=== PATIENT | male | born 1960 | race Caucasian/White ===

== ENCOUNTER 2017-10-28 14:25 | Emergency (ER) | payer OTHER ==
[2017-10-28 14:35] VITALS: BP 147/83; PULSE 97; RESP 20; TEMP 98.1
--- NOTE | 2017-10-28 14:44 | ED ---
ENT HPI - General Chief complaint: ENT Stated complaint: Ear pain Time Seen by Provider: 10/28/17 14:35 Source: patient Mode of arrival: ambulatory Limitations: no limitations - History of Present Illness Initial comments: 57-year-old male patient presents to the emergency department today for evaluation of a "plugged" feeling in his left ear. Patient states that he can hear out of it however sounds muffled. He states that symptoms started after he sneezed a couple days ago. Patient states that he has a lot of problems with wax buildup was concerned that his ear was plugged. He denies any pain to the ear drainage from the ear. He denies any headaches or dizziness currently. He denies any fevers or chills. Patient denies any recent rash, shortness breath, chest pain, abdominal pain, nausea, vomiting, diarrhea, constipation, back pain, numbness, tingling, weakness, hematuria, dysuria, urinary urgency, urinary frequency, headache, visual changes, or any other complaints. - Related Data Home Medications Medication Instructions Recorded Confirmed Cholecalciferol [Vitamin D3] 1,000 unit PO DAILY 03/14/15 03/14/15 Fish Oil/Dha/Epa [Fish Oil 1,200 1 each PO DAILY 03/14/15 03/14/15 mg Fish Oil] Ibuprofen [Advil] 400 mg PO Q8HR PRN 03/14/15 03/14/15 Methocarbamol [Robaxin] 500 mg PO TID 03/14/15 03/14/15 Previous Rx's Medication Instructions Recorded Docusate [Colace] 100 mg PO DAILY #30 capsule 03/14/15 HYDROcodone/APAP 5-325MG [[place] 5] 1 each PO Q4HR PRN #20 tab 03/14/15 Naproxen [Naprosyn] 500 mg PO Q12HR #24 tab 03/14/15 Hydrocodone/Acetaminophen [[place] 2 each PO Q6HR PRN #15 tab 08/27/17 5-325] Fluticasone Nasal [place] [Flonase 1 spray EA NOSTRIL DAILY #1 bottle 10/28/17 Nasal [place]] Allergies Allergy/AdvReac Type Severity Reaction Status Date / Time latex Allergy Rash/Hives Verified 08/27/17 07:24 eye dilating drop Allergy jaw locked Uncoded 08/27/17 07:24 Review of Systems ROS Statement: Those systems with pertinent positive or pertinent negative responses have been documented in the HPI. ROS Other: All systems not noted in ROS Statement are negative. Past Medical History Past Medical History: Osteoarthritis (OA) Additional Past Medical History / Comment(s): Torn meniscus right knee; Vertigo ; Lower back pain History of Any Multi-Drug Resistant Organisms: None Reported Additional Past Surgical History / Comment(s): Varicocele Past Psychological History: No Psychological Hx Reported Smoking Status: Former smoker Past Alcohol Use History: Occasional, Rare Past Drug Use History: None Reported General Exam Limitations: no limitations General appearance: alert, in no apparent distress, other (This is a well- developed, well-nourished adult male patient no acute distress. Vital signs upon presentation are temperature 98.1F, pulse 97, respirations 20, blood pressure 147/83, pulse ox 99% on room air.) Eye exam: Present: normal appearance, PERRL, EOMI. Absent: scleral icterus, conjunctival injection, periorbital swelling ENT exam: Present: normal exam, normal oropharynx, mucous membranes moist, TM's normal bilaterally (Mild right external auditory canal wax build up, TM looks normal. ) Neck exam: Present: normal inspection. Absent: tenderness, meningismus, lymphadenopathy Respiratory exam: Present: normal lung sounds bilaterally. Absent: respiratory distress, wheezes, rales, rhonchi, stridor Cardiovascular Exam: Present: regular rate, normal rhythm, normal heart sounds. Absent: systolic murmur, diastolic murmur, rubs, gallop, clicks Neurological exam: Present: alert, oriented X3, CN II-XII intact Psychiatric exam: Present: normal affect, normal mood Skin exam: Present: warm, dry, intact, normal color. Absent: rash Course Vital Signs 10/28/17 14:32 Temperature 98.1 F Pulse Rate 97 Respiratory 20 Rate Blood Pressure 147/83 O2 Sat by Pulse 99 Oximetry Medical Decision Making - Medical Decision Making 57-year-old male patient presented to the emergency department today for complaints of a plugged feeling in his left ear with muffled hearing. Physical examination is unremarkable. There is no tympanic membrane redness, drainage, or fluid noted. Did discuss use of nasal decongestants and nasal sprays first relief of symptoms. He is instructed to follow-up with ENT if symptoms don't improve over the next week. He is instructed to return here immediately for any new, worsening, or concerning symptoms. Disposition Clinical Impression: Sensation of plugged ear on left side Disposition: HOME SELF-CARE Condition: Good Additional Instructions: Use [id number] nasal decongestant such as Sudafed for relief. He may also try Flonase or a similar product once a day. If symptoms are not improved follow-up with the ears nose and throat specialist. Follow up with your primary care physician for recheck in 1-2 days. Return here immediately for any new, worsening, or concerning symptoms. Prescriptions: Fluticasone Nasal [place] [Flonase Nasal [place]] 1 spray EA NOSTRIL DAILY #1 bottle Referrals: Sabine Priest MD [Primary Care Provider] - 1-2 days Kal Del Real DO [Doctor of Osteopathic Medicine] - 1-2 days Time of Disposition: 14:44
== END 2017-10-28 15:05 | disposition home or self-care (01) ==
LOC: EC 14:25
DX: R20.2 Paresthesia of skin (principal); M19.90 Unspecified osteoarthritis, unspecified site; Z87.891 Personal history of nicotine dependence; Z79.899 Other long term (current) drug therapy; Z91.040 Latex allergy status; Z88.8 Allergy status to other drugs, medicaments and biological substances
CPT/HCPCS: 99282

== ENCOUNTER → 2019-02-15 | Outpatient (CLI) | payer OTHER ==
--- NOTE | 2019-02-15 13:48 | XR ---
EXAMINATION TYPE: XR chest 2V DATE OF EXAM: 02/15/2019 COMPARISON: NONE HISTORY: Presurgical study. TECHNIQUE: Frontal and lateral views of the chest are obtained. FINDINGS: There is no focal air space opacity, pleural effusion, or pneumothorax seen. The cardiac silhouette size is enlarged. Multilevel spurring in thoracic spine is present. IMPRESSION: Cardiomegaly without acute pulmonary process.
[2019-02-15 14:57] LABS: Basophils # (A) 0.1 k/uL (0-0.2); Basophils % (A) 1 %; Eosinophils # (A) 0.2 k/uL (0-0.7); Eosinophils % (A) 3 %; HCT 46.5 % (39.0-53.0); HGB 15.2 gm/dL (13.0-17.5); Lymphocytes # (A) 2.2 k/uL (1.0-4.8); Lymphocytes % (A) 24 %; MCH 27.9 pg (25.0-35.0); MCHC 32.7 g/dL (31.0-37.0); MCV 85.2 fL (80.0-100.0); Mean Platelet Volume 7.5; Monocytes # (A) 0.5 k/uL (0-1.0); Monocytes % (A) 5 %; Neutrophils # (A) 6.1 k/uL (1.3-7.7); Neutrophils % (A) 66 %; Platelet Count 284 k/uL (150-450); RBC 5.46 m/uL (4.30-5.90); WBC 9.2 k/uL (3.8-10.6)
[2019-02-15 15:03] LABS: ALT 47 U/L (21-72); AST 36 U/L (17-59); Albumin 4.7 g/dL (3.5-5.0); Alkaline Phosphatase 93 U/L (38-126); Anion Gap 11 mmol/L; Blood Urea Nitrogen 14 mg/dL (9-20); Calcium 9.7 mg/dL (8.4-10.2); Carbon Dioxide 25 mmol/L (22-30); Chloride 105 mmol/L (98-107); Glucose 95 mg/dL (74-99); Potassium 4.2 mmol/L (3.5-5.1); Sodium 141 mmol/L (137-145); Total Bilirubin 0.7 mg/dL (0.2-1.3); Total Protein 7.8 g/dL (6.3-8.2)
[2019-02-15 15:09] LABS: Partial Thromboplastin Time 25.5 sec (22.0-30.0); Prothrombin Time 10.5 sec (9.0-12.0)
[2019-02-15 15:17] LABS: Appearance,Urine Clear (Clear); Bilirubin,Urine Negative (Negative); Blood,Urine Small (Negative); Color,Urine Yellow; Glucose,Urine (UA) Negative (Negative); Ketones,Urine Negative (Negative); Leukocyte Esterase,Urine Trace (Negative); Mucus,Urine Many /hpf; Nitrite,Urine Negative (Negative); PH, Urine 6.5 (5.0-8.0); Protein,Urine Trace (Negative); RBC,Urine 11 /hpf (0-5); Specific Gravity,Urine 1.029 (1.001-1.035); Squamous Epithelial Cell,Urine 1 /hpf (0-4); Urobilinogen,Urine <2.0 mg/dL (<2.0); WBC,Urine 5 /hpf (0-5)
== END | disposition home or self-care (01) ==
LOC: RADXRMAIN 13:21
PROVIDERS: ATTEND Orthopaedic Surgery Orthopaedic Surgery of the Spine
DX: Z01.818 Encounter for other preprocedural examination (principal); I51.7 Cardiomegaly; Z01.810 Encounter for preprocedural cardiovascular examination; Z01.812 Encounter for preprocedural laboratory examination
CPT/HCPCS: 71046; 80053; 81001; 85025; 85610; 85730; 87070; 93005

== ENCOUNTER → 2019-02-22 | Outpatient (CLI) | payer OTHER ==
[2019-02-22 11:50] LABS: Appearance,Urine Clear (Clear); Bilirubin,Urine Negative (Negative); Blood,Urine Negative (Negative); Color,Urine Yellow; Glucose,Urine (UA) Negative (Negative); Ketones,Urine Negative (Negative); Leukocyte Esterase,Urine Negative (Negative); Nitrite,Urine Negative (Negative); PH, Urine 6.5 (5.0-8.0); Protein,Urine Negative (Negative); Specific Gravity,Urine 1.021 (1.001-1.035); Urobilinogen,Urine <2.0 mg/dL (<2.0)
== END | disposition home or self-care (01) ==
LOC: LABPAT 10:38
PROVIDERS: ATTEND Orthopaedic Surgery Orthopaedic Surgery of the Spine
DX: Z01.812 Encounter for preprocedural laboratory examination (principal); M48.00 Spinal stenosis, site unspecified
CPT/HCPCS: 81003

== ENCOUNTER 2019-02-25 11:32 | Day surgery (SDC) | payer OTHER ==
[~2019-02-25 11:32] MED LIST: BACITRACIN 50,000 UNIT, POLYMYXIN B 500,000 UNIT in SODIUM CHLORIDE 0.9% IRRIGATIO 1,00... IRRIGATION ONE; ceFAZolin 3 GM in SODIUM CHLORIDE 0.9% 100 ML IVPB ONE; ceFAZolin IN SWFI 2 GM/20 ML SYRINGE IVP ONE
[2019-02-25] MEDS ORDERED: LACTATED RINGERS 1,000 ML IV ONE ×2 (12:46→14:56)
[2019-02-25] MEDS ORDERED: LIDOCAINE 1% 20 ML VIAL (10MG/ML) FOR IV START INTRADERMA ONE (12:47)
[2019-02-25 12:49] LABS: Glucose,Whole Blood 105 mg/dL (75-99)
[2019-02-25] MEDS ORDERED: ONDANSETRON 4 MG/2 ML VIAL IVP ONE (12:50)
[2019-02-25] MEDS ORDERED: fentaNYL (PF) 50 MCG/ML 2 ML AMP ONE (13:27)
[2019-02-25] MEDS ORDERED: PROPOFOL 10 MG/ML 20 ML VIAL IV ONE (13:27)
[2019-02-25] MEDS ORDERED: NEOSTIGMINE 1 MG/ML 10 ML VIAL ONE (13:27)
[2019-02-25] MEDS ORDERED: LIDOCAINE 1% INJ 10MG/ML (20 ML MDV) ONE (13:27)
[2019-02-25] MEDS ORDERED: GLYCOPYRROLATE 0.2 MG/ML 2 ML VIAL ONE (13:27)
[2019-02-25] MEDS ORDERED: ROCURONIUM BROMIDE 10 MG/ML 10 ML VIAL IV ONE (13:27)
[2019-02-25] MEDS ORDERED: SUCCINYLCHOLINE CHLORIDE VIAL 200 MG/10 ML VIAL IV ONE (13:27)
[2019-02-25] MEDS ORDERED: MIDAZOLAM 2 MG/2 ML VIAL ONE (13:27)
[2019-02-25] MEDS ORDERED: SODIUM CHLORIDE 0.9% IV ONE ×2 (13:37)
[2019-02-25] MEDS ORDERED: CEFOXITIN IV ONE ×2 (13:37)
[2019-02-25] MEDS ORDERED: GELATIN SPONGE,ABSORB (LARGE) 1 EACH SPONGE TOPICAL ONE (13:56)
[2019-02-25] MEDS ORDERED: methylPREDNISolone ACETATE 40 MG/ML 1 ML VIAL MISCELLANE ONE (13:56)
[2019-02-25] MEDS ORDERED: LIDOCAINE 0.5%-EPI 1:200,000 50 ML VIAL SQ ONE (13:56)
[2019-02-25] MEDS ORDERED: THROMBIN (BOVINE) 5,000 UNIT VIAL TOPICAL ONE (13:56)
--- NOTE | 2019-02-25 14:47 | XR ---
EXAMINATION TYPE: XR lumbar spine 1V DATE OF EXAM: 02/25/2019 COMPARISON: NONE HISTORY: Lumbar spine needle placement. TECHNIQUE: Single view of the lumbar spine crosstable lateral FINDINGS/IMPRESSION: Localization of the L3 vertebral body is seen with moderate multilevel degenerat ric disc disease of the lumbar spine, partially visualized and suboptimal technique but this crosstab le lateral single view only.
[2019-02-25] MEDS ORDERED: BENZOCAINE/MENTHOL LOZENG 1 EACH LOZENGE MUCOUS MEM PRN (15:10)
[2019-02-25] MEDS ORDERED: ONDANSETRON 4 MG/2 ML VIAL IVP PRN (15:10)
[2019-02-25] MEDS ORDERED: IBUPROFEN 600 MG TAB PO PRN (15:10)
[2019-02-25] MEDS ORDERED: HYDROmorphone 1 MG/ML 1 ML SYRINGE IVP PRN (15:10)
[2019-02-25] MEDS ORDERED: HYDROmorphone 0.5 MG/0.5 ML SYRINGE IVP PRN (15:10)
[2019-02-25] MEDS ORDERED: ACETAMINOPHEN TAB 500 MG TAB PO PRN (15:11)
--- NOTE | 2019-02-25 15:18 | P.OP ---
Date of Procedure: 02/25/19 Preoperative Diagnosis: Spinal stenosis L2-3, L3 4, Neurogenic claudication bilateral lower extremities Lower extremity radiculopathy Low back pain Degenerative disc disease Postoperative Diagnosis: Same Anesthesia: GETA Pathology: none sent Condition: stable Disposition: PACU Operative Findings: BRIEF OPERATIVE NOTE Preoperative Diagnosis: Severe Spinal stenosis L2-3, L3 4, Neurogenic claudication bilateral lower extremities Lower extremity radiculopathy Low back pain Degenerative disc disease Postoperative Diagnosis: Same Procedure: Laminectomy and decompression with wide bilateral foraminotomies L2-3 and L3 4 Placement of the interlaminar stabilization device, Coflex device at L2-3 and L3 4 Surgeon: Dr. Medina Elevator Worker: Paulino Duran is present throughout the entire the case persistence during positioning, dissection, exposure, visualization, and all crucial elements of the case as well as closure. Anesthesia: General anesthesia per Dr. Dr. Watkins Estimated blood loss: approximately 100 mL Complications: None apparent Components implanted: Coflex interlaminar stabilization device L3 4 and L2-3, measuring 10 mm at L2-3 and 12 mm at L3 4 Disposition: To recovery room in good stable condition. OPERATIVE INDICATIONS The patient has been having issues in their lower back and lower extremities. he is having severe claudication symptoms due to her severe spinal stenosis at her lumbar spine particularly at L3 4 and L4 5. We discussed various treatment options. The patient has been through conservative treatment. he is not having any prolonged benefit despite aggressive conservative treatment We discussed various treatment options including surgery, ranging from laminectomy alone to the possibility of decompression with stabilization as well as the decompression and fusion. His primary symptoms were that of lower extremity neurogenic claudication he was having significant a decreased ability to walk. He does have history of diabetes as well as morbid obesity though he had significant symptoms stemming from his spinal stenosis as well. We felt that the patient could benefit with decompression and interlaminar stabilization,and the patient wishes to proceed with surgery We discussed the risk, patient's alternatives and benefits of surgery including but not limited to, risk of bleeding risk of infection, risk of need for further surgery, risk of decreased, loss of motion, loss of function, nerve damage, paralysis, heart attack, blindness and . OPERATIVE SUMMARY After discussing all the risks, patient alternatives and benefits at length, the patient elected to proceed with surgical intervention, signed informed consent, and presented for their procedure. The patient was seen and examined in the preoperative holding area and the surgical site was marked. The patient was given antibiotics and brought to the operating room. The patient was sedated and intubated by anesthesia in standard fashion. The patient was positioned on to the operating room table in a prone position on the appropriate frame which was well-padded and well molded. We were careful to pad any bony prominences and pressure points. We were careful to maintain the patient's cervical spine and good neutral alignment and position throughout. The patient was prepped and draped in a normal standard fashion. An appropriate timeout and keystone protocol performed. We were able to proceed with the surgery. Fluoroscopy was utilized to establish the appropriate level. The local wound area was infiltrated with local anesthetic. An incision was made at the midline longitudinally over the appropriate levels at L3 4 and 2-3. Dissection was taken down subcutaneously to the level of the fascia which was split midline. Dissection was taken over the lamina. Intraoperative fluoroscopy was taken which showed a marker at the appropriate level at L3 pedicle and the interspace of L2-3 . With the appropriate level positively confirmed, we were able to proceed with laminectomy. The wound was copiously irrigated and suctioned dry as had been done periodically throughout the case. I performed a laminectomy with a combination of curettes and a high- speed bur and Kerrison rongeurs. A small medial facetectomy was performed again further access. A partial foraminotomy was also performed. Portions of the ligamentum flavum were taken down to expose the dura and traversing nerve root. There is severe thickening of the ligamentum flavum and significant facet hype rtrophy with osteophytes causing severe central and bilateral foraminal stenosis. This was remedied with the decompression.There is no evidence of dural tear or leak. Good hemostasis maintained. The wound was copiously irrigated and suctioned dry. Good decompression was noted. This was done first at L34 and then at L2-3. I was unable to measure the appropriate size interlaminar stabilizing device. I was able get good alignment at the intralaminar spaces. I was able to trial with the appropriate size device and get gentle distraction at each level. I chose he is appropriate size interlaminar stabilizer. The Coflex device was positioned and malleted in place and good alignment good position with good fixation at each level. The construct was checked and found to be stable. There is good decompression without any evidence of dural tear or leak. There is no evidence of fracture. We were able to proceed with closure. The fascia was closed for a watertight closure. The subcuticular tissue was closed with absorbable suture. The wound was cleaned and dried and dressed with the appropriate dressing. The drapes were broken down. The patient was gently rolled back onto their hospital bed being careful to maintain their cervical spine and good neutral alignment and position. They were woken up by anesthesia, extubated, and brought to the recovery room in good stable condition. The patient will be admitted to the hospital for observation and for appropriate postoperative care, medical management and monitoring. We will continue to follow them closely about the postoperative course.
[2019-02-25 15:42] LABS: Glucose,Whole Blood 133 mg/dL (75-99)
[2019-02-25 18:03] VITALS: BMI 45.4
[2019-02-25] MEDS: metFORMIN 500 MG TAB PO SCH (18:13)
[2019-02-25] MEDS: CYCLOBENZAPRINE 5 MG TAB PO SCH (18:13)
[2019-02-25] MEDS: HYDROcodone/APAP 5-325MG 1 EACH TAB PO PRN ×2 (18:13→23:06)
[2019-02-25] MEDS: SODIUM CHLORIDE 0.9% 1,000 ML IV SCH (19:22)
[2019-02-25] MEDS: ceFAZolin 3 GM in SODIUM CHLORIDE 0.9% 100 ML IVPB SCH (20:10)
[2019-02-25] MEDS: GABAPENTIN 300 MG CAP PO SCH (20:10)
[2019-02-26] MEDS: SODIUM CHLORIDE 0.9% 1,000 ML IV SCH (04:02)
[2019-02-26] MEDS: CYCLOBENZAPRINE 5 MG TAB PO SCH ×2 (04:02→08:21)
[2019-02-26] MEDS: ceFAZolin 3 GM in SODIUM CHLORIDE 0.9% 100 ML IVPB SCH (04:43)
[2019-02-26 08:06] VITALS: BP 112/70; PULSE 83; RESP 16; TEMP 97.6
[2019-02-26] MEDS: metFORMIN 500 MG TAB PO SCH (08:21)
[2019-02-26] MEDS: GABAPENTIN 300 MG CAP PO SCH (08:21)
[2019-02-26] MEDS: HYDROcodone/APAP 5-325MG 1 EACH TAB PO PRN (08:22)
[2019-02-26] MEDS ORDERED: MONTELUKAST 10 MG TAB PO SCH (09:00)
[2019-02-26] MEDS ORDERED: SENNOSIDES-DOCUSATE SODIUM 1 EACH TAB PO SCH (09:00)
[2019-02-26] MEDS ORDERED: HYDROCHLOROTHIAZIDE 25 MG TAB PO SCH (09:00)
[2019-02-26] MEDS ORDERED: ATORVASTATIN 20 MG TAB PO SCH (09:00)
[2019-02-26] MEDS ORDERED: ASPIRIN 81 MG PO SCH (09:00)
[2019-02-26] MEDS ORDERED: amLODIPine 10 MG TAB PO SCH (09:00)
--- NOTE | 2019-02-26 12:24 | P.DS ---
Providers Date of admission: 02/26/2019 Expected date of discharge: 02/26/19 Attending physician: Bhumika Medina Primary care physician: Jacob Segura - Discharge Diagnosis(es) (1) Lumbar spinal stenosis Current Visit: Yes Status: Acute (2) Lumbar degenerative disc disease Current Visit: Yes Status: Acute (3) Radiculopathy with lower extremity symptoms Current Visit: Yes Status: Acute (4) Low back pain Current Visit: Yes Status: Acute (5) Degenerative scoliosis Current Visit: Yes Status: Acute (6) Hypertension Current Visit: Yes Status: Acute (7) Type 2 diabetes mellitus Current Visit: Yes Status: Acute Hospital Course: This is a pleasant 58-year-old male who presented with L2-3 and L3-4 spinal canal stenosis, low back pain, lower extremity radiculopathy, lumbar degenerative disc disease, and neurogenic claudication who failed outpatient conservative therapy. He was admitted for an L2-3 and L3-4 laminectomy decompression with wide bilateral foraminotomies with placement of interlaminar stabilization device. The patient tolerated the procedure well and did well postoperatively. He feels his lower extremity radiculopathy symptoms have significantly improved postoperatively. He has some pain at the surgical site which has been controlled with medication. He has been able to ambulate the hallways. He is eating and voiding without difficulty. He is very happy with his progress postoperatively. He feels he is ready for discharge today. Condition on day of discharge stable. Patient will be discharged home. Patient was cleared preoperatively for surgery by Dr. Segura. Patient currently denies any nausea, vomiting, fever, or chills. Patient may shower Tegaderm dressing intact. Patient may remove Tegaderm dressing in 3 days and shower without a dressing at that time. Patient should keep Steri-Strips intact and allow them to fall off naturally. Patient should refrain from driving until at least after their first follow-up appointment in the office. Patient should avoid excessive bending, lifting, and twisting; no lifting greater than 10 pounds. Patient has a past medical history which includes hypertension and type 2 diabetes. Patient may resume previous prescribed home medications while avoiding previous he prescribed ibuprofen and other anti-inflammatory medications. MAPS has been reviewed today, 02/26/2019, with an Overall Overdose Risk Score of 200 with a narcotic score of 181. An "Opiod Start Talking" Forn has been signed by the patient and myself in place in the patient's chart. A prescription has been written for [place] 5 mg/325 mg per take 1 tab every 6 hours as needed for pain, dispensed #28. Patient should avoid anti-inflammatory medications over the next 6 weeks postoperatively. Physical Exam on day of discharge: Patient is awake, alert, and oriented 3 Vital signs stable Good chest excursion with deep inspiration and expiration Abdomen soft nontender No signs or symptoms of DVT; no calf pain Extensor hallucis longus, plantarflexion, and dorsiflexion positive sustained bilateral lower extremities Patient is able to lift legs independently without significant difficulty bilaterally Incision is dry and intact with 2 small areas of dried blood; no erythema, purulence, or signs of infection No significant pain on palpation over the surgical site Tegaderm dressing and non-stick Telfa intact Procedures: L2-3 and L3-4 laminectomy decompression with wide bilateral foraminotomies with placement of interlaminar stabilization device Patient Condition at Discharge: Stable Plan - Discharge Summary Discharge Rx Participant: Yes New Discharge Prescriptions: New HYDROcodone/APAP 5-325MG [[place] 5-325] 1 tab PO Q6HR PRN 7 Days #28 tab PRN Reason: Pain No Action Ibuprofen [Advil] 1,200 mg PO Q6HR PRN PRN Reason: Pain Fish Oil/Dha/Epa [Fish Oil 1,200 mg Fish Oil] 1,000 mg PO DAILY Acetaminophen [Tylenol Extra Strength] 1,000 mg PO TID amLODIPine BESYLATE 10 mg PO DAILY Atorvastatin [Lipitor] 20 mg PO DAILY Ergocalciferol [Vitamin D2] 50,000 unit PO Q30D Gabapentin [Neurontin] 600 mg PO BID Hydrochlorothiazide [Hydrodiuril] 25 mg PO DAILY metFORMIN HCL [metFORMIN HCL ER] 750 mg PO AC-SUPPER Montelukast Sodium [Singulair] 10 mg PO DAILY Aspirin [Adult Low Dose Aspirin EC] 81 mg PO DAILY Calcium Carbonate [Tums] 500 - 1,000 mg PO QID PRN PRN Reason: GERD Cyclobenzaprine [Flexeril] 5 mg PO TID Discharge Medication List Fish Oil/Dha/Epa [Fish Oil 1,200 mg Fish Oil] 1,000 mg PO DAILY 03/14/15 [Histo ry] Ibuprofen [Advil] 1,200 mg PO Q6HR PRN 03/14/15 [History] Acetaminophen [Tylenol Extra Strength] 1,000 mg PO TID 02/15/19 [History] Aspirin [Adult Low Dose Aspirin EC] 81 mg PO DAILY 02/15/19 [History] Atorvastatin [Lipitor] 20 mg PO DAILY 02/15/19 [History] Calcium Carbonate [Tums] 500 - 1,000 mg PO QID PRN 02/15/19 [History] Ergocalciferol [Vitamin D2] 50,000 unit PO Q30D 02/15/19 [History] Gabapentin [Neurontin] 600 mg PO BID 02/15/19 [History] Hydrochlorothiazide [Hydrodiuril] 25 mg PO DAILY 02/15/19 [History] Montelukast Sodium [Singulair] 10 mg PO DAILY 02/15/19 [History] amLODIPine BESYLATE 10 mg PO DAILY 02/15/19 [History] metFORMIN HCL [metFORMIN HCL ER] 750 mg PO AC-SUPPER 02/15/19 [History] Cyclobenzaprine [Flexeril] 5 mg PO TID 02/25/19 [History] HYDROcodone/APAP 5-325MG [[place] 5-325] 1 tab PO Q6HR PRN 7 Days #28 tab 02/26/19 [Rx] Follow up Appointment(s)/Referral(s): Bhumika Medina DO [Doctor of Osteopathic Medicine] - 2 Weeks Activity/Diet/Wound Care/Special Instructions: Keep site clean. May shower with waterproof Tegaderm intact. Do not soak in a tub. After 72 hours postoperatively, patient May remove dressing and then may shower with area uncovered. Leave Steri-Strips intact and allow them to fray off on their own. May ambulate as tolerated. Avoid heavy or rigorous activity. No repetitive bending twisting or lifting. Take medication as prescribed No overhead work. Discharge Disposition: HOME SELF-CARE
== END 2019-02-26 13:48 | disposition home or self-care (01) ==
LOC: OR 11:32 → 4SSUR 17:24 → OR 02-26 13:48
PROVIDERS: ATTEND Orthopaedic Surgery Orthopaedic Surgery of the Spine
DX: M48.062 Spinal stenosis, lumbar region with neurogenic claudication (principal); M51.16 Intervertebral disc disorders with radiculopathy, lumbar region; M25.78 Osteophyte, vertebrae; M24.28 Disorder of ligament, vertebrae; I10 Essential (primary) hypertension; E11.40 Type 2 diabetes mellitus with diabetic neuropathy, unspecified; Z83.3 Family history of diabetes mellitus; Z87.891 Personal history of nicotine dependence; E66.01 Morbid (severe) obesity due to excess calories; Z68.41 Body mass index [BMI] 40.0-44.9, adult; M19.90 Unspecified osteoarthritis, unspecified site; K21.9 Gastro-esophageal reflux disease without esophagitis; Z79.84 Long term (current) use of oral hypoglycemic drugs; Z79.1 Long term (current) use of non-steroidal anti-inflammatories (NSAID); Z79.891 Long term (current) use of opiate analgesic; Z79.899 Other long term (current) drug therapy; Z91.048 Other nonmedicinal substance allergy status
CPT/HCPCS: 22867; 22868; 97161; 72020; C1713; J2250; J0330; J1030; J2710; J0690 ×2; J2405; J0694; J2001; J3010; J2704; 86850; 86900; 86901

== ENCOUNTER 2019-07-03 16:32 | Emergency (ER) | payer OTHER ==
[2019-07-03 16:49] VITALS: RESP 18
[2019-07-03] MEDS ORDERED: HYDROcodone/APAP 10-325MG 1 EACH TAB PO ONE (17:36)
[2019-07-03 19:11] LABS: Appearance,Urine Clear (Clear); Bacteria,Urine Rare /hpf; Bilirubin,Urine Negative (Negative); Blood,Urine Trace (Negative); Color,Urine Yellow; Glucose,Urine (UA) Negative (Negative); Ketones,Urine Negative (Negative); Leukocyte Esterase,Urine Negative (Negative); Mucus,Urine Few /hpf; Nitrite,Urine Negative (Negative); PH, Urine 5.5 (5.0-8.0); Protein,Urine Trace (Negative); RBC,Urine 4 /hpf (0-5); Specific Gravity,Urine 1.027 (1.001-1.035); Squamous Epithelial Cell,Urine <1 /hpf (0-4); Urobilinogen,Urine <2.0 mg/dL (<2.0)
--- NOTE | 2019-07-03 19:16 | US ---
EXAMINATION TYPE: US scrotum with doppler. Grayscale and color Doppler Duplex imaging performed of diana eugene scrotum. DATE OF EXAM: 07/03/2019 COMPARISON: US CLINICAL HISTORY: pain. Right testicular pain x 9 hours. EXAM MEASUREMENTS: TESTICLES: Right Testicle: 4.2 x 3.0 x 2.5 cm Left Testicle: 4.3 x 2.2 x 2.5 cm EPIDIDYMIS HEAD: Right Epididymis: 1.3 x 0.7 x 1.1 cm. Appears heterogeneous. Left Epididymis: 1.3 x 1.5 x 1.2 cm. Appears heterogeneous. Hypoechoic area seen measurin.8 x 0. 6 x 0.4 cm. Doppler performed to assess for testicular vascularity; venous waveforms are limited in visibility fo r bilateral testicles. Venous waveform not seen with certainty in right testicle. Presence of hydroceles: Anechoic areas seen bilaterally, appears larger on right side. Presence of varicoceles: Vessels lateral to right testicle measure 2.4 mm. Vessels lateral to left testicle measure 2.7 mm. IMPRESSION: 1. 0.6 cm left epididymal cyst. 2. Arterial vascular flow to the bilateral testicles appear symmetrical 3. Small bilateral hydroceles.
--- NOTE | 2019-07-03 19:40 | ED ---
Male Urogenital HPI - General Chief complaint: Urogenital Stated complaint: Poss hernia Time Seen by Provider: 07/03/19 17:17 Source: patient Mode of arrival: ambulatory Limitations: no limitations - History of Present Illness Initial comments: Patient complains of acute onset right testicular pain. He has no belly pain. He has no back pain. He has no flank pain. He has no nausea or vomiting. He has taken no medicine for this. He has no dysuria. He has no frequency or urgency of urination. Nothing makes the pain better or worse. - Related Data Home Medications Medication Instructions Recorded Confirmed Ibuprofen [Advil] 400 mg PO TID 03/14/15 07/03/19 Acetaminophen [Tylenol Extra 1,000 mg PO TID 02/15/19 07/03/19 Strength] Aspirin [Adult Low Dose Aspirin EC] 81 mg PO DAILY 02/15/19 07/03/19 Atorvastatin [Lipitor] 20 mg PO DAILY 02/15/19 07/03/19 Gabapentin [Neurontin] 600 mg PO BID 02/15/19 07/03/19 Hydrochlorothiazide [Hydrodiuril] 25 mg PO DAILY 02/15/19 07/03/19 Montelukast Sodium [Singulair] 10 mg PO DAILY 02/15/19 07/03/19 amLODIPine BESYLATE 10 mg PO DAILY 02/15/19 07/03/19 metFORMIN HCL [metFORMIN HCL ER] 750 mg PO AC-SUPPER 02/15/19 07/03/19 Lisinopril [Zestril] 2.5 - 5 mg PO DAILY 07/03/19 07/03/19 [place]-3 Fatty Acids/Fish Oil [Fish 1 cap PO DAILY 07/03/19 07/03/19 Oil 1,000 mg Softgel] traMADol HCL 50 mg PO TID PRN 07/03/19 07/03/19 Allergies Allergy/AdvReac Type Severity Reaction Status Date / Time latex Allergy REDNESS Verified 07/03/19 17:45 eye dilating drop AdvReac jaw locked Uncoded 07/03/19 17:45 Review of Systems ROS Statement: Those systems with pertinent positive or pertinent negative responses have been documented in the HPI. ROS Other: All systems not noted in ROS Statement are negative. Past Medical History Past Medical History: Osteoarthritis (OA) Additional Past Medical History / Comment(s): Torn meniscus right knee; Vertigo; Lower back pain History of Any Multi-Drug Resistant Organisms: None Reported Additional Past Surgical History / Comment(s): Varicocele Past Anesthesia/Blood Transfusion Reactions: Family History of Problems w/ Anesthesia Additional Past Anesthesia/Blood Transfusion Reaction / Comment(s): BROTHERS HAD REACTION, UNSURE WHAT. Past Psychological History: No Psychological Hx Reported Smoking Status: Former smoker Past Alcohol Use History: Occasional, Rare Past Drug Use History: None Reported - Past Family History Father Brother(s) Family Medical History: Cancer Sister(s) Family Medical History: Deep Vein Thrombosis (DVT) General Exam Limitations: no limitations General appearance: alert, in no apparent distress Head exam: Present: atraumatic, normocephalic, normal inspection Eye exam: Present: normal appearance, PERRL, EOMI. Absent: scleral icterus, conjunctival injection, periorbital swelling ENT exam: Present: normal exam, mucous membranes moist Neck exam: Present: normal inspection. Absent: tenderness, meningismus, lymphadenopathy Respiratory exam: Present: normal lung sounds bilaterally. Absent: respiratory distress, wheezes, rales, rhonchi, stridor Cardiovascular Exam: Present: regular rate, normal rhythm, normal heart sounds. Absent: systolic murmur, diastolic murmur, rubs, gallop, clicks GI/Abdominal exam: Present: soft, normal bowel sounds. Absent: distended, tenderness, guarding, rebound, rigid Extremities exam: Present: normal inspection, full ROM, normal capillary refill. Absent: tenderness, pedal edema, joint swelling, calf tenderness Back exam: Present: normal inspection Neurological exam: Present: alert, oriented X3, CN II-XII intact Psychiatric exam: Present: normal affect, normal mood Skin exam: Present: warm, dry, intact, normal color. Absent: rash Course Vital Signs 07/03/19 16:47 Temperature 98.2 F Pulse Rate 99 Respiratory 18 Rate Blood Pressure 127/77 O2 Sat by Pulse 93 L Oximetry Medical Decision Making - Medical Decision Making Patient complains of acute right testicular pain. Ultrasound shows no evidence of torsion. His examination shows no evidence of discoloration or other outward signs of infection. He has no evidence of Sena's gangrene or other types of sialitis. His examination does not reveal any evidence of hernia. When I spoke with the patient again his pain has completely resolved. There is nothing to suggest orchitis or epididymitis. I explained to the patient that he might have an intermittent torsion. However, given that he is pain-free in the ultrasound is negative for torsion there is no emergent indication for operative management. I explained to the patient he needs to follow-up with urology very soon for reevaluation and possible elective outpatient surgery. I explained to him that if his pain returns or if he develops any other proms or complaints he must return to the emergency department immediately. I explained to him that as this could be an intermittent torsion could return, resulting in pain, and he should return to the ER immediately if that is the case. Patient verbalized understanding of all this information and is in agreement with this plan. - Lab Data Lab Results 07/03/19 Range/Units 18:35 Urine Color Yellow Urine Appearance Clear (Clear) Urine pH 5.5 (5.0-8.0) Ur Specific [place] 1.027 (1.001-1.035) Urine Protein Trace H (Negative) Urine Glucose (UA) Negative (Negative) Urine Ketones Negative (Negative) Urine Blood Trace H (Negative) Urine Nitrite Negative (Negative) Urine Bilirubin Negative (Negative) Urine Urobilinogen <2.0 (<2.0) mg/dL Ur Leukocyte Esterase Negative (Negative) Urine RBC 4 (0-5) /hpf Urine WBC 1 (0-5) /hpf Ur Squamous Epith Cells <1 (0-4) /hpf Urine Bacteria Rare H (None) /hpf Urine Mucus Few H (None) /hpf Disposition Clinical Impression: Testicular pain, right Disposition: HOME SELF-CARE Condition: Good Instructions (If sedation given, give patient instructions): Testicle Pain (ED) Is patient prescribed a controlled substance at d/c from ED?: No Referrals: Jacob Segura MD [Primary Care Provider] - 1-2 days
[2019-07-03 19:42] VITALS: BP 169/87; PULSE 89; TEMP 97.9
== END 2019-07-03 19:58 | disposition home or self-care (01) ==
LOC: EC 16:32
DX: N50.811 Right testicular pain (principal); M19.90 Unspecified osteoarthritis, unspecified site; Z87.891 Personal history of nicotine dependence; Z88.8 Allergy status to other drugs, medicaments and biological substances; Z91.040 Latex allergy status; Z79.1 Long term (current) use of non-steroidal anti-inflammatories (NSAID); Z79.82 Long term (current) use of aspirin; Z79.899 Other long term (current) drug therapy
CPT/HCPCS: 76870; 81001; 93975; 99284

== ENCOUNTER → 2020-03-11 | Outpatient (CLI) | payer OTHER | END | disposition home or self-care (01) | LOC: RADMRIMAIN 09:03 | PROVIDERS: ATTEND Orthopaedic Surgery Orthopaedic Surgery of the Spine | DX: Z53.9 Procedure and treatment not carried out, unspecified reason (principal) ==

== ENCOUNTER → 2020-09-29 | Outpatient (CLI) | payer OTHER ==
[2020-09-29 14:06] LABS: Basophils # (A) 0.1 k/uL (0-0.2); Basophils % (A) 1 %; Eosinophils # (A) 0.2 k/uL (0-0.7); Eosinophils % (A) 2 %; HCT 46.7 % (39.0-53.0); HGB 15.5 gm/dL (13.0-17.5); Lymphocytes # (A) 2.4 k/uL (1.0-4.8); Lymphocytes % (A) 20 %; MCHC 33.1 g/dL (31.0-37.0); MCV 87.8 fL (80.0-100.0); Mean Platelet Volume 7.4; Monocytes # (A) 0.6 k/uL (0-1.0); Monocytes % (A) 5 %; Neutrophils # (A) 8.7 k/uL (1.3-7.7); Neutrophils % (A) 71 %; Platelet Count 314 k/uL (150-450); RBC 5.33 m/uL (4.30-5.90); RDW 13.3 % (11.5-15.5); WBC 12.2 k/uL (3.8-10.6)
[2020-09-29 23:11] LABS: African American GFR (CKD) 105.7 (60.0-200.0); Albumin 4.9 g/dL (3.80-4.90); Albumin/Globulin Ratio 2.04 (1.60-3.17); Anion Gap 16.7 mmol/L (4.00-12.00); BUN/Creat Ratio 24.44 Ratio (12.00-20.00); Calcium 9.4 mg/dL (8.7-10.3); Carbon Dioxide 22.3 mmol/L (21.6-31.8); Globulin 2.4 g/dL (1.6-3.3); LDL Cholesterol,Calculated 92.4 mg/dL (0.0-131.0); Non-African American GFR(CKD) 91.2 (60.0-200.0); Potassium 4.1 mmol/L (3.5-5.5); Total Bilirubin 0.5 mg/dL (0.3-1.2); Total Protein 7.3 g/dL (6.2-8.2); VLDL Calculation 39.6 mg/dL (5.00-40.00)
[2020-09-29 23:17] LABS: Prostate Specific Antigen 0.5 ng/mL (0.0-4.5)
[2020-09-29 23:23] LABS: Hemoglobin A1C 7.9 % (4.0-6.0)
[2020-09-30 04:50] LABS: Urine Creatinine 130.1 mg/dL
== END | disposition home or self-care (01) ==
LOC: LABWHC1 13:25
PROVIDERS: ATTEND Family Medicine
DX: Z00.00 Encounter for general adult medical examination without abnormal findings (principal); Z12.5 Encounter for screening for malignant neoplasm of prostate; E55.9 Vitamin D deficiency, unspecified; I10 Essential (primary) hypertension; E11.40 Type 2 diabetes mellitus with diabetic neuropathy, unspecified
CPT/HCPCS: 36415; 80053; 80061; 82043; 82306; 82570; 83036; 84153; 84443; 85025

== ENCOUNTER 2020-10-18 17:53 | Observation (INO) | payer OTHER ==
[2020-10-18] MEDS ORDERED: MECLIZINE 12.5 MG TAB PO STA (18:16)
[2020-10-18 18:47] LABS: Glucose,Whole Blood 190 mg/dL (75-99)
[2020-10-18 18:59] LABS: INR 1.1 (<1.2); Prothrombin Time 11.2 sec (9.0-12.0)
[2020-10-18 19:02] LABS: ALT 49 U/L (4-49); AST 47 U/L (17-59); African American GFR (CKD) >90 (>60 ml/min/1.73 sqM); Albumin 4.6 g/dL (3.5-5.0); Alkaline Phosphatase 77 U/L (38-126); Anion Gap 15 mmol/L; Blood Urea Nitrogen 14 mg/dL (9-20); Calcium 9.3 mg/dL (8.4-10.2); Carbon Dioxide 23 mmol/L (22-30); Chloride 96 mmol/L (98-107); Glucose 176 mg/dL (74-99); Non-African American GFR(CKD) >90 (>60 ml/min/1.73 sqM); Sodium 134 mmol/L (137-145); Total Bilirubin 0.8 mg/dL (0.2-1.3)
[2020-10-18 19:03] LABS: Basophils # (A) 0.1 k/uL (0-0.2); Basophils % (A) 0 %; Eosinophils # (A) 0.1 k/uL (0-0.7); Eosinophils % (A) 1 %; HCT 41.7 % (39.0-53.0); HGB 13.9 gm/dL (13.0-17.5); Lymphocytes # (A) 1.7 k/uL (1.0-4.8); Lymphocytes % (A) 16 %; MCH 28.2 pg (25.0-35.0); MCHC 33.2 g/dL (31.0-37.0); MCV 84.7 fL (80.0-100.0); Mean Platelet Volume 7.6; Monocytes # (A) 0.5 k/uL (0-1.0); Monocytes % (A) 4 %; Neutrophils # (A) 8.6 k/uL (1.3-7.7); Neutrophils % (A) 77 %; Platelet Count 280 k/uL (150-450); RBC 4.92 m/uL (4.30-5.90); RDW 13.6 % (11.5-15.5); WBC 11.1 k/uL (3.8-10.6)
[2020-10-18 19:11] LABS: Potassium 4.6 mmol/L (3.5-5.1)
[2020-10-18] MEDS ORDERED: SODIUM CHLORIDE 0.9% 1,000 ML IV ONE ×2 (19:17→22:12)
[2020-10-18] MEDS ORDERED: SODIUM CHLORIDE 0.9% 500 ML 500 ML IV ONE (19:17)
--- NOTE | 2020-10-18 19:21 | ED ---
General Adult HPI - General Chief complaint: Dizziness Stated complaint: Dizziness Time Seen by Provider: 10/18/20 18:06 Source: patient Mode of arrival: ambulatory Limitations: no limitations - History of Present Illness Initial comments: 60-year-old male presenting today for chief complaint of dizziness. Patient states about 15 years ago he struggled with a lot of vertigo. He states that today whenever he moved or walked he had significant dizziness as though the room was spinning he denies presyncope shortness of breath chest pain pressure he denies diplopia vision loss speech changes weakness of the upper and lower extremities or sensation deficits. Patient states he's had a slight headache on and off for the past 3 days he states he does have history of headaches. Patient denies any nausea vomiting or neck pain. Patient states that he could barely drive here secondary to the pain and feels like he would fall when walking, denies stumbling. Additional complaints denied patinet appears well nontoxic on arrival in no acute distress. - Related Data Home Medications Medication Instructions Recorded Confirmed Acetaminophen [Tylenol Extra 1,000 mg PO BID 02/15/19 10/18/20 Strength] Aspirin [Adult Low Dose Aspirin EC] 81 mg PO DAILY 02/15/19 10/18/20 Atorvastatin [Lipitor] 20 mg PO DAILY 02/15/19 10/18/20 Gabapentin [Neurontin] 600 mg PO BID 02/15/19 10/18/20 Montelukast Sodium [Singulair] 10 mg PO DAILY 02/15/19 10/18/20 amLODIPine BESYLATE 10 mg PO DAILY 02/15/19 10/18/20 hydroCHLOROthiazide [Hydrodiuril] 25 mg PO DAILY 02/15/19 10/18/20 metFORMIN HCL [metFORMIN HCL ER] 750 mg PO AC-SUPPER 02/15/19 10/18/20 [place]-3 Fatty Acids/Fish Oil [Fish 1 cap PO DAILY 07/03/19 10/18/20 Oil 1,000 mg Softgel] traMADol HCL 50 mg PO BID 07/03/19 10/18/20 Cyclobenzaprine [Flexeril] 10 mg PO BID 10/18/20 10/18/20 Multivitamins, Thera [Multivitamin 1 tab PO DAILY 10/18/20 10/18/20 (formulary)] Omeprazole 20 mg PO BID 10/18/20 10/18/20 lisinopriL [Zestril] 10 mg PO DAILY 10/18/20 10/18/20 Allergies Allergy/AdvReac Type Severity Reaction Status Date / Time latex Allergy REDNESS Verified 10/18/20 22:48 eye dilating drop AdvReac jaw locked Uncoded 10/18/20 17:57 Review of Systems ROS Statement: Those systems with pertinent positive or pertinent negative responses have been documented in the HPI. ROS Other: All systems not noted in ROS Statement are negative. Past Medical History Past Medical History: Osteoarthritis (OA) Additional Past Medical History / Comment(s): Torn meniscus right knee; Vertigo; Lower back pain History of Any Multi-Drug Resistant Organisms: None Reported Additional Past Surgical History / Comment(s): Varicocele Past Anesthesia/Blood Transfusion Reactions: Family History of Problems w/ Anesthesia Additional Past Anesthesia/Blood Transfusion Reaction / Comment(s): BROTHERS HAD REACTION, UNSURE WHAT. Past Psychological History: No Psychological Hx Reported Smoking Status: Never smoker Past Alcohol Use History: Occasional, Rare Past Drug Use History: None Reported - Past Family History Father Brother(s) Family Medical History: Cancer Sister(s) Family Medical History: Deep Vein Thrombosis (DVT) General Exam - General Exam Comments Initial Comments: General: The patient is awake and alert, in no distress Eye: +3 mm pupils are equal, round and reactive to light, extra-ocular movements are intact. No nystagmus can be reproduced, increased dizziness with head movement from side to side. There is normal conjunctiva bilaterally. No signs of icterus. Ears, nose, mouth and throat: There are moist mucous membranes and no oral lesions. Neck: The neck is supple, there is no tenderness or JVD. Cardiovascular: There is a regular rate and rhythm. No murmur, rub or gallop is appreciated. Respiratory: Lungs are clear to auscultation, respirations are non-labored, breath sounds are equal. No wheezes, stridor, rales, or rhonchi. Gastrointestinal: Soft, non-distended, non-tender abdomen without masses or organomegaly noted. There is no rebound or guarding present. Musculoskeletal: Normal ROM, no tenderness. Strength 5/5. Sensation intact. Pulses equal bilaterally 2+. Neurological: A&O x 3. CN II-XII intact, memory intact to immediately, intermediate and oysterman recall. Able to follow simple verbal. Able to name a common object (pen). High quality, labial (pa) and lingual (la) speech. Low quality posterior pharynx/larynx (ga) voice sounds. Able to express general knowledge (days in a week). No hemineglect or inattention noted. Finger agnosia (-) and spatially oriented (identified L index finger touched R shoulder with L index finger). Light touch and temperature sensation present over the face, chest, abdomen, back, UE bilaterally, and LE bilaterally. Able to localize point during point localization b/l and extinction. No visible bulk atrophy, hypertrophy, fasciculations, or myoclonus of the UE or LE b/l. Full PROM in UE and LE b/l. Bilateral muscle strength 5/5 for the following muscles: deltoid, biceps, triceps, brachioradialis, wrist extensors/flexor, hip flexor, hip abductors/adductors, hamstrings, quadriceps, feet dorsiflexors/plantar flexors. Finger to nose, finger to the examiners finger, and heel to jung coordinated and accurate b/l. Coordinated and even demonstration of hand flip, finger to thumb, and toe tap b/l. Gait is coordinated and even in stride.(-) Romberg. (-) pronator drift. No nuchal rigidity. (-) Brudzinskis and Kernig signs. Skin: Skin is warm and dry and no rashes or lesions are noted. Psychiatric: Cooperative, appropriate mood & affect, normal judgment. Limitations: no limitations Course Vital Signs 10/18/20 10/18/20 10/18/20 17:54 18:57 19:50 Temperature 98.7 F Pulse Rate 111 H 100 Pulse Rate [ Sitting] Pulse Rate [ Standing] Pulse Rate [ Supine] Respiratory 22 18 20 Rate Blood Pressure 121/90 123/80 Blood Pressure [Sitting] Blood Pressure [Standing] Blood Pressure [Supine] O2 Sat by Pulse 97 97 Oximetry 10/18/20 10/18/20 10/18/20 20:18 21:00 23:00 Temperature Pulse Rate 81 Pulse Rate [ 101 H Sitting] Pulse Rate [ 105 H Standing] Pulse Rate [ 102 H Supine] Respiratory 18 16 Rate Blood Pressure 139/80 106/60 Blood Pressure 126/75 [Sitting] Blood Pressure 130/89 [Standing] Blood Pressure 132/74 [Supine] O2 Sat by Pulse 98 98 98 Oximetry 10/18/20 23:26 Temperature Pulse Rate 94 Pulse Rate [ Sitting] Pulse Rate [ Standing] Pulse Rate [ Supine] Respiratory 18 Rate Blood Pressure Blood Pressure [Sitting] Blood Pressure [Standing] Blood Pressure [Supine] O2 Sat by Pulse 98 Oximetry Medical Decision Making - Medical Decision Making Denies presyncope/lgihtheaded. CXR clear. lungs clear. troponin (-). EKG no acute findings. Patient denies chest pain/pressure. admits to hx of vertigo. dizziness increases with head movement. no nystagmus appreciated. pt has no focal neurological deficits. CT brain (-). Patient given benadryl, reglan, meclizine, valium. no relief of dizzines. pt states he feel unsafe driving home nor getting around house as he lives alone. although felt most likely to be peripheral vertigo given hx/exam findings. pt will be admitted for intractable dizziness--further evaluation and monitoring. Attending [place] - Lab Data Result diagrams: 10/18/20 18:43 10/18/20 18:43 Lab Results 10/18/20 10/18/20 10/18/20 Range/Units 18:43 18:43 18:43 WBC 11.1 H (3.8-10.6) k/uL RBC 4.92 (4.30-5.90) m/uL Hgb 13.9 (13.0-17.5) gm/dL Hct 41.7 (39.0-53.0) % MCV 84.7 (80.0-100.0) fL MCH 28.2 (25.0-35.0) pg MCHC 33.2 (31.0-37.0) g/dL RDW 13.6 (11.5-15.5) % Plt Count 280 (150-450) k/uL MPV 7.6 Neutrophils % 77 % Lymphocytes % 16 % Monocytes % 4 % Eosinophils % 1 % Basophils % 0 % Neutrophils # 8.6 H (1.3-7.7) k/uL Lymphocytes # 1.7 (1.0-4.8) k/uL Monocytes # 0.5 (0-1.0) k/uL Eosinophils # 0.1 (0-0.7) k/uL Basophils # 0.1 (0-0.2) k/uL PT 11.2 (9.0-12.0) sec INR 1.1 (<1.2) Sodium 134 L (137-145) mmol/L Potassium 4.6 (3.5-5.1) mmol/L Chloride 96 L (98-107) mmol/L Carbon Dioxide 23 (22-30) mmol/L Anion Gap 15 mmol/L BUN 14 (9-20) mg/dL Creatinine 0.63 L (0.66-1.25) mg/dL Est GFR (CKD-EPI)AfAm >90 (>60 ml/min/1.73 sqM) Est GFR (CKD-EPI)NonAf >90 (>60 ml/min/1.73 sqM) Glucose 176 H (74-99) mg/dL POC Glucose (mg/dL) (75-99) mg/dL POC Glu Weights And Measures Inspector ID Lactic Ac Sepsis Rflx Plasma Lactic Acid Pierre (0.7-2.0) mmol/L Calcium 9.3 (8.4-10.2) mg/dL Total Bilirubin 0.8 (0.2-1.3) mg/dL AST 47 (17-59) U/L ALT 49 (4-49) U/L Alkaline Phosphatase 77 (38-126) U/L Troponin I (0.000-0.034) ng/mL Total Protein 8.0 (6.3-8.2) g/dL Albumin 4.6 (3.5-5.0) g/dL Urine Color Urine Appearance (Clear) Urine pH (5.0-8.0) Ur Specific [place] (1.001-1.035) Urine Protein (Negative) Urine Glucose (UA) (Negative) Urine Ketones (Negative) Urine Blood (Negative) Urine Nitrite (Negative) Urine Bilirubin (Negative) Urine Urobilinogen (<2.0) mg/dL Ur Leukocyte Esterase (Negative) Urine Opiates Screen (NotDetected) Ur Oxycodone Screen (NotDetected) Urine Methadone Screen (NotDetected) Ur Propoxyphene Screen (NotDetected) Ur Barbiturates Screen (NotDetected) U Tricyclic Antidepress (NotDetected) Ur Phencyclidine Scrn (NotDetected) Ur Amphetamines Screen (NotDetected) U Methamphetamines Scrn (NotDetected) U Benzodiazepines Scrn (NotDetected) Urine Cocaine Screen (NotDetected) U Marijuana (THC) Screen (NotDetected) Coronavirus (PCR) (Not Detectd) 10/18/20 10/18/20 10/18/20 Range/Units 18:43 18:43 18:43 WBC (3.8-10.6) k/uL RBC (4.30-5.90) m/uL Hgb (13.0-17.5) gm/dL Hct (39.0-53.0) % MCV (80.0-100.0) fL MCH (25.0-35.0) pg MCHC (31.0-37.0) g/dL RDW (11.5-15.5) % Plt Count (150-450) k/uL MPV Neutrophils % % Lymphocytes % % Monocytes % % Eosinophils % % Basophils % % Neutrophils # (1.3-7.7) k/uL Lymphocytes # (1.0-4.8) k/uL Monocytes # (0-1.0) k/uL Eosinophils # (0-0.7) k/uL Basophils # (0-0.2) k/uL PT (9.0-12.0) sec INR (<1.2) Sodium (137-145) mmol/L Potassium (3.5-5.1) mmol/L Chloride (98-107) mmol/L Carbon Dioxide (22-30) mmol/L Anion Gap mmol/L BUN (9-20) mg/dL Creatinine (0.66-1.25) mg/dL Est GFR (CKD-EPI)AfAm (>60 ml/min/1.73 sqM) Est GFR (CKD-EPI)NonAf (>60 ml/min/1.73 sqM) Glucose (74-99) mg/dL POC Glucose (mg/dL) (75-99) mg/dL POC Glu Weights And Measures Inspector ID Lactic Ac Sepsis Rflx Plasma Lactic Acid Pierre 3.7 H* (0.7-2.0) mmol/L Calcium (8.4-10.2) mg/dL Total Bilirubin (0.2-1.3) mg/dL AST (17-59) U/L ALT (4-49) U/L Alkaline Phosphatase (38-126) U/L Troponin I <0.012 (0.000-0.034) ng/mL Total Protein (6.3-8.2) g/dL Albumin (3.5-5.0) g/dL Urine Color Urine Appearance (Clear) Urine pH (5.0-8.0) Ur Specific [place] (1.001-1.035) Urine Protein (Negative) Urine Glucose (UA) (Negative) Urine Ketones (Negative) Urine Blood (Negative) Urine Nitrite (Negative) Urine Bilirubin (Negative) Urine Urobilinogen (<2.0) mg/dL Ur Leukocyte Esterase (Negative) Urine Opiates Screen (NotDetected) Ur Oxycodone Screen (NotDetected) Urine Methadone Screen (NotDetected) Ur Propoxyphene Screen (NotDetected) Ur Barbiturates Screen (NotDetected) U Tricyclic Antidepress (NotDetected) Ur Phencyclidine Scrn (NotDetected) Ur Amphetamines Screen (NotDetected) U Methamphetamines Scrn (NotDetected) U Benzodiazepines Scrn (NotDetected) Urine Cocaine Screen (NotDetected) U Marijuana (THC) Screen (NotDetected) Coronavirus (PCR) Not Detected (Not Detectd) 10/18/20 10/18/20 10/18/20 Range/Units 18:45 19:12 19:43 WBC (3.8-10.6) k/uL RBC (4.30-5.90) m/uL Hgb (13.0-17.5) gm/dL Hct (39.0-53.0) % MCV (80.0-100.0) fL MCH (25.0-35.0) pg MCHC (31.0-37.0) g/dL RDW (11.5-15.5) % Plt Count (150-450) k/uL MPV Neutrophils % % Lymphocytes % % Monocytes % % Eosinophils % % Basophils % % Neutrophils # (1.3-7.7) k/uL Lymphocytes # (1.0-4.8) k/uL Monocytes # (0-1.0) k/uL Eosinophils # (0-0.7) k/uL Basophils # (0-0.2) k/uL PT (9.0-12.0) sec INR (<1.2) Sodium (137-145) mmol/L Potassium (3.5-5.1) mmol/L Chloride (98-107) mmol/L Carbon Dioxide (22-30) mmol/L Anion Gap mmol/L BUN (9-20) mg/dL Creatinine (0.66-1.25) mg/dL Est GFR (CKD-EPI)AfAm (>60 ml/min/1.73 sqM) Est GFR (CKD-EPI)NonAf (>60 ml/min/1.73 sqM) Glucose (74-99) mg/dL POC Glucose (mg/dL) 190 H (75-99) mg/dL POC Glu Weights And Measures Inspector ID Rogerio Mendieta Lactic Ac Sepsis Rflx Y Plasma Lactic Acid Pierre (0.7-2.0) mmol/L Calcium (8.4-10.2) mg/dL Total Bilirubin (0.2-1.3) mg/dL AST (17-59) U/L ALT (4-49) U/L Alkaline Phosphatase (38-126) U/L Troponin I (0.000-0.034) ng/mL Total Protein (6.3-8.2) g/dL Albumin (3.5-5.0) g/dL Urine Color Yellow Urine Appearance Clear (Clear) Urine pH 6.5 (5.0-8.0) Ur Specific [place] 1.022 (1.001-1.035) Urine Protein Negative (Negative) Urine Glucose (UA) 1+ H (Negative) Urine Ketones Negative (Negative) Urine Blood Negative (Negative) Urine Nitrite Negative (Negative) Urine Bilirubin Negative (Negative) Urine Urobilinogen 2.0 (<2.0) mg/dL Ur Leukocyte Esterase Negative (Negative) Urine Opiates Screen Not Detected (NotDetected) Ur Oxycodone Screen Not Detected (NotDetected) Urine Methadone Screen Not Detected (NotDetected) Ur Propoxyphene Screen Not Detected (NotDetected) Ur Barbiturates Screen Not Detected (NotDetected) U Tricyclic Antidepress Detected H (NotDetected) Ur Phencyclidine Scrn Not Detected (NotDetected) Ur Amphetamines Screen Not Detected (NotDetected) U Methamphetamines Scrn Not Detected (NotDetected) U Benzodiazepines Scrn Not Detected (NotDetected) Urine Cocaine Screen Not Detected (NotDetected) U Marijuana (THC) Screen Not Detected (NotDetected) Coronavirus (PCR) (Not Detectd) 10/18/20 10/18/20 Range/Units 21:42 22:04 WBC (3.8-10.6) k/uL RBC (4.30-5.90) m/uL Hgb (13.0-17.5) gm/dL Hct (39.0-53.0) % MCV (80.0-100.0) fL MCH (25.0-35.0) pg MCHC (31.0-37.0) g/dL RDW (11.5-15.5) % Plt Count (150-450) k/uL MPV Neutrophils % % Lymphocytes % % Monocytes % % Eosinophils % % Basophils % % Neutrophils # (1.3-7.7) k/uL Lymphocytes # (1.0-4.8) k/uL Monocytes # (0-1.0) k/uL Eosinophils # (0-0.7) k/uL Basophils # (0-0.2) k/uL PT (9.0-12.0) sec INR (<1.2) Sodium (137-145) mmol/L Potassium (3.5-5.1) mmol/L Chloride (98-107) mmol/L Carbon Dioxide (22-30) mmol/L Anion Gap mmol/L BUN (9-20) mg/dL Creatinine (0.66-1.25) mg/dL Est GFR (CKD-EPI)AfAm (>60 ml/min/1.73 sqM) Est GFR (CKD-EPI)NonAf (>60 ml/min/1.73 sqM) Glucose (74-99) mg/dL POC Glucose (mg/dL) (75-99) mg/dL POC Glu Weights And Measures Inspector ID Lactic Ac Sepsis Rflx Y Plasma Lactic Acid Pierre 3.0 H* (0.7-2.0) mmol/L Calcium (8.4-10.2) mg/dL Total Bilirubin (0.2-1.3) mg/dL AST (17-59) U/L ALT (4-49) U/L Alkaline Phosphatase (38-126) U/L Troponin I (0.000-0.034) ng/mL Total Protein (6.3-8.2) g/dL Albumin (3.5-5.0) g/dL Urine Color Urine Appearance (Clear) Urine pH (5.0-8.0) Ur Specific [place] (1.001-1.035) Urine Protein (Negative) Urine Glucose (UA) (Negative) Urine Ketones (Negative) Urine Blood (Negative) Urine Nitrite (Negative) Urine Bilirubin (Negative) Urine Urobilinogen (<2.0) mg/dL Ur Leukocyte Esterase (Negative) Urine Opiates Screen (NotDetected) Ur Oxycodone Screen (NotDetected) Urine Methadone Screen (NotDetected) Ur Propoxyphene Screen (NotDetected) Ur Barbiturates Screen (NotDetected) U Tricyclic Antidepress (NotDetected) Ur Phencyclidine Scrn (NotDetected) Ur Amphetamines Screen (NotDetected) U Methamphetamines Scrn (NotDetected) U Benzodiazepines Scrn (NotDetected) Urine Cocaine Screen (NotDetected) U Marijuana (THC) Screen (NotDetected) Coronavirus (PCR) (Not Detectd) Disposition Clinical Impression: Dizziness Disposition: ADMITTED IP TO THIS [facility] Condition: Stable Is patient prescribed a controlled substance at d/c from ED?: No Time of Disposition: 22:32 Decision to Admit Reason: Admit from EC Decision Date: 10/18/20 Decision Time: 22:32
--- NOTE | 2020-10-18 19:22 | CT ---
EXAMINATION TYPE: CT brain wo con DATE OF EXAM: 10/18/2020 COMPARISON: None HISTORY: dizziness CT DLP: 1253.4 mGycm Automated exposure control for dose reduction was used. Ventricles have normal size. There is no mass effect nor midline shift. There is no evidence of intra cranial hemorrhage. Calvarium is intact. Skull base is intact. There is normal aeration of the mastoi d sinuses. There is some debris in the right external auditory canal. IMPRESSION: Negative CT scan of the brain.
--- NOTE | 2020-10-18 19:23 | XR ---
EXAMINATION TYPE: XR chest 2V DATE OF EXAM: 10/18/2020 COMPARISON: 02/15/2019 HISTORY: Dizziness TECHNIQUE: FINDINGS: There is no heart failure nor confluent pneumonic infiltrate. Costophrenic angles are clear . There are no hilar masses. There are chest leads. Bony thorax is intact. There is some spurring in the thoracic spine. IMPRESSION: No active cardiopulmonary disease. No change.
[2020-10-18 20:02] LABS: Appearance,Urine Clear (Clear); Bilirubin,Urine Negative (Negative); Blood,Urine Negative (Negative); Color,Urine Yellow; Glucose,Urine (UA) 1+ (Negative); Ketones,Urine Negative (Negative); Leukocyte Esterase,Urine Negative (Negative); Nitrite,Urine Negative (Negative); PH, Urine 6.5 (5.0-8.0); Protein,Urine Negative (Negative); Specific Gravity,Urine 1.022 (1.001-1.035)
[2020-10-18 20:16] LABS: Amphetamine Screen,Urine Not Detected (NotDetected); Barbiturate Screen,Urine Not Detected (NotDetected); Benzodiazepines Screen,Urine Not Detected (NotDetected); Cocaine Screen,Urine Not Detected (NotDetected); Methadone Screen, Urine Not Detected (NotDetected); Opiate Screen,Urine Not Detected (NotDetected); Oxycodone Screen, Urine Not Detected (NotDetected); Phencyclidine Screen,Urine Not Detected (NotDetected); Tricyclic Antidepressant,Urine Detected (NotDetected); Urn Cannabinoid Scrn Not Detected (NotDetected)
[2020-10-18] MEDS ORDERED: diphenhydrAMINE 50 MG/ML 1 ML VIAL IVP STA (20:46)
[2020-10-18] MEDS ORDERED: METOCLOPRAMIDE 5 MG/ML 2 ML VIAL IVP STA (20:46)
[2020-10-18] MEDS: SODIUM CHLORIDE 0.9% 1,000 ML IV SCH (21:15)
[2020-10-18] MEDS ORDERED: DIAZEPAM 5 MG/ML 2 ML INJ IVP STA (21:36)
[2020-10-18] MEDS ORDERED: NALOXONE 0.4 MG/ML 1 ML VIAL IV PRN (22:30)
[2020-10-19 00:02] VITALS: RESP 20
[2020-10-19] MEDS: SODIUM CHLORIDE 0.9% 1,000 ML IV SCH (04:25)
[2020-10-19 06:45] LABS: Glucose,Whole Blood 153 mg/dL (75-99)
[2020-10-19 08:39] VITALS: BP 146/79; PULSE 87; TEMP 97.9
[2020-10-19] MEDS ORDERED: lisinopriL 10 MG TAB PO SCH (09:00)
[2020-10-19] MEDS ORDERED: ACETAMINOPHEN TAB 500 MG TAB PO SCH (09:00)
[2020-10-19] MEDS ORDERED: ATORVASTATIN 20 MG TAB PO SCH (09:00)
[2020-10-19] MEDS ORDERED: traMADol 50 MG TAB PO SCH (09:00)
[2020-10-19] MEDS ORDERED: MONTELUKAST 10 MG TAB PO SCH (09:00)
[2020-10-19] MEDS ORDERED: PANTOPRAZOLE 40 MG TABLET PO SCH (09:00)
[2020-10-19] MEDS ORDERED: CYCLOBENZAPRINE 10 MG TAB PO SCH (09:00)
[2020-10-19] MEDS ORDERED: GABAPENTIN 300 MG CAP PO SCH (09:00)
[2020-10-19] MEDS ORDERED: amLODIPine 10 MG TAB PO SCH (09:00)
[2020-10-19] MEDS ORDERED: ASPIRIN 81 MG PO SCH (09:00)
[2020-10-19] MEDS ORDERED: BACLOFEN 10 MG TAB PO SCH (09:00)
--- NOTE | 2020-10-19 10:47 | P.CNNES ---
History of Present Illness Consult date: 10/19/20 Requesting physician: Savita Velazco Reason for Consult: dizziness History of Present Illness: This is a 60-year-old gentleman with medical history of vertigo, lower back pain, osteoarthritis and borderline diabetes (controlled with diet) that presented to the emergency department on her 10/18/2020 for dizziness. Patient stated that the when he was in his kitchen yesterday at around 11:30am and was on his feet then went to turn his head then all the sudden felt the room was spining around him. He denies nausea, vomitting, ringing of the ears, hearing loss, focal weakness, numbness or difficulty getting his words out or difficulty swallowing. He felt when he rested and not moved the symptoms improved. As a result he decided to come to the hospital. He felt his symptoms has resolved close to 9pm yesterday and he feels he is back to baseline. Of note the patient had the history of vertigo about 15 years ago. Also the patient was the evaluated by orthopedic surgery team(Dr. Medina) and I saw an operative note on 02/25/[address] Medina pain and his preoperative and operative diagnosis is severe spinal stenosis L2-L3 and L3-L4, neurogenic claudication of the bilateral lower extremity, lower extremity radiculopathy, lower back pain, degenerative disc disease. She had laminectomy and decompression of L2-L3 and L3-L4. He continues to have chronic lower back pain that radiates down either right or left lower extremity and feels it is a shooting pain. He walks with wheeled walker or scooter because of the pain. He said he has limited walking time because of pain. Patient on home medication of baclofen 40 mg 1 tablet twice a day, Flexeril 10 mg 1 tablet twice a day and gabapentin 600 mg 1 tablet twice a day. Workup in the hospital consisted of: CT of the head is reported as negative CT scan of the brain. EKG is reported as sinus tachycardia, right bundle branch block. Abnormal EKG. On presentation the white blood cell is 11.1 and the neutrophils is 8.6. Sodium is 134. Initial serum glucose was 176. Initial plasma lactic acid the vein is 3.7 and is elevated in the repeat his 3.0. AST is 47 and ALTs 49. The troponins less than 0.012. Review of Systems Review of system: The 12 point system was reviewed and apparent positive and negative per HPI. Past Medical History Past Medical History: Osteoarthritis (OA) Additional Past Medical History / Comment(s): Torn meniscus right knee; Vertigo; Lower back pain. Pre-diabetic History of Any Multi-Drug Resistant Organisms: None Reported Additional Past Surgical History / Comment(s): Varicocele Past Anesthesia/Blood Transfusion Reactions: Family History of Problems w/ Anesthesia Additional Past Anesthesia/Blood Transfusion Reaction / Comment(s): BROTHERS HAD REACTION, UNSURE WHAT. Past Psychological History: No Psychological Hx Reported Smoking Status: Never smoker Past Alcohol Use History: Occasional, Rare Additional Past Alcohol Use History / Comment(s): SMOKED AGE 17 FOR 3 MONTHS. Past Drug Use History: None Reported - Past Family History Father Brother(s) Family Medical History: Cancer Sister(s) Family Medical History: Deep Vein Thrombosis (DVT) Medications and Allergies Home Medications Medication Instructions Recorded Confirmed Type Acetaminophen [Tylenol Extra 1,000 mg PO BID 02/15/19 10/18/20 History Strength] Aspirin [Adult Low Dose Aspirin EC] 81 mg PO DAILY 02/15/19 10/18/20 History Atorvastatin [Lipitor] 20 mg PO DAILY 02/15/19 10/18/20 History Gabapentin [Neurontin] 600 mg PO BID 02/15/19 10/18/20 History Montelukast Sodium [Singulair] 10 mg PO DAILY 02/15/19 10/18/20 History amLODIPine BESYLATE 10 mg PO DAILY 02/15/19 10/18/20 History hydroCHLOROthiazide [Hydrodiuril] 25 mg PO DAILY 02/15/19 10/18/20 History metFORMIN HCL [metFORMIN HCL ER] 750 mg PO AC-SUPPER 02/15/19 10/18/20 History [place]-3 Fatty Acids/Fish Oil [Fish 1 cap PO DAILY 07/03/19 10/18/20 History Oil 1,000 mg Softgel] traMADol HCL 50 mg PO BID 07/03/19 10/18/20 History Cyclobenzaprine [Flexeril] 10 mg PO BID 10/18/20 10/18/20 History Multivitamins, Thera [Multivitamin 1 tab PO DAILY 10/18/20 10/18/20 History (formulary)] Omeprazole 20 mg PO BID 10/18/20 10/18/20 History lisinopriL [Zestril] 10 mg PO DAILY 10/18/20 10/18/20 History Allergies Allergy/AdvReac Type Severity Reaction Status Date / Time latex Allergy REDNESS Verified 10/18/20 22:48 eye dilating drop AdvReac jaw locked Uncoded 10/18/20 17:57 Physical Examination - Vital Signs Vital Signs: Vital Signs Temp Pulse Pulse Pulse Pulse Resp BP 10/19/20 08:00 97.9 F 87 20 10/19/20 01:24 97.7 F 90 20 10/18/20 23:57 98 F 96 20 10/18/20 23:26 94 18 10/18/20 23:00 81 16 106/60 10/18/20 21:00 139/80 10/18/20 20:18 101 H 105 H 102 H 18 10/18/20 19:50 100 20 123/80 10/18/20 18:57 18 10/18/20 17:54 98.7 F 111 H 22 121/90 BP BP BP Pulse Ox 10/19/20 08:00 146/79 95 10/19/20 01:24 150/74 95 10/18/20 23:57 145/67 94 L 10/18/20 23:26 98 10/18/20 23:00 98 10/18/20 21:00 98 10/18/20 20:18 126/75 130/89 132/74 98 10/18/20 19:50 97 10/18/20 18:57 10/18/20 17:54 97 Intake and Output 10/18/20 10/19/20 10/19/20 22:59 06:59 14:59 Intake Total 780 Balance 780 Intake: Intake, IV Titration 780 Amount Sodium Chloride 0.9% 1, 780 000 ml @ 130 mls/hr IV . Q7H42M [facility] Rx#:[id number] Other: # Voids 4 1 Weight 155.129 kg 155.129 kg GENERAL: The patient is a morbid obese gentleman that is sitting in a chair is not in acute distress. CHEST: The heart rate is regular rate rhythm. No murmurs to auscultation. LUNG: Clear to auscultation bilaterally no wheezing noted throughout. Not labored breathing. ABDOMEN/GI: Bowel sounds present in all 4 quadrants. No tenderness to palpation throughout. NEUROLOGICAL: Higher mental function: The patient is awake, alert, oriented to self, place and time. Patient is following commands. No aphasia and no neglect. Cranial nerves: The pupils are round, equal and reactive to light and accommodation. Visual munoz are full to confrontation throughout. Extraocular movement is intact no nystagmus is noted. Facial sensation is normal to touch throughout. The facial strength is normal throughout. Hearing is normal bilaterally to hand rub. Tongue is midline and moved [id number] without any difficulty. No dysarthria is noted. Shoulder shrug is normal bilaterally. Motor: Gait is normal with normal arms swing but only took feet steps because of pain. The strength is 5 over 5 throughout. Normal tone and bulk. Cerebellum: Normal finger to nose bilaterally. Sensation: Sensation is normal to touch throughout. Reflexes (right/left): 2+ in bilateral upper extremities while 1+ in bilateral lower extremities. Plantars are downgoing bilaterally. Results Urinalysis is negative for urinary tract infection. Coagulation study: PT of 11.2 and INR is 1.1. Urine drug screen is positive for tricyclic antidepressant. Coronavirus PCR: Negative. - Laboratory Findings CBC and BMP: 10/18/20 18:43 10/18/20 18:43 Abnormal Lab Findings: Abnormal Labs 10/18/20 10/18/20 10/18/20 18:43 18:43 18:43 WBC 11.1 H Neutrophils # 8.6 H Sodium 134 L Chloride 96 L Creatinine 0.63 L Glucose 176 H POC Glucose (mg/dL) Plasma Lactic Acid Pierre 3.7 H* Urine Glucose (UA) U Tricyclic Antidepress 10/18/20 10/18/20 10/18/20 18:45 19:43 21:42 WBC Neutrophils # Sodium Chloride Creatinine Glucose POC Glucose (mg/dL) 190 H Plasma Lactic Acid Pierre 3.0 H* Urine Glucose (UA) 1+ H U Tricyclic Antidepress Detected H 10/19/20 10/19/20 10/19/20 00:23 04:15 06:43 WBC Neutrophils # Sodium Chloride Creatinine Glucose POC Glucose (mg/dL) 153 H Plasma Lactic Acid Pierre 2.8 H* 2.6 H* Urine Glucose (UA) U Tricyclic Antidepress Assessment and Plan Assessment: This is a 60-year-old gentleman that presented with acute dizziness with movement. Acute vertigo--seems peripheral (and has resolved) History of radiculopathy of the bilateral lower extremities History severe spondylosis (L2/L3 L3/L4) s/p laminectomy 02/2019 Chronic lower back pain Pre-diabetes Hypertension Morbid Obese Plan: The patient was given the meclizine 25 mg once in the ED. The patient dizziness has resolved. There is no imaging needed since that does not seem to be any central vertigo. This seems likely a peripheral vertigo. Recommend given patient meclizine 12.5 mg 1 tablet 3 times a day when necessary. If patient continues to have vertigo then we can pursue with MRI the brain for now no further workup is needed. The patient was continued on aspirin 81 mg 1 dose and the Lipitor 20 mg daily. Patient was restarted on the home medication of baclofen 40 mg 1 tablet twice a day, Flexeril 10 mg 1 tablet twice a day and gabapentin 600 mg 1 tablet twice a day. The patient was notified that that he needs to follow-up with a neurologist within 2-3 weeks as well as orthopedic surgeon as an outpatient. We'll defer the rest of the medical management to the primary team. As stated above no further neurological workup is needed at this time. Thank you for the consultation. Ike Walters M.D. Neuro-hospitalist Time with Patient: Greater than 30
[2020-10-19 11:56] LABS: Glucose,Whole Blood 189 mg/dL (75-99)
--- NOTE | 2020-10-19 14:23 | P.HPIM ---
History of Present Illness H&P Date: 10/19/20 HISTORY AND PHYSICAL AND DISCHARGE SUMMARY: HISTORY OF PRESENT ILLNESS This is a 60-year-old male patient of Dr. Segura with past medical history of diabetes mellitus type 2, hypertension, diabetic neuropathy, hyperlipidemia, gastroesophageal reflux disease. Patient gives history that he was standing at the kitchen sink and all of a sudden noticed he was sweating profusely. He turned around and the room wasn't spinning and he had to kneel down on the ground until he could get his bearings. He states he drove himself here 25 miles an hour. He continued to have dizziness. He states he felt feverish. No chest pain, no cough or tightness in his chest. He denies having any weakness, slurred speech. Patient came into [facility] emergency center. EKG was sinus tachycardia with right bundle branch block, CAT scan of the brain was negative. Blood sugar 176. Initial lactic acid 3.7 with repeat down to 2.6. Troponin 0 .012. Dana BC 11.1, hemoglobin 13.9. Electrolytes unremarkable, creatinine 0.63. Urinalysis 1+ glucose otherwise no sign of infection. Urine drug screen positive for tricyclic antidepressants. Coronavirus PCR not detected area patient was placed on the observation unit and consult obtained from neurology. Patient was seen by Dr. Walters with recommendations for meclizine 12.5 mg 3 times daily as necessary. If patient continues to have vertigo, recommended MRI of the brain for now no further workup as needed. Also recommended follow-up with neurology in 2-3 weeks. At the time of evaluation, patient denies having any dizziness or sweats. Patient will be discharged home today in stable condition. REVIEW OF SYSTEMS Constitutional: No fever, no chills, no night sweats. No weight change. No weakness, fatigue or lethargy. No daytime sleepiness. EENT: No headache. No blurred vision or double vision, no loss of vision. No loss of Hearing, no ringing in the ears, reports dizziness. No nasal drainage or congestion. No epistaxis. No sore throat. Lungs: No shortness of breath, cough, no sputum production. No wheezing. Cardiovascular: No chest pain, no lower extremity edema. No palpitations. No paroxysmal nocturnal dyspnea. No orthopnea. Reports dizziness. No syncopal episodes. Abdominal: No abdominal pain. No nausea, vomiting. No diarrhea. No constipation. No bloody or tarry stools.. No loss of appetite. Genitourinary: No dysuria, increased frequency, urgency. No urinary retention. Musculoskeletal: No myalgias. No muscle weakness, no gait dysfunction, no frequent falls. No back pain. No neck pain. Integumentary: No wounds, no lesions. No rash or pruritus. No unusual bruising. No change in hair or nails. Neurologic: No aphasia. No facial droop. No change in mentation. No head injury. No headache. No paralysis. No paresthesia. Psychiatric: No depression. No anxiety. No mood swings. Endocrine: No abnormal blood sugars. No weight change. No excessive sweating or thirst. No cold intolerance. SOCIAL HISTORY Patient is a lifelong nonsmoker. He denies any marijuana a couple or illicit drug use. He is a . He does not have a CPAP, nebulizer, oxygen. FAMILY HISTORY Mother at age 87 from COPD. Father at age 67 from COPD and CVA. Patient has a total of 5 brothers with no major medical problems. Patient has 3 sisters and one from suicide. Patient has one adopted son and one biological daughter with no major medical problems. PHYSICAL EXAMINATION Gen: This is a 60-year-old male. He is resting but appears to be comfortable and in no acute distress. HEENT: Head is atraumatic, normocephalic. Pupils equal, round. Sclerae is anicteric. NECK: Supple. No JVD. No lymphadenopathy. No thyromegaly. LUNGS: Clear to auscultation. No wheezes or rhonchi. No intercostal retractions. HEART: Regular rate and rhythm. No murmur. ABDOMEN: Soft. Bowel sounds are present. No masses. No tenderness. EXTREMITIES: No pedal edema. No calf tenderness. NEUROLOGICAL: Patient is awake, alert and oriented x3. Cranial nerves 2 through 12 are grossly intact. ASSESSMENT AND PLAN 1. Acute vertigo, resolved. Patient has been seen by neurology, recommend meclizine 12.5 mg 3 times daily as needed. No further workup. Recommended follow-up with neurology in 2-3 weeks. 2. Diabetes mellitus type 2. Continue metformin. 3. Hypertension. Continue hydrochlorothiazide, amlodipine, lisinopril. 4. Hyperlipidemia. Continue Lipitor. 5. Diabetic neuropathy. Continue gabapentin. Patient placed as observation status. DISCHARGE PLAN Home. Discharge Medication List Acetaminophen [Tylenol Extra Strength] 1,000 mg PO BID 02/15/19 [History] Aspirin [Adult Low Dose Aspirin EC] 81 mg PO DAILY 02/15/19 [History] Atorvastatin [Lipitor] 20 mg PO DAILY 02/15/19 [History] Gabapentin [Neurontin] 600 mg PO BID 02/15/19 [History] Montelukast Sodium [Singulair] 10 mg PO DAILY 02/15/19 [History] amLODIPine BESYLATE 10 mg PO DAILY 02/15/19 [History] hydroCHLOROthiazide [Hydrodiuril] 25 mg PO DAILY 02/15/19 [History] metFORMIN HCL [metFORMIN HCL ER] 750 mg PO AC-SUPPER 02/15/19 [History] [place]-3 Fatty Acids/Fish Oil [Fish Oil 1,000 mg Softgel] 1 cap PO DAILY 07/03/19 [History] traMADol HCL 50 mg PO BID 07/03/19 [History] Cyclobenzaprine [Flexeril] 10 mg PO BID 10/18/20 [History] Multivitamins, Thera [Multivitamin (formulary)] 1 tab PO DAILY 10/18/20 [History] Omeprazole 20 mg PO BID 10/18/20 [History] lisinopriL [Zestril] 10 mg PO DAILY 10/18/20 [History] Meclizine [Antivert] 12.5 mg PO Q8HR PRN #60 tablet 10/19/20 [Rx] Impression and plan of care have been directed as dictated by the signing physician. Deidra Calvin nurse practitioner acting as scribe for signing physician. Past Medical History Past Medical History: Osteoarthritis (OA) Additional Past Medical History / Comment(s): Torn meniscus right knee; Vertigo; Lower back pain. Pre-diabetic History of Any Multi-Drug Resistant Organisms: None Reported Additional Past Surgical History / Comment(s): Varicocele Past Anesthesia/Blood Transfusion Reactions: Family History of Problems w/ Anesthesia Additional Past Anesthesia/Blood Transfusion Reaction / Comment(s): BROTHERS HAD REACTION, UNSURE WHAT. Past Psychological History: No Psychological Hx Reported Smoking Status: Never smoker Past Alcohol Use History: Occasional, Rare Additional Past Alcohol Use History / Comment(s): SMOKED AGE 17 FOR 3 MONTHS. Past Drug Use History: None Reported - Past Family History Father Brother(s) Family Medical History: Cancer Sister(s) Family Medical History: Deep Vein Thrombosis (DVT) Medications and Allergies Home Medications Medication Instructions Recorded Confirmed Type Acetaminophen [Tylenol Extra 1,000 mg PO BID 02/15/19 10/18/20 History Strength] Aspirin [Adult Low Dose Aspirin EC] 81 mg PO DAILY 02/15/19 10/18/20 History Atorvastatin [Lipitor] 20 mg PO DAILY 02/15/19 10/18/20 History Gabapentin [Neurontin] 600 mg PO BID 02/15/19 10/18/20 History Montelukast Sodium [Singulair] 10 mg PO DAILY 02/15/19 10/18/20 History amLODIPine BESYLATE 10 mg PO DAILY 02/15/19 10/18/20 History hydroCHLOROthiazide [Hydrodiuril] 25 mg PO DAILY 02/15/19 10/18/20 History metFORMIN HCL [metFORMIN HCL ER] 750 mg PO AC-SUPPER 02/15/19 10/18/20 History [place]-3 Fatty Acids/Fish Oil [Fish 1 cap PO DAILY 07/03/19 10/18/20 History Oil 1,000 mg Softgel] traMADol HCL 50 mg PO BID 07/03/19 10/18/20 History Cyclobenzaprine [Flexeril] 10 mg PO BID 10/18/20 10/18/20 History Multivitamins, Thera [Multivitamin 1 tab PO DAILY 10/18/20 10/18/20 History (formulary)] Omeprazole 20 mg PO BID 10/18/20 10/18/20 History lisinopriL [Zestril] 10 mg PO DAILY 10/18/20 10/18/20 History Meclizine [Antivert] 12.5 mg PO Q8HR PRN #60 tablet 10/19/20 Rx Allergies Allergy/AdvReac Type Severity Reaction Status Date / Time latex Allergy REDNESS Verified 10/18/20 22:48 eye dilating drop AdvReac jaw locked Uncoded 10/18/20 17:57 Physical Exam Vitals: Vital Signs Temp Pulse Pulse Pulse Pulse Resp BP 10/19/20 01:24 97.7 F 90 10/18/20 23:57 98 F 96 10/18/20 23:26 94 18 10/18/20 23:00 81 16 106/60 10/18/20 21:00 139/80 10/18/20 20:18 101 H 105 H 102 H 18 10/18/20 19:50 100 20 123/80 10/18/20 18:57 18 10/18/20 17:54 98.7 F 111 H 22 121/90 BP BP BP Pulse Ox 10/19/20 01:24 150/74 95 10/18/20 23:57 145/67 94 L 10/18/20 23:26 98 10/18/20 23:00 98 10/18/20 21:00 98 10/18/20 20:18 126/75 130/89 132/74 98 10/18/20 19:50 97 10/18/20 18:57 10/18/20 17:54 97 Intake and Output 10/18/20 10/19/20 10/19/20 22:59 06:59 14:59 Intake Total 780 Balance 780 Intake: Intake, IV Titration 780 Amount Sodium Chloride 0.9% 1, 780 000 ml @ 130 mls/hr IV . Q7H42M [facility] Rx#:[id number] Other: # Voids 4 Weight 155.129 kg 155.129 kg Results CBC & Chem 7: 10/18/20 18:43 10/18/20 18:43 Labs: Abnormal Lab Results - Last 24 Hours (Table) 10/18/20 10/18/20 10/18/20 Range/Units 18:43 18:43 18:43 WBC 11.1 H (3.8-10.6) k/uL Neutrophils # 8.6 H (1.3-7.7) k/uL Sodium 134 L (137-145) mmol/L Chloride 96 L (98-107) mmol/L Creatinine 0.63 L (0.66-1.25) mg/dL Glucose 176 H (74-99) mg/dL POC Glucose (mg/dL) (75-99) mg/dL Plasma Lactic Acid Pierre 3.7 H* (0.7-2.0) mmol/L Urine Glucose (UA) (Negative) U Tricyclic Antidepress (NotDetected) 10/18/20 10/18/20 10/18/20 Range/Units 18:45 19:43 21:42 WBC (3.8-10.6) k/uL Neutrophils # (1.3-7.7) k/uL Sodium (137-145) mmol/L Chloride (98-107) mmol/L Creatinine (0.66-1.25) mg/dL Glucose (74-99) mg/dL POC Glucose (mg/dL) 190 H (75-99) mg/dL Plasma Lactic Acid Pierre 3.0 H* (0.7-2.0) mmol/L Urine Glucose (UA) 1+ H (Negative) U Tricyclic Antidepress Detected H (NotDetected) 10/19/20 10/19/20 10/19/20 Range/Units 00:23 04:15 06:43 WBC (3.8-10.6) k/uL Neutrophils # (1.3-7.7) k/uL Sodium (137-145) mmol/L Chloride (98-107) mmol/L Creatinine (0.66-1.25) mg/dL Glucose (74-99) mg/dL POC Glucose (mg/dL) 153 H (75-99) mg/dL Plasma Lactic Acid Pierre 2.8 H* 2.6 H* (0.7-2.0) mmol/L Urine Glucose (UA) (Negative) U Tricyclic Antidepress (NotDetected)
[2020-10-19] MEDS ORDERED: metFORMIN 500 MG TAB PO SCH (21:00)
== END 2020-10-19 14:25 | disposition home or self-care (01) ==
LOC: EC 17:53 → 6NMEDSUR 23:05
PROVIDERS: ADMIT Internal Medicine Geriatric Medicine; ATTEND Internal Medicine Geriatric Medicine
DX: R42 Dizziness and giddiness (principal); I10 Essential (primary) hypertension; E11.40 Type 2 diabetes mellitus with diabetic neuropathy, unspecified; E78.5 Hyperlipidemia, unspecified; K21.9 Gastro-esophageal reflux disease without esophagitis; R61 Generalized hyperhidrosis; M19.90 Unspecified osteoarthritis, unspecified site; M54.5 Low back pain; Z91.048 Other nonmedicinal substance allergy status; G89.29 Other chronic pain; M51.16 Intervertebral disc disorders with radiculopathy, lumbar region; I45.10 Unspecified right bundle-branch block; R00.0 Tachycardia, unspecified; Z87.891 Personal history of nicotine dependence; E66.01 Morbid (severe) obesity due to excess calories; Z68.43 Body mass index [BMI] 50.0-59.9, adult; Z20.822 Contact with and (suspected) exposure to COVID-19; M47.816 Spondylosis without myelopathy or radiculopathy, lumbar region; R51.9 Headache, unspecified; M48.061 Spinal stenosis, lumbar region without neurogenic claudication; Z79.899 Other long term (current) drug therapy; Z79.82 Long term (current) use of aspirin; Z79.84 Long term (current) use of oral hypoglycemic drugs; Z91.040 Latex allergy status; Z82.3 Family history of stroke; Z82.5 Family history of asthma and other chronic lower respiratory diseases; Z81.8 Family history of other mental and behavioral disorders; Z80.9 Family history of malignant neoplasm, unspecified; Z82.49 Family history of ischemic heart disease and other diseases of the circulatory system; Z84.89 Family history of other specified conditions
CPT/HCPCS: 96361; 96374; 96375; 99285; 36415; 93005; 80053; 83605 ×2; 84484; 85025; 85610; 81003; 80306; 87635; 71046; 70450; G0378 ×2; J1200; J2765; J3360

== ENCOUNTER 2021-04-28 13:42 | Emergency (ER) | payer OTHER ==
[2021-04-28] MEDS ORDERED: ASPIRIN 81 MG PO STA (13:58)
[2021-04-28] MEDS ORDERED: MORPHINE SULFATE 4 MG/ML SYRINGE IVP STA ×2 (14:16→15:28)
[2021-04-28] MEDS ORDERED: diphenhydrAMINE 50 MG/ML 1 ML VIAL IVP STA (14:17)
[2021-04-28] MEDS ORDERED: SODIUM CHLORIDE 0.9% 1,000 ML IV ONE (14:17)
[2021-04-28] MEDS ORDERED: FAMOTIDINE 20 MG/2 ML VIAL IV STA (14:17)
[2021-04-28] MEDS ORDERED: ONDANSETRON 4 MG/2 ML VIAL IVP STA (14:17)
[2021-04-28 14:29] LABS: Basophils # (A) 0.1 k/uL (0-0.2); Basophils % (A) 1 %; Eosinophils # (A) 0.2 k/uL (0-0.7); Eosinophils % (A) 2 %; HCT 44.1 % (39.0-53.0); HGB 14.3 gm/dL (13.0-17.5); Lymphocytes # (A) 2.1 k/uL (1.0-4.8); Lymphocytes % (A) 21 %; MCH 28.3 pg (25.0-35.0); MCHC 32.3 g/dL (31.0-37.0); MCV 87.4 fL (80.0-100.0); Mean Platelet Volume 8.5; Monocytes # (A) 0.5 k/uL (0-1.0); Monocytes % (A) 5 %; Neutrophils # (A) 7.2 k/uL (1.3-7.7); Neutrophils % (A) 71 %; Platelet Count 292 k/uL (150-450); RBC 5.05 m/uL (4.30-5.90); RDW 14.5 % (11.5-15.5); WBC 10.2 k/uL (3.8-10.6)
[2021-04-28 14:38] LABS: ALT 41 U/L (4-49); AST 42 U/L (17-59); African American GFR (CKD) >90 (>60 ml/min/1.73 sqM); Albumin 4.9 g/dL (3.5-5.0); Alkaline Phosphatase 89 U/L (38-126); Anion Gap 16 mmol/L; Blood Urea Nitrogen 11 mg/dL (9-20); Calcium 9.8 mg/dL (8.4-10.2); Carbon Dioxide 24 mmol/L (22-30); Chloride 96 mmol/L (98-107); Glucose 201 mg/dL (74-99); Magnesium 1.8 mg/dL (1.6-2.3); Non-African American GFR(CKD) >90 (>60 ml/min/1.73 sqM); Potassium 3.8 mmol/L (3.5-5.1); Sodium 136 mmol/L (137-145); Total Bilirubin 0.6 mg/dL (0.2-1.3)
[2021-04-28 14:56] LABS: Prothrombin Time 10.8 sec (9.0-12.0)
[2021-04-28 15:00] LABS: Partial Thromboplastin Time 17.8 sec (22.0-30.0)
--- NOTE | 2021-04-28 15:14 | XR ---
EXAMINATION TYPE: XR chest 2V DATE OF EXAM: 04/28/2021 COMPARISON: 10/18/2020 INDICATION: Chest pain TECHNIQUE: Frontal and lateral views of the chest are obtained. FINDINGS: The heart size is probably prominent. The pulmonary vasculature is normal. The lungs are clear. IMPRESSION: 1. No acute pulmonary process. 2. Mild cardiomegaly.
[2021-04-28] MEDS ORDERED: KETOROLAC 15 MG/ML 1 ML VIAL IVP STA (15:28)
[2021-04-28] MEDS ORDERED: LIDOCAINE 5% PATCH TOPICAL STA (15:28)
--- NOTE | 2021-04-28 15:52 | CT ---
EXAMINATION TYPE: CT abdomen pelvis w con DATE OF EXAM: 04/28/2021 COMPARISON: None HISTORY: Abdominal pain and diarrhea. CT DLP: 3461.4 mGycm Automated exposure control for dose reduction was used. CONTRAST: CT scan of the abdomen pelvis is performed with IV Contrast, patient injected with 100 mL of Isovue 3 00. FINDINGS- LUNG BASES- No significant abnormality is appreciated. LIVER/GB-liver reduced attenuation correlate for fatty infiltration. Focal area of fatty sparing near the gallbladder fossa noted.. PANCREAS- No gross abnormality is seen. SPLEEN- No gross abnormality is seen. Accessory spleen incidentally noted. ADRENALS- No gross abnormality is seen. KIDNEYS/BLADDER- no hydronephrosis or nephrolithiasis. Bilateral parapelvic renal simple cysts are no claudio.. BOWEL-nonspecific abdominal gas pattern with no evidence of obstruction. Normal appendix. LYMPH NODES- No greater than 1cm abdominal or pelvic lymph nodes areappreciated. OSSEOUS STRUCTURES-hypertrophic and degenerative changes of the spine. Postsurgical changes involving the vertebral column. OTHER- aorta of normal caliber. There is mild posterior bladder wall thickening. Correlate with urin alysis. Small fat-containing periumbilical hernia IMPRESSION- 1. Correlate for hepatic steatosis. 2. Nonspecific gas pattern with no evidence of obstruction or inflammatory change. 3. A suggestion bladder wall thickening correlate for cystitis. Within the posterior margin the bladd er there is an area of increased density which could be artifactual correlate with urinalysis to excl ude hematuria or infectious etiology.
--- NOTE | 2021-04-28 17:08 | ED ---
General Adult HPI - General Chief complaint: Chest Pain Stated complaint: Diarrhea Time Seen by Provider: 04/28/21 13:57 Source: patient, RN notes reviewed, old records reviewed Mode of arrival: ambulatory Limitations: no limitations - History of Present Illness Initial comments: Patient is a 60-year-old male with past medical history remarkable for ost eoarthritis, lower back pain, prediabetes who presents emergency Department complaining of a one-day history of palpable chest pain located over the inferior sternum and lower ribs as well as epigastric abdominal discomfort. States he has been having diarrhea since yesterday, that he describes as n onbloody and soft and brown. Denies any nausea or vomiting. He does endorse some nonspecific abdominal pain no known etiology, that is slightly worse on the right side.. He states that the chest pain is acute Puncture kicked along the lower sternum with some mild radiation to the left lower ribs. He denies any dyspnea with the pain. Denies any headaches, fatigue, blurry vision. He states he did feel diaphoretic earlier but that has since resolved. His no other acute complaints at this time. Patient presents over concern for the chest pain. He denies any fevers, chills, sick contacts, cough. He states he did receive both doses of the COVID-19 vaccination. - Related Data Home Medications Medication Instructions Recorded Confirmed Aspirin [Adult Low Dose Aspirin EC] 81 mg PO DAILY 02/15/19 04/28/21 Atorvastatin [Lipitor] 20 mg PO DAILY 02/15/19 04/28/21 Gabapentin [Neurontin] 600 mg PO BID 02/15/19 04/28/21 Montelukast Sodium [Singulair] 10 mg PO DAILY 02/15/19 04/28/21 amLODIPine BESYLATE 10 mg PO DAILY 02/15/19 04/28/21 hydroCHLOROthiazide [Hydrodiuril] 25 mg PO DAILY 02/15/19 04/28/21 metFORMIN HCL [metFORMIN HCL ER] 750 mg PO W/SUPPER 02/15/19 04/28/21 [place]-3 Fatty Acids/Fish Oil [Fish 1 cap PO DAILY 07/03/19 04/28/21 Oil 1,000 mg Softgel] traMADol HCL 50 - 100 mg PO TID PRN 07/03/19 04/28/21 Cyclobenzaprine [Flexeril] 10 mg PO BID PRN 10/18/20 04/28/21 Multivitamins, Thera [Multivitamin 1 tab PO DAILY 10/18/20 04/28/21 (formulary)] Omeprazole 20 mg PO DAILY 10/18/20 04/28/21 lisinopriL [Zestril] 10 mg PO DAILY 10/18/20 04/28/21 Acetaminophen [Tylenol Arthritis] 650 mg PO BID 04/28/21 04/28/21 Previous Rx's Medication Instructions Recorded Meclizine [Antivert] 12.5 mg PO Q8HR PRN #60 tablet 10/19/20 Acetaminophen [Tylenol 8 Hour] 650 mg PO 21 PRN 7 Days #21 tab 04/28/21 Ibuprofen [Motrin] 800 mg PO Q8H PRN #21 tab 04/28/21 Lidocaine 5% Patch [Lidoderm 5% 1 patch TOPICAL DAILY PRN 7 Days 04/28/21 Patch] #7 patch Methocarbamol [Robaxin-750] 1,500 mg PO Q8HR PRN 7 Days #42 04/28/21 tablet Allergies Allergy/AdvReac Type Severity Reaction Status Date / Time latex Allergy REDNESS Verified 04/28/21 16:19 eye dilating drop AdvReac jaw locked Uncoded 04/28/21 13:54 Review of Systems ROS Statement: Those systems with pertinent positive or pertinent negative responses have been documented in the HPI. Review of Systems: CONST: Denies fever EYES: Denies blurry vision ENT: Denies nasal congestion C/V: Endorses chest pain RESP: Denies shortness of breath GI: Endorses abdominal pain : Denies dysuria SKIN: Denies rash. MSK: Denies joint pain. NEURO: Denies headache ROS Other: All systems not noted in ROS Statement are negative. Past Medical History Past Medical History: Osteoarthritis (OA) Additional Past Medical History / Comment(s): Torn meniscus right knee; Vertigo; Lower back pain. Pre-diabetic History of Any Multi-Drug Resistant Organisms: None Reported Additional Past Surgical History / Comment(s): Varicocele Past Anesthesia/Blood Transfusion Reactions: Family History of Problems w/ Anesthesia Additional Past Anesthesia/Blood Transfusion Reaction / Comment(s): BROTHERS HAD REACTION, UNSURE WHAT. Past Psychological History: No Psychological Hx Reported Smoking Status: Never smoker Past Alcohol Use History: Occasional, Rare Past Drug Use History: None Reported - Past Family History Father Brother(s) Family Medical History: Cancer Sister(s) Family Medical History: Deep Vein Thrombosis (DVT) General Exam - General Exam Comments Initial Comments: General: Appears in no acute distress. HEAD: Normal with no signs of head trauma. EYES: PERRLA, EOMI, conjunctiva normal, no discharge. ENT: Hearing grossly intact, normal oropharynx. RESPIRATORY: Clear breath sounds bilaterally. No wheezes, rales, or rhonchi. C/V: Patient is mildly tachycardic with regular rhythm. S1 and S2 auscultated. No peripheral edema. Peripheral pulses are 2+ intact throughout. Chest pain is reproducible on palpation over the the inferior sternum with radiation over the inferior ribs near the sternum. ABD: Abdomen soft, nondistended. Pain is nonpalpable. There is no rebound tenderness. No CVA tenderness to percussion. EXT: Normal range of motion, no obvious deformity SKIN: No rashes or lesions observed on exposed skin. NEURO: Alert and oriented 4. Limitations: no limitations Course Vital Signs 04/28/21 04/28/21 04/28/21 13:50 16:53 17:52 Temperature 98.9 F 98.3 F Pulse Rate 108 H 92 71 Respiratory 16 17 18 Rate Blood Pressure 112/71 128/83 128/73 O2 Sat by Pulse 97 98 98 Oximetry Medical Decision Making - Medical Decision Making Based on the patient's presentation and physical exam, I'm concerned for possible cardiac etiology for his nonspecific chest pain, and I'm concerned for possible possible acute intra-abdominal pathology. His pain is nonreproducible on the exam is relatively not impressive of his abdomen. His chest pain is reproducible on palpation could be secondary to muscular causes. He continues to come back to his abdominal pain as well as his chest pain. 2 this persistenc e, we will obtain a CT abdomen and pelvis with contrast admission to a cardiac workup consisting of basic labs, troponin, EKG, chest x-ray abdominal laboratory studies. He has no urinary complaints a did not believe that a urine is required at this time. We will screen the patient for COVID-19 as he has been having diarrhea. He was in agreement this plan. He will be connected to continuous cardiac monitoring while is here in the department. He'll be symptomatically treated with 1 L fluid bolus, IV Zofran, morphine, Toradol, Benadryl, Pepcid. Patient also received a lidocaine patch for his chest. He was in agreement this plan. Patient's EKG showed no acute changes and no signs of acute ischemia. Patient's chest x-ray revealed no acute cardio or process. Patient's CT abdomen revealed possible hepatis steatosis, nonspecific gas pattern without evidence of obstruction or inflammatory change. Bladder wall is also thickened and radiology recommended possible cystitis. Laboratory studies were remarkable for a negative troponin. Patient is a negative COVID-19 swab. The remainder of his labs are unremarkable. On reevaluation come patient states that his chest wall pain has improved. I did discuss with him the results of his CT imaging and workup and explained the findings. I discussed with him urinalysis and both agreed that he is having no symptoms and is unlikely cystitis or infection at this time. All of his abdominal discomfort and chest discomfort is in the top of the abdomen. There is no CVA tenderness to percussion. Therefore there is low likelihood that this involves renal, or bladder issues. Expand from the negative laboratory studies. As he is having improved pain, as well as what appears to be chest wall tenderness, I do believe it is safer to be discharged home. Heart score is low. Patient was in agreement this plan. Patient's symptoms are likely secondary to his anterior chest wall pain with possible radiation into the epigastric region. I will provide the patient with a prescription for lidocaine patch, Tylenol, Motrin, Robaxin. I instructed the patient to follow up with their PCP in the next 3 days . I explained that the patient should return to the emergency department if they experience any worsening symptoms. Strict return precautions were discussed with the patient. The patient expressed understanding of these instructions. I answered all questions that the patient had. The patient was discharged home in good condition with their prescriptions and follow up information. - Lab Data Result diagrams: 04/28/21 14:20 04/28/21 14:20 Lab Results 04/28/21 04/28/21 04/28/21 Range/Units 14:20 14:20 14:20 WBC 10.2 (3.8-10.6) k/uL RBC 5.05 (4.30-5.90) m/uL Hgb 14.3 (13.0-17.5) gm/dL Hct 44.1 (39.0-53.0) % MCV 87.4 (80.0-100.0) fL MCH 28.3 (25.0-35.0) pg MCHC 32.3 (31.0-37.0) g/dL RDW 14.5 (11.5-15.5) % Plt Count 292 (150-450) k/uL MPV 8.5 Neutrophils % 71 % Lymphocytes % 21 % Monocytes % 5 % Eosinophils % 2 % Basophils % 1 % Neutrophils # 7.2 (1.3-7.7) k/uL Lymphocytes # 2.1 (1.0-4.8) k/uL Monocytes # 0.5 (0-1.0) k/uL Eosinophils # 0.2 (0-0.7) k/uL Basophils # 0.1 (0-0.2) k/uL PT 10.8 (9.0-12.0) sec INR 1.0 (<1.2) APTT 17.8 L (22.0-30.0) sec Sodium 136 L (137-145) mmol/L Potassium 3.8 (3.5-5.1) mmol/L Chloride 96 L (98-107) mmol/L Carbon Dioxide 24 (22-30) mmol/L Anion Gap 16 mmol/L BUN 11 (9-20) mg/dL Creatinine 0.63 L (0.66-1.25) mg/dL Est GFR (CKD-EPI)AfAm >90 (>60 ml/min/1.73 sqM) Est GFR (CKD-EPI)NonAf >90 (>60 ml/min/1.73 sqM) Glucose 201 H (74-99) mg/dL Calcium 9.8 (8.4-10.2) mg/dL Magnesium 1.8 (1.6-2.3) mg/dL Total Bilirubin 0.6 (0.2-1.3) mg/dL AST 42 (17-59) U/L ALT 41 (4-49) U/L Alkaline Phosphatase 89 (38-126) U/L Troponin I (0.000-0.034) ng/mL Total Protein 8.0 (6.3-8.2) g/dL Albumin 4.9 (3.5-5.0) g/dL Coronavirus (PCR) (Not Detectd) 04/28/21 04/28/21 Range/Units 14:20 14:20 WBC (3.8-10.6) k/uL RBC (4.30-5.90) m/uL Hgb (13.0-17.5) gm/dL Hct (39.0-53.0) % MCV (80.0-100.0) fL MCH (25.0-35.0) pg MCHC (31.0-37.0) g/dL RDW (11.5-15.5) % Plt Count (150-450) k/uL MPV Neutrophils % % Lymphocytes % % Monocytes % % Eosinophils % % Basophils % % Neutrophils # (1.3-7.7) k/uL Lymphocytes # (1.0-4.8) k/uL Monocytes # (0-1.0) k/uL Eosinophils # (0-0.7) k/uL Basophils # (0-0.2) k/uL PT (9.0-12.0) sec INR (<1.2) APTT (22.0-30.0) sec Sodium (137-145) mmol/L Potassium (3.5-5.1) mmol/L Chloride (98-107) mmol/L Carbon Dioxide (22-30) mmol/L Anion Gap mmol/L BUN (9-20) mg/dL Creatinine (0.66-1.25) mg/dL Est GFR (CKD-EPI)AfAm (>60 ml/min/1.73 sqM) Est GFR (CKD-EPI)NonAf (>60 ml/min/1.73 sqM) Glucose (74-99) mg/dL Calcium (8.4-10.2) mg/dL Magnesium (1.6-2.3) mg/dL Total Bilirubin (0.2-1.3) mg/dL AST (17-59) U/L ALT (4-49) U/L Alkaline Phosphatase (38-126) U/L Troponin I <0.012 (0.000-0.034) ng/mL Total Protein (6.3-8.2) g/dL Albumin (3.5-5.0) g/dL Coronavirus (PCR) Not Detected (Not Detectd) - EKG Data -: EKG Interpreted by Me EKG Comments: 12-lead Electrocardiogram Interpretation Note EKG was reviewed and interpreted by myself. 12-lead ECG performed at 14 oh to is interpreted by me as revealing sinus tachycardia at a rate of 105 beats per m inute. [place] is normal. [place] interval is undetectable today milliseconds, QRS ration is 152 ms, QTc is 420 ms, artificial PERRLA. Right bundle branch block.. Patient does have T-wave inversions in lead III which are seen on prior EKGs. The right bundle branch block is also seen on prior EKGs. By my interpretation this EKG is non-diagnostic for acute ischemia. It reveals chronic EKG changes seen on prior EKGs. Patient has a right bundle-branch block. Disposition Clinical Impression: Chest pain of unknown etiology, Abdominal pain of unknown cause, Diarrhea, Chest wall pain Disposition: HOME SELF-CARE Condition: Good Instructions (If sedation given, give patient instructions): Chest Pain (ED), Costochondritis (ED), Abdominal Pain (ED) Prescriptions: Lidocaine 5% Patch [Lidoderm 5% Patch] 1 patch TOPICAL DAILY PRN 7 Days #7 patch PRN Reason: Pain Ibuprofen [Motrin] 800 mg PO Q8H PRN #21 tab PRN Reason: Pain Methocarbamol [Robaxin-750] 1,500 mg PO Q8HR PRN 7 Days #42 tablet PRN Reason: Muscle Pain Acetaminophen [Tylenol 8 Hour] 650 mg PO 21 PRN 7 Days #21 tab PRN Reason: Pain Is patient prescribed a controlled substance at d/c from ED?: No Referrals: Jacob Segura MD [Primary Care Provider] - 1-2 days
[2021-04-28 17:53] VITALS: BP 128/73; PULSE 71; RESP 18; TEMP 98.3
== END 2021-04-28 17:53 | disposition home or self-care (01) ==
LOC: EC 13:42
DX: R07.81 Pleurodynia (principal); R10.13 Epigastric pain; R19.7 Diarrhea, unspecified; M54.5 Low back pain; R73.03 Prediabetes; M19.90 Unspecified osteoarthritis, unspecified site; Z91.040 Latex allergy status; Z88.8 Allergy status to other drugs, medicaments and biological substances; Z79.82 Long term (current) use of aspirin; Z79.84 Long term (current) use of oral hypoglycemic drugs; Z20.822 Contact with and (suspected) exposure to COVID-19
CPT/HCPCS: 36415; 93005; 80053; 83735; 84484; 85025; 85610; 85730; 87635; 71046; 74177; 99285; 96361; 96374; 96376; 96375; J2270; J1200; J2405; J1885; Q9967

== ENCOUNTER 2021-05-19 11:03 | Emergency (ER) | payer OTHER ==
[2021-05-19 11:18] VITALS: TEMP 98
--- NOTE | 2021-05-19 12:04 | CT ---
EXAMINATION TYPE: CT brain shirley wo con DATE OF EXAM: 05/19/2021 COMPARISON: 10/18/2020 HISTORY: pain post fall CT DLP: 1940.6 mGycm, Automated exposure control for dose reduction was used. CONTRAST: None CT of the brain is performed utilizing 3 mm thick sections through the posterior fossa and 3 mm thick sections through the remaining calvarium. Study is performed within 24 hours of arrival to the hospital. No abnormal hyperdensity is present to suggest an acute intracranial hemorrhage. No mass lesion is evident. No acute infarcts are evident. Ventricles and sulci are mildly prominent for the patient age. Paranasal sinuses and mastoid air cells within the [id number] are clear. IMPRESSIONS: 1. Mild age-related atrophy. 2. No acute intracranial process. CT cervical spine. COMPARISON: None CT of the cervical spine is performed in the axial plane at 2 mm thick sections. Reconstructed image s in the coronal, and sagittal plane are reviewed on the computer. No acute fractures are evident. Vertebral body alignment is normal. Disc space narrowing is noted at C4-5 and mildly C5-6 C6-7. Vertebral body heights are preserved. Facet hypertrophy is present on the left at C2-C3 causing some mild foraminal narrowing. Uncovertebral joint hypertrophy is present with severe foraminal narrowing bilaterally at C4-5. Some endplate spurring may have some mild anterior thecal sac impression at this level. Uncovertebral join t hypertrophy also is contributing to severe foraminal stenosis C5-C6. Small central spurs present at the superior endplate of C6. Uncovertebral joint hypertrophy is severe bilateral foraminal stenosis C6-7. IMPRESSIONS: 1. No acute osseous abnormality cervical spine. 2. Degenerative disc changes. 3. Facet hypertrophy and uncovertebral joint hypertrophy contributing to severe foraminal stenosis in the upper and mid cervical spine discussed above
--- NOTE | 2021-05-19 12:06 | ED ---
Fall HPI - General Chief Complaint: Fall Stated Complaint: [facility] fall, back pain Time Seen by Provider: 05/19/21 11:06 Source: patient, EMS, RN notes reviewed Mode of arrival: EMS Limitations: physical limitation - History of Present Illness Initial Comments: This is a 60-year-old male presents emergency department via EMS chief complaint of a fall. Patient had trip and fall down 3 steps. Patient states that he has left-sided neck discomfort which is placed in a c-collar by EMS, left side of his neck. Patient also complains of lower back pain. Denies any bowel bladder incontinence or retention no hip pain no extremity pain no upper extremity pain hasn't complains of upper back chest or abdominal discomfort. Patient does not take any blood thinners including Plavix, brilinta, Eliquis - Related Data Home Medications Medication Instructions Recorded Confirmed Aspirin [Adult Low Dose Aspirin EC] 81 mg PO DAILY 02/15/19 04/28/21 Atorvastatin [Lipitor] 20 mg PO DAILY 02/15/19 04/28/21 Gabapentin [Neurontin] 600 mg PO BID 02/15/19 04/28/21 Montelukast Sodium [Singulair] 10 mg PO DAILY 02/15/19 04/28/21 amLODIPine BESYLATE 10 mg PO DAILY 02/15/19 04/28/21 hydroCHLOROthiazide [Hydrodiuril] 25 mg PO DAILY 02/15/19 04/28/21 metFORMIN HCL [metFORMIN HCL ER] 750 mg PO W/SUPPER 02/15/19 04/28/21 [place]-3 Fatty Acids/Fish Oil [Fish 1 cap PO DAILY 07/03/19 04/28/21 Oil 1,000 mg Softgel] traMADol HCL 50 - 100 mg PO TID PRN 07/03/19 04/28/21 Cyclobenzaprine [Flexeril] 10 mg PO BID PRN 10/18/20 04/28/21 Multivitamins, Thera [Multivitamin 1 tab PO DAILY 10/18/20 04/28/21 (formulary)] Omeprazole 20 mg PO DAILY 10/18/20 04/28/21 lisinopriL [Zestril] 10 mg PO DAILY 10/18/20 04/28/21 Acetaminophen [Tylenol Arthritis] 650 mg PO BID 04/28/21 04/28/21 Previous Rx's Medication Instructions Recorded Meclizine [Antivert] 12.5 mg PO Q8HR PRN #60 tablet 10/19/20 Acetaminophen [Tylenol 8 Hour] 650 mg PO 21 PRN 7 Days #21 tab 04/28/21 Ibuprofen [Motrin] 800 mg PO Q8H PRN #21 tab 04/28/21 Lidocaine 5% Patch [Lidoderm 5% 1 patch TOPICAL DAILY PRN 7 Days 04/28/21 Patch] #7 patch Methocarbamol [Robaxin-750] 1,500 mg PO Q8HR PRN 7 Days #42 04/28/21 tablet Allergies Allergy/AdvReac Type Severity Reaction Status Date / Time latex Allergy REDNESS Verified 05/19/21 12:38 eye dilating drop AdvReac jaw locked Uncoded 05/19/21 12:38 Review of Systems ROS Statement: Those systems with pertinent positive or pertinent negative responses have been documented in the HPI. ROS Other: All systems not noted in ROS Statement are negative. Past Medical History Past Medical History: Osteoarthritis (OA) Additional Past Medical History / Comment(s): Torn meniscus right knee; Vertigo; Lower back pain. Pre-diabetic History of Any Multi-Drug Resistant Organisms: None Reported Additional Past Surgical History / Comment(s): Varicocele Past Anesthesia/Blood Transfusion Reactions: Family History of Problems w/ Anesthesia Additional Past Anesthesia/Blood Transfusion Reaction / Comment(s): BROTHERS HAD REACTION, UNSURE WHAT. Past Psychological History: No Psychological Hx Reported Smoking Status: Never smoker Past Alcohol Use History: Occasional, Rare Past Drug Use History: None Reported - Past Family History Father Brother(s) Family Medical History: Cancer Sister(s) Family Medical History: Deep Vein Thrombosis (DVT) General Exam Limitations: no limitations General appearance: alert, in no apparent distress Head exam: Present: atraumatic, normocephalic, normal inspection Eye exam: Present: normal appearance, PERRL, EOMI. Absent: scleral icterus, conjunctival injection, periorbital swelling ENT exam: Present: normal exam, normal oropharynx, mucous membranes moist Neck exam: Present: normal inspection, tenderness. Absent: meningismus, full ROM (Patient in c-collar), lymphadenopathy Respiratory exam: Present: normal lung sounds bilaterally. Absent: respiratory distress, wheezes, rales, rhonchi, stridor Cardiovascular Exam: Present: regular rate, normal rhythm, normal heart sounds. Absent: systolic murmur, diastolic murmur, rubs, gallop, clicks Extremities exam: Present: normal inspection, full ROM, normal capillary refill. Absent: tenderness, pedal edema, joint swelling, calf tenderness Back exam: Present: tenderness, paraspinal tenderness, vertebral tenderness. Absent: full ROM Neurological exam: Present: alert, oriented X3, CN II-XII intact, reflexes normal. Absent: motor sensory deficit Skin exam: Present: warm, dry, intact, normal color. Absent: rash Course Vital Signs 05/19/21 11:13 Temperature 98 F Pulse Rate 90 Respiratory 18 Rate Blood Pressure 137/72 O2 Sat by Pulse 94 L Oximetry Medical Decision Making - Medical Decision Making CT is unremarkable. Patient be discharged in stable condition. Patient is able to family does report some mild discomfort. No red flag symptoms. Disposition Clinical Impression: Fall, Low back pain, Neck pain Disposition: HOME SELF-CARE Condition: Stable Instructions (If sedation given, give patient instructions): Back Pain (ED) Additional Instructions: Please return to the Emergency Department if symptoms worsen or any other concerns. Is patient prescribed a controlled substance at d/c from ED?: No Referrals: Jacob Segura MD [Primary Care Provider] - 1-2 days Time of Disposition: 12:40
--- NOTE | 2021-05-19 12:28 | CT ---
EXAMINATION TYPE: CT lumbar spine wo con DATE OF EXAM: 05/19/2021 COMPARISON: None HISTORY: pain post fall CT DLP: 2511.4 mGycm Automated exposure control for dose reduction was used. Contrast: None Technique: Axial images 3 mm thick sections. Reconstructed images in sagittal plane FINDINGS: Lumbar spine scoliosis with convexity to the left centered at approximately L2. Spacers are between t he L2-3 and L3-4 spinous processes. Disc space narrowing is present diffusely throughout the lumbar s pine. Vacuum disc phenomenon noted L3-4 and L5-S1. Posterior endplate spurring is present L4 and L5. Spondylosis is present. Some chronic foraminal stenosis is present L2-L3 from facet hypertrophy. Spurring at the right facet has posterior lateral thecal sac compression at the L2-3 level. Some spinal canal stenosis from facet hypertrophy may be present L3-4. Disc bulging is present at L4-5 with mild intrathecal sac flattening. IMPRESSION: 1. SPINAL CANAL STENOSIS L3-4 PREDOMINANTLY DUE TO FACET HYPERTROPHY AND SPURRING 2. SCOLIOSIS AND MULTILEVEL DEGENERATIVE DISC CHANGES. 3. FORAMINAL STENOSIS ESPECIALLY NOTED L2-3 L3-4 AREA 4. NO ACUTE OSSEOUS ABNORMALITY
[2021-05-19] MEDS ORDERED: ACET/COD 300 MG/30 MG STARTER PACK 6 TAB BTL PO STA (12:41)
[2021-05-19 13:03] VITALS: BP 132/72; PULSE 88; RESP 16
== END 2021-05-19 13:03 | disposition home or self-care (01) ==
LOC: EC 11:03
DX: M54.5 Low back pain (principal); M54.2 Cervicalgia; M19.90 Unspecified osteoarthritis, unspecified site; Z79.84 Long term (current) use of oral hypoglycemic drugs; Z79.899 Other long term (current) drug therapy; W10.9XXA Fall (on) (from) unspecified stairs and steps, initial encounter
CPT/HCPCS: 70450; 72125; 72131; 99284

== ENCOUNTER → 2021-05-20 | Outpatient (CLI) | payer OTHER ==
--- NOTE | 2021-05-20 18:08 | XR ---
PROCEDURE: XR elbow complete LT - 3V DATE AND TIME: 05/20/2021 5:16 PM CLINICAL INDICATION: PHH; 40.012A, S60.222A, S50.02XA, S30.0XXA TECHNIQUE: Department protocol COMPARISON: None FINDINGS: There is no fracture or malalignment. Markedly prominent degenerative osteophytic spurring noted. The soft tissues are unremarkable. IMPRESSION: No acute process.
--- NOTE | 2021-05-20 18:10 | XR ---
PROCEDURE: XR shoulder complete LT - 3V DATE AND TIME: 05/20/2021 5:16 PM CLINICAL INDICATION: PHH; 40.012A, S60.222A, S50.02XA, S30.0XXA pain, injury TECHNIQUE: Department protocol COMPARISON: None FINDINGS: There is no fracture or malalignment. [id number] osteophytic spurring at the AC joint noted. Mild osteophytic spurring at the glenoh umeral joint. The soft tissues are unremarkable. IMPRESSION: No acute process
--- NOTE | 2021-05-20 18:14 | XR ---
PROCEDURE: XR pelvis AP view - 1V DATE AND TIME: 05/20/2021 5:16 PM CLINICAL INDICATION: PHH; 40.012A, S60.222A, S50.02XA, S30.0XXA pain after injury TECHNIQUE: Department protocol COMPARISON: None FINDINGS: There is no definite fracture or malalignment. However, there is overlapping of structures over the l eft femoral head. If there is tenderness in this position, additional radiographs can further charact erize. The soft tissues are unremarkable. IMPRESSION: No definite acute radiographic process, as discussed.
--- NOTE | 2021-05-20 18:16 | XR ---
PROCEDURE: XR hand complete LT - 3V DATE AND TIME: 05/20/2021 5:16 PM CLINICAL INDICATION: PHH; 40.012A, S60.222A, S50.02XA, S30.0XXA pain after fall TECHNIQUE: Department protocol COMPARISON: None FINDINGS: There is no fracture or malalignment. Prominently advanced multifocal degenerative joint changes noted, with associated osteophytic spurrin g. The soft tissues are unremarkable. IMPRESSION: No acute processes.
== END | disposition home or self-care (01) ==
LOC: RADXRMAIN 16:42
PROVIDERS: ATTEND Emergency Medicine
DX: S50.02XA Contusion of left elbow, initial encounter (principal); S40.012A Contusion of left shoulder, initial encounter; S30.0XXA Contusion of lower back and pelvis, initial encounter; S60.222A Contusion of left hand, initial encounter
CPT/HCPCS: 72170

== ENCOUNTER → 2021-06-01 | Outpatient (CLI) | payer OTHER ==
--- NOTE | 2021-06-01 15:13 | XR ---
EXAMINATION TYPE: XR knee complete RT DATE OF EXAM: 06/01/2021 COMPARISON: 10/08/2014 HISTORY: 60-year-old male S80.01XD pain,, right knee contusion after fall from ladder TECHNIQUE: 3 views FINDINGS: Tricompartment degenerative spurring. At least mild to moderate loss of cartilage and joint space in the medial compartment. There is a [id number] knee joint effusion. Extensor mechanism appears intact. No acute fracture, subluxation, or dislocation seen. IMPRESSION: At least moderate tricompartmental osteoporosis, progressed from 2014. No acute osseous abnormality s een. A [id number] knee joint effusion is likely reactive. If concern for internal derangement, MRI can be performed.
== END | disposition home or self-care (01) ==
LOC: RADXRMAIN 14:32
PROVIDERS: ATTEND Emergency Medicine
DX: S80.01XA Contusion of right knee, initial encounter (principal); M81.0 Age-related osteoporosis without current pathological fracture; W11.XXXA Fall on and from ladder, initial encounter

== ENCOUNTER 2021-08-12 23:23 | Emergency (ER) | payer OTHER ==
[2021-08-12 23:40] VITALS: TEMP 98.6
[2021-08-13] MEDS ORDERED: SODIUM CHLORIDE 0.9% 1,000 ML IV STA ×2 (00:10→01:40)
[2021-08-13] MEDS ORDERED: KETOROLAC 30 MG/ML 1 ML VIAL IVP STA (00:17)
[2021-08-13 00:41] LABS: Basophils % (A) 0 %; Eosinophils # (A) 0.2 k/uL (0-0.7); Eosinophils % (A) 2 %; HCT 44.4 % (39.0-53.0); HGB 14.3 gm/dL (13.0-17.5); Lymphocytes # (A) 2.7 k/uL (1.0-4.8); Lymphocytes % (A) 26 %; MCHC 32.3 g/dL (31.0-37.0); MCV 86.7 fL (80.0-100.0); Mean Platelet Volume 7.9; Monocytes # (A) 0.4 k/uL (0-1.0); Monocytes % (A) 4 %; Neutrophils # (A) 6.8 k/uL (1.3-7.7); Neutrophils % (A) 66 %; Platelet Count 276 k/uL (150-450); RBC 5.12 m/uL (4.30-5.90); RDW 13.6 % (11.5-15.5); WBC 10.3 k/uL (3.8-10.6)
--- NOTE | 2021-08-13 00:49 | ED ---
General Adult HPI - General Chief complaint: Abdominal Pain Stated complaint: diarrhea Time Seen by Provider: 08/12/21 23:44 Source: patient, RN notes reviewed Mode of arrival: ambulatory Limitations: no limitations - History of Present Illness Initial comments: 60-year-old male presents to the emergency room for a chief complaint of diarrhea. Patient reports he has had diarrhea on and off for 4 months. States his last year and his nutrition has not been good since then. Patient states he also gets abdominal pain. States it is in the lower abdomen. Patient has had diverticulitis in the past but this does not quite feel similar. Pain seems to be worse in the left. No nausea vomiting. No fevers.Patient has no other complaints at this time including shortness of breath, chest pain, nausea or vomiting, headache, or visual changes. - Related Data Home Medications Medication Instructions Recorded Confirmed RX: Aspirin [Adult Low Dose 81 mg PO DAILY 02/15/19 05/19/21 Aspirin EC] RX: Atorvastatin [Lipitor] 20 mg PO DAILY 02/15/19 05/19/21 RX: Gabapentin [Neurontin] 600 mg PO BID 02/15/19 05/19/21 RX: Montelukast Sodium [Singulair] 10 mg PO DAILY 02/15/19 05/19/21 RX: amLODIPine BESYLATE 10 mg PO DAILY 02/15/19 05/19/21 RX: hydroCHLOROthiazide 25 mg PO DAILY 02/15/19 05/19/21 [Hydrodiuril] RX: metFORMIN HCL [metFORMIN HCL 750 mg PO W/SUPPER 02/15/19 05/19/21 ER] RX: [place]-3 Fatty Acids/Fish Oil 1 cap PO DAILY 07/03/19 05/19/21 [Fish Oil 1,000 mg Softgel] RX: traMADol HCL 50 - 100 mg PO TID PRN 07/03/19 05/19/21 RX: Multivitamins, Thera 1 tab PO DAILY 10/18/20 05/19/21 [Multivitamin (formulary)] RX: Omeprazole 20 mg PO DAILY 10/18/20 05/19/21 RX: lisinopriL [Zestril] 10 mg PO DAILY 10/18/20 05/19/21 Ergocalciferol [Vitamin D2 (1250 1,250 mcg PO Q14D 05/19/21 05/19/21 Mcg = 54451 Iu)] RX: Acetaminophen [Tylenol 8 Hour] 650 mg PO Q8H PRN 05/19/21 05/19/21 Previous Rx's Medication Instructions Recorded Methocarbamol [Robaxin-750] 1,500 mg PO Q8HR PRN 7 Days #42 04/28/21 tablet RX: Ibuprofen [Motrin] 800 mg PO Q8H PRN #21 tab 04/28/21 Allergies Allergy/AdvReac Type Severity Reaction Status Date / Time latex Allergy REDNESS Verified 08/12/21 23:40 eye dilating drop AdvReac jaw locked Uncoded 08/12/21 23:40 Review of Systems ROS Statement: Those systems with pertinent positive or pertinent negative responses have been documented in the HPI. ROS Other: All systems not noted in ROS Statement are negative. Past Medical History Past Medical History: Osteoarthritis (OA) Additional Past Medical History / Comment(s): Torn meniscus right knee; Vertigo; Lower back pain. Pre-diabetic History of Any Multi-Drug Resistant Organisms: None Reported Additional Past Surgical History / Comment(s): Varicocele Past Anesthesia/Blood Transfusion Reactions: Family History of Problems w/ Anesthesia Additional Past Anesthesia/Blood Transfusion Reaction / Comment(s): BROTHERS HAD REACTION, UNSURE WHAT. Past Psychological History: No Psychological Hx Reported Smoking Status: Never smoker Past Alcohol Use History: Occasional, Rare Past Drug Use History: None Reported - Past Family History Father Brother(s) Family Medical History: Cancer Sister(s) Family Medical History: Deep Vein Thrombosis (DVT) General Exam Limitations: no limitations General appearance: alert, in no apparent distress Head exam: Present: atraumatic Eye exam: Present: normal appearance, PERRL, EOMI. Absent: scleral icterus, conjunctival injection ENT exam: Present: normal exam, mucous membranes moist Neck exam: Present: normal inspection, full ROM. Absent: tenderness Respiratory exam: Present: normal lung sounds bilaterally. Absent: respiratory distress, wheezes Cardiovascular Exam: Present: regular rate, normal rhythm, normal heart sounds GI/Abdominal exam: Present: soft, tenderness (Left-sided mid abdominal ten derness), normal bowel sounds. Absent: distended Course Vital Signs 08/12/21 08/13/21 23:37 02:00 Temperature 98.6 F Pulse Rate 108 H 95 Respiratory 20 18 Rate Blood Pressure 149/87 132/72 O2 Sat by Pulse 98 96 Oximetry Medical Decision Making - Medical Decision Making Vitals are stable. Patient well-appearing. He did have left mid abdominal tenderness. Patient did have some diarrhea today. Denies bloody diarrhea. This has been ongoing on and off for 4 months. CBC unremarkable. CMP does show hyperglycemia. This did improve after fluids. Lactic acid elevated at 4.0. Suspect secondary to dehydration. Urinalysis does not show any evidence of infection. CT abdomen and pelvis did not show any acute abnormality. Patient reevaluated. He is feeling much better. I offered admission secondary to lactic acidosis for IV fluids. Patient states he has cats at home and cannot stay in the hospital, prefers discharge home. As discussed lactic acidosis and hyperglycemia was treated with fluids. Patient will be discharged home. He will return here for any worsening symptoms. - Lab Data Result diagrams: 08/13/21 00:25 08/13/21 00:25 Lab Results 08/13/21 08/13/21 08/13/21 Range/Units 00:25 00:25 00:25 WBC 10.3 (3.8-10.6) k/uL RBC 5.12 (4.30-5.90) m/uL Hgb 14.3 (13.0-17.5) gm/dL Hct 44.4 (39.0-53.0) % MCV 86.7 (80.0-100.0) fL MCH 28.0 (25.0-35.0) pg MCHC 32.3 (31.0-37.0) g/dL RDW 13.6 (11.5-15.5) % Plt Count 276 (150-450) k/uL MPV 7.9 Neutrophils % 66 % Lymphocytes % 26 % Monocytes % 4 % Eosinophils % 2 % Basophils % 0 % Neutrophils # 6.8 (1.3-7.7) k/uL Lymphocytes # 2.7 (1.0-4.8) k/uL Monocytes # 0.4 (0-1.0) k/uL Eosinophils # 0.2 (0-0.7) k/uL Basophils # 0.0 (0-0.2) k/uL Sodium 133 L (137-145) mmol/L Potassium 4.5 (3.5-5.1) mmol/L Chloride 96 L (98-107) mmol/L Carbon Dioxide 24 (22-30) mmol/L Anion Gap 13 mmol/L BUN 19 (9-20) mg/dL Creatinine 0.84 (0.66-1.25) mg/dL Est GFR (CKD-EPI)AfAm >90 (>60 ml/min/1.73 sqM) Est GFR (CKD-EPI)NonAf >90 (>60 ml/min/1.73 sqM) Glucose 354 H (74-99) mg/dL POC Glucose (mg/dL) (75-99) mg/dL POC Glu Micro Photographer ID Lactic Ac Sepsis Rflx Plasma Lactic Acid Pierre 4.0 H* (0.7-2.0) mmol/L Calcium 9.8 (8.4-10.2) mg/dL Total Bilirubin 0.4 (0.2-1.3) mg/dL AST 31 (17-59) U/L ALT 36 (4-49) U/L Alkaline Phosphatase 80 (38-126) U/L Total Protein 7.5 (6.3-8.2) g/dL Albumin 4.4 (3.5-5.0) g/dL Amylase 56 (30-110) U/L Lipase 298 (23-300) U/L Urine Color Urine Appearance (Clear) Urine pH (5.0-8.0) Ur Specific [place] (1.001-1.035) Urine Protein (Negative) Urine Glucose (UA) (Negative) Urine Ketones (Negative) Urine Blood (Negative) Urine Nitrite (Negative) Urine Bilirubin (Negative) Urine Urobilinogen (<2.0) mg/dL Ur Leukocyte Esterase (Negative) Urine RBC (0-5) /hpf Urine WBC (0-5) /hpf Ur Squamous Epith Cells (0-4) /hpf Urine Mucus (None) /hpf Coronavirus (PCR) (Not Detectd) 08/13/21 08/13/21 08/13/21 Range/Units 00:25 01:04 02:04 WBC (3.8-10.6) k/uL RBC (4.30-5.90) m/uL Hgb (13.0-17.5) gm/dL Hct (39.0-53.0) % MCV (80.0-100.0) fL MCH (25.0-35.0) pg MCHC (31.0-37.0) g/dL RDW (11.5-15.5) % Plt Count (150-450) k/uL MPV Neutrophils % % Lymphocytes % % Monocytes % % Eosinophils % % Basophils % % Neutrophils # (1.3-7.7) k/uL Lymphocytes # (1.0-4.8) k/uL Monocytes # (0-1.0) k/uL Eosinophils # (0-0.7) k/uL Basophils # (0-0.2) k/uL Sodium (137-145) mmol/L Potassium (3.5-5.1) mmol/L Chloride (98-107) mmol/L Carbon Dioxide (22-30) mmol/L Anion Gap mmol/L BUN (9-20) mg/dL Creatinine (0.66-1.25) mg/dL Est GFR (CKD-EPI)AfAm (>60 ml/min/1.73 sqM) Est GFR (CKD-EPI)NonAf (>60 ml/min/1.73 sqM) Glucose (74-99) mg/dL POC Glucose (mg/dL) (75-99) mg/dL POC Glu Micro Photographer ID Lactic Ac Sepsis Rflx Y Plasma Lactic Acid Pierre (0.7-2.0) mmol/L Calcium (8.4-10.2) mg/dL Total Bilirubin (0.2-1.3) mg/dL AST (17-59) U/L ALT (4-49) U/L Alkaline Phosphatase (38-126) U/L Total Protein (6.3-8.2) g/dL Albumin (3.5-5.0) g/dL Amylase (30-110) U/L Lipase (23-300) U/L Urine Color Yellow Urine Appearance Clear (Clear) Urine pH 5.5 (5.0-8.0) Ur Specific [place] >1.050 H (1.001-1.035) Urine Protein Trace H (Negative) Urine Glucose (UA) 4+ H (Negative) Urine Ketones 1+ H (Negative) Urine Blood Trace H (Negative) Urine Nitrite Negative (Negative) Urine Bilirubin Negative (Negative) Urine Urobilinogen <2.0 (<2.0) mg/dL Ur Leukocyte Esterase Negative (Negative) Urine RBC 2 (0-5) /hpf Urine WBC 2 (0-5) /hpf Ur Squamous Epith Cells <1 (0-4) /hpf Urine Mucus Rare H (None) /hpf Coronavirus (PCR) Not Detected (Not Detectd) 08/13/21 Range/Units 03:13 WBC (3.8-10.6) k/uL RBC (4.30-5.90) m/uL Hgb (13.0-17.5) gm/dL Hct (39.0-53.0) % MCV (80.0-100.0) fL MCH (25.0-35.0) pg MCHC (31.0-37.0) g/dL RDW (11.5-15.5) % Plt Count (150-450) k/uL MPV Neutrophils % % Lymphocytes % % Monocytes % % Eosinophils % % Basophils % % Neutrophils # (1.3-7.7) k/uL Lymphocytes # (1.0-4.8) k/uL Monocytes # (0-1.0) k/uL Eosinophils # (0-0.7) k/uL Basophils # (0-0.2) k/uL Sodium (137-145) mmol/L Potassium (3.5-5.1) mmol/L Chloride (98-107) mmol/L Carbon Dioxide (22-30) mmol/L Anion Gap mmol/L BUN (9-20) mg/dL Creatinine (0.66-1.25) mg/dL Est GFR (CKD-EPI)AfAm (>60 ml/min/1.73 sqM) Est GFR (CKD-EPI)NonAf (>60 ml/min/1.73 sqM) Glucose (74-99) mg/dL POC Glucose (mg/dL) 213 H (75-99) mg/dL POC Glu Micro Photographer ID Bobbi Bustillos Lactic Ac Sepsis Rflx Plasma Lactic Acid Pierre (0.7-2.0) mmol/L Calcium (8.4-10.2) mg/dL Total Bilirubin (0.2-1.3) mg/dL AST (17-59) U/L ALT (4-49) U/L Alkaline Phosphatase (38-126) U/L Total Protein (6.3-8.2) g/dL Albumin (3.5-5.0) g/dL Amylase (30-110) U/L Lipase (23-300) U/L Urine Color Urine Appearance (Clear) Urine pH (5.0-8.0) Ur Specific [place] (1.001-1.035) Urine Protein (Negative) Urine Glucose (UA) (Negative) Urine Ketones (Negative) Urine Blood (Negative) Urine Nitrite (Negative) Urine Bilirubin (Negative) Urine Urobilinogen (<2.0) mg/dL Ur Leukocyte Esterase (Negative) Urine RBC (0-5) /hpf Urine WBC (0-5) /hpf Ur Squamous Epith Cells (0-4) /hpf Urine Mucus (None) /hpf Coronavirus (PCR) (Not Detectd) Disposition Clinical Impression: Diarrhea, Abdominal pain, Hyperglycemia Disposition: HOME SELF-CARE Condition: Good Instructions (If sedation given, give patient instructions): Abdominal Pain (ED) Additional Instructions: Please follow-up with your doctor in one to 2 days. Return to the emergency room for any worsening symptoms. Is patient prescribed a controlled substance at d/c from ED?: No Referrals: Jacob Segura MD [Primary Care Provider] - 1-2 days Time of Disposition: 03:21
[2021-08-13 00:55] LABS: ALT 36 U/L (4-49); AST 31 U/L (17-59); African American GFR (CKD) >90 (>60 ml/min/1.73 sqM); Albumin 4.4 g/dL (3.5-5.0); Alkaline Phosphatase 80 U/L (38-126); Amylase 56 U/L (30-110); Anion Gap 13 mmol/L; Blood Urea Nitrogen 19 mg/dL (9-20); Calcium 9.8 mg/dL (8.4-10.2); Carbon Dioxide 24 mmol/L (22-30); Chloride 96 mmol/L (98-107); Glucose 354 mg/dL (74-99); Lipase 298 U/L (23-300); Non-African American GFR(CKD) >90 (>60 ml/min/1.73 sqM); Potassium 4.5 mmol/L (3.5-5.1); Sodium 133 mmol/L (137-145); Total Bilirubin 0.4 mg/dL (0.2-1.3); Total Protein 7.5 g/dL (6.3-8.2)
[2021-08-13] MEDS ORDERED: SODIUM CHLORIDE 0.9% 500 ML 500 ML IV STA (01:46)
[2021-08-13 02:06] VITALS: BP 132/72; PULSE 95; RESP 18
--- NOTE | 2021-08-13 02:28 | CT ---
EXAMINATION TYPE: CT abdomen pelvis w con DATE OF EXAM: 08/13/2021 COMPARISON: 04/28/2021 HISTORY: Abd Pain CT DLP: 2943.60 mGycm Automated exposure control for dose reduction was used. CONTRAST: Performed with IV Contrast, patient injected with 100 mL of Isovue 300. Images obtained from the diaphragm to the floor the pelvis with IV contrast. There is some mild interstitial infiltrate at the lung bases. Heart is enlarged. There is no pericard ial effusion. Liver is markedly enlarged and measures 29 cm. Spleen is intact. Stomach is intact. There is no pancr eatic mass. There is fatty infiltration of the liver. Gallbladder is intact. There is no adrenal mass. Kidneys show satisfactory contrast opacification. There is no hydronephrosi s. There are bilateral renal parapelvic cysts. Ureters are not dilated. There is no retroperitoneal a denopathy. Bladder distends smoothly. There is no inguinal hernia. There is no free fluid in the pelv is. Appendix is not seen. There is no sign of thickened appendix. The lumbar vertebra have normal alignment. There is no compression fracture. There is multilevel spon dylotic changes. There is facet arthropathy and moderately severe spinal stenosis at L3-4. The bony p agnes is intact. Hip joints are intact. IMPRESSION: There is hepatomegaly. Fatty infiltration of the liver. Appendix not seen. No sign of acute abdomen a nd pelvis. L3-4 lumbar spinal stenosis. No adverse change compared to old exam.
[2021-08-13 02:50] LABS: Appearance,Urine Clear (Clear); Bilirubin,Urine Negative (Negative); Blood,Urine Trace (Negative); Color,Urine Yellow; Glucose,Urine (UA) 4+ (Negative); Ketones,Urine 1+ (Negative); Leukocyte Esterase,Urine Negative (Negative); Mucus,Urine Rare /hpf; Nitrite,Urine Negative (Negative); PH, Urine 5.5 (5.0-8.0); Protein,Urine Trace (Negative); RBC,Urine 2 /hpf (0-5); Specific Gravity,Urine >1.050 (1.001-1.035); Squamous Epithelial Cell,Urine <1 /hpf (0-4); Urobilinogen,Urine <2.0 mg/dL (<2.0); WBC,Urine 2 /hpf (0-5)
[2021-08-13 03:16] LABS: Glucose,Whole Blood 213 mg/dL (75-99)
== END 2021-08-13 03:36 | disposition home or self-care (01) ==
LOC: EC 23:23
DX: R19.7 Diarrhea, unspecified (principal); R10.32 Left lower quadrant pain; R73.9 Hyperglycemia, unspecified; M19.90 Unspecified osteoarthritis, unspecified site; Z79.82 Long term (current) use of aspirin; Z79.84 Long term (current) use of oral hypoglycemic drugs; Z79.1 Long term (current) use of non-steroidal anti-inflammatories (NSAID); Z79.899 Other long term (current) drug therapy
CPT/HCPCS: 36415; 80053; 82150; 83605; 83690; 85025; 81001; 87635; 74177; 99284; 96374; 96361 ×2; J1885; Q9967

== ENCOUNTER 2021-08-13 07:24 | Inpatient (IN) | payer OTHER ==
[2021-08-13] MEDS ORDERED: KETOROLAC 30 MG/ML 1 ML VIAL IVP STA (07:47)
--- NOTE | 2021-08-13 08:00 | ED ---
Abdominal Pain HPI - General Chief Complaint: Abdominal Pain Stated Complaint: revisit - diarrhea Time Seen by Provider: 08/13/21 07:36 Source: patient, RN notes reviewed, old records reviewed Mode of arrival: ambulatory Limitations: no limitations - History of Present Illness Initial Comments: Patient is a 60-year-old male with history of diabetes, presenting to the emergency department for revisit for his diarrhea. Patient states he's had intermittent diarrhea over the past few months but has worsened the last 4 days. Patient was seen here last night for same complaint. He had a complete workup, revealed dehydration, hyperglycemia. They did recommend admission however patient states he needed to go home. He states over the last couple hours his lower abdominal pain has worsened and he has another bout of diarrhea. He describes the pain is almost lower abdomen, no radiation. He does have history of diverticulitis however computed tomography scan yesterday was negative for that. Patient denies any fevers or chills, no chest pain or shortness of breath. He denies any abdominal surgeries. No history of C. diff, no recent antibiotic use. He has no further complaints. Patient's vital signs are stable upon arrival. - Related Data Home Medications Medication Instructions Recorded Confirmed Aspirin [Adult Low Dose Aspirin EC] 81 mg PO DAILY 02/15/19 08/13/21 Atorvastatin [Lipitor] 20 mg PO HS 02/15/19 08/13/21 Gabapentin [Neurontin] 600 mg PO Q8H PRN 02/15/19 08/13/21 Montelukast Sodium [Singulair] 10 mg PO HS 02/15/19 08/13/21 amLODIPine BESYLATE 10 mg PO DAILY 02/15/19 08/13/21 hydroCHLOROthiazide [Hydrodiuril] 25 mg PO DAILY 02/15/19 08/13/21 metFORMIN HCL [metFORMIN HCL ER] 750 mg PO HS 02/15/19 08/13/21 traMADol HCL 50 - 100 mg PO TID 07/03/19 08/13/21 Omeprazole 20 mg PO DAILY 10/18/20 08/13/21 lisinopriL [Zestril] 10 mg PO DAILY 10/18/20 08/13/21 Acetaminophen [Tylenol 8 Hour] 1,300 mg PO BID 05/19/21 08/13/21 Ergocalciferol [Vitamin D2 (1250 1,250 mcg PO Q30D 05/19/21 08/13/21 Mcg = 87218 Iu)] Citalopram Hydrobromide [CeleXA] 20 mg PO DAILY 08/13/21 08/13/21 Fish Oil 1200mg W/Vitamin D3 50mcg 2 cap PO HS 08/13/21 08/13/21 Ibuprofen [Advil] 400 mg PO BID 08/13/21 08/13/21 Multivitamin [Multivitamins Adult 2 tab PO HS 08/13/21 08/13/21 Gummies] Allergies Allergy/AdvReac Type Severity Reaction Status Date / Time latex Allergy REDNESS Verified 08/13/21 09:51 eye dilating drop AdvReac jaw locked Uncoded 08/13/21 09:51 Review of Systems ROS Statement: Those systems with pertinent positive or pertinent negative responses have been documented in the HPI. ROS Other: All systems not noted in ROS Statement are negative. Past Medical History Past Medical History: Osteoarthritis (OA) Additional Past Medical History / Comment(s): Torn meniscus right knee; Vertigo; Lower back pain. Pre-diabetic History of Any Multi-Drug Resistant Organisms: None Reported Additional Past Surgical History / Comment(s): Varicocele Past Anesthesia/Blood Transfusion Reactions: Family History of Problems w/ Anesthesia Additional Past Anesthesia/Blood Transfusion Reaction / Comment(s): BROTHERS HAD REACTION, UNSURE WHAT. Past Psychological History: No Psychological Hx Reported Smoking Status: Never smoker Past Alcohol Use History: Occasional, Rare Past Drug Use History: None Reported - Past Family History Father Brother(s) Family Medical History: Cancer Sister(s) Family Medical History: Deep Vein Thrombosis (DVT) General Exam - General Exam Comments Initial Comments: GENERAL: Patient is well-developed and well-nourished. Patient is nontoxic and in no acute distress. HEAD: Atraumatic, normocephalic. EYES: Pupils equal round and reactive to light, extraocular movements intact, sclera anicteric, conjunctiva are normal. Eyelids were unremarkable. ENT: Oropharynx clear without exudates. Moist mucous membranes. NECK: Normal range of motion, supple without lymphadenopathy or JVD. LUNGS: Unlabored respirations. Breath sounds clear to auscultation bilaterally and equal. No wheezes rales or rhonchi. HEART: Regular rate and rhythm without murmurs, rubs or gallops. ABDOMEN: Soft, tender to palpation of the entire lower abdomen, no specific area, hyperactive bowel sounds. No guarding, no rebound. No masses appreciated. : Deferred MUSCULOSKELETAL: Normal extremities with adequate strength and normal range of motion, no pitting or edema. No clubbing or cyanosis. NEUROLOGICAL: Patient is alert and oriented x 3. Motor and sensory are also intact. Cranial nerves II through XII grossly intact. Symmetrical smile. Normal speech, normal gait. PSYCH: Normal mood, normal affect. SKIN: Warm, Dry, normal turgor, no rashes or lesions noted. Limitations: no limitations Course Vital Signs 08/13/21 08/13/21 07:26 09:26 Temperature 97.8 F Pulse Rate 93 87 Respiratory 18 20 Rate Blood Pressure 134/84 142/87 O2 Sat by Pulse 98 96 Oximetry Medical Decision Making - Medical Decision Making Patient is 60-year-old male here for a Danny visit for lower abdominal pain, diarrhea over the past couple days. He is afebrile, vitals are stable. He was evaluated yesterday evening for same complaint, labs last night showed a lactic acidosis and hyperglycemia, he was given fluids for this and refused admission. Computed tomography scan showed no adverse findings. Repeat labs today continue to show a normal white count, lactic acid is still elevated at 3.0, glucose is 3:30, lipase is 409. Patient will be given IV fluids, pain control. Patient will be admitted, patient accepted by Dr. Francois. Case discussed with Dr. Evans. C. diff is pending at this time. - Lab Data Result diagrams: 08/13/21 07:57 08/13/21 07:57 Lab Results 08/13/21 08/13/21 08/13/21 Range/Units 07:57 07:57 07:57 WBC 8.1 (3.8-10.6) k/uL RBC 4.56 (4.30-5.90) m/uL Hgb 12.9 L (13.0-17.5) gm/dL Hct 40.3 (39.0-53.0) % MCV 88.5 (80.0-100.0) fL MCH 28.2 (25.0-35.0) pg MCHC 31.9 (31.0-37.0) g/dL RDW 13.7 (11.5-15.5) % Plt Count 258 (150-450) k/uL MPV 8.0 Neutrophils % 65 % Lymphocytes % 26 % Monocytes % 4 % Eosinophils % 2 % Basophils % 1 % Neutrophils # 5.3 (1.3-7.7) k/uL Lymphocytes # 2.1 (1.0-4.8) k/uL Monocytes # 0.4 (0-1.0) k/uL Eosinophils # 0.2 (0-0.7) k/uL Basophils # 0.0 (0-0.2) k/uL Sodium 134 L (137-145) mmol/L Potassium 4.3 (3.5-5.1) mmol/L Chloride 101 (98-107) mmol/L Carbon Dioxide 23 (22-30) mmol/L Anion Gap 10 mmol/L BUN 17 (9-20) mg/dL Creatinine 0.92 (0.66-1.25) mg/dL Est GFR (CKD-EPI)AfAm >90 (>60 ml/min/1.73 sqM) Est GFR (CKD-EPI)NonAf 89 (>60 ml/min/1.73 sqM) Glucose 327 H (74-99) mg/dL Plasma Lactic Acid Pierre 3.0 H* (0.7-2.0) mmol/L Calcium 8.7 (8.4-10.2) mg/dL Total Bilirubin 0.4 (0.2-1.3) mg/dL AST 30 (17-59) U/L ALT 31 (4-49) U/L Alkaline Phosphatase 61 (38-126) U/L Total Protein 6.8 (6.3-8.2) g/dL Albumin 3.9 (3.5-5.0) g/dL Lipase 409 H (23-300) U/L Disposition Clinical Impression: Diarrhea, Hyperglycemia, Abdominal pain Disposition: ADMITTED IP TO [facility] Condition: Stable Decision Date: 08/13/21 Decision Time: 09:28
[2021-08-13 08:25] LABS: Basophils % (A) 1 %; Eosinophils # (A) 0.2 k/uL (0-0.7); Eosinophils % (A) 2 %; HCT 40.3 % (39.0-53.0); HGB 12.9 gm/dL (13.0-17.5); Lymphocytes # (A) 2.1 k/uL (1.0-4.8); Lymphocytes % (A) 26 %; MCH 28.2 pg (25.0-35.0); MCHC 31.9 g/dL (31.0-37.0); MCV 88.5 fL (80.0-100.0); Monocytes # (A) 0.4 k/uL (0-1.0); Monocytes % (A) 4 %; Neutrophils # (A) 5.3 k/uL (1.3-7.7); Neutrophils % (A) 65 %; Platelet Count 258 k/uL (150-450); RBC 4.56 m/uL (4.30-5.90); RDW 13.7 % (11.5-15.5); WBC 8.1 k/uL (3.8-10.6)
[2021-08-13 08:45] LABS: ALT 31 U/L (4-49); AST 30 U/L (17-59); African American GFR (CKD) >90 (>60 ml/min/1.73 sqM); Albumin 3.9 g/dL (3.5-5.0); Alkaline Phosphatase 61 U/L (38-126); Anion Gap 10 mmol/L; Blood Urea Nitrogen 17 mg/dL (9-20); Calcium 8.7 mg/dL (8.4-10.2); Carbon Dioxide 23 mmol/L (22-30); Chloride 101 mmol/L (98-107); Glucose 327 mg/dL (74-99); Lipase 409 U/L (23-300); Non-African American GFR(CKD) 89 (>60 ml/min/1.73 sqM); Potassium 4.3 mmol/L (3.5-5.1); Sodium 134 mmol/L (137-145); Total Bilirubin 0.4 mg/dL (0.2-1.3); Total Protein 6.8 g/dL (6.3-8.2)
[2021-08-13] MEDS ORDERED: ACETAMINOPHEN TAB 325 MG TAB PO PRN (09:29)
[2021-08-13] MEDS ORDERED: NALOXONE 0.4 MG/ML 1 ML VIAL IV PRN (09:29)
[2021-08-13] MEDS ORDERED: KETOROLAC 15 MG/ML 1 ML VIAL IVP PRN (09:29)
[2021-08-13] MEDS ORDERED: ONDANSETRON 4 MG/2 ML VIAL IVP PRN ×2 (09:29→12:35)
[2021-08-13] MEDS ORDERED: MORPHINE SULFATE 4 MG/ML SYRINGE IV PRN (09:29)
[2021-08-13] MEDS ORDERED: LOPERAMIDE 2 MG CAP PO PRN (09:29)
[2021-08-13] MEDS ORDERED: SODIUM CHLORIDE 0.9% 1,000 ML IV SCH (09:30)
[2021-08-13] MEDS ORDERED: GABAPENTIN 300 MG CAP PO PRN (12:27)
--- NOTE | 2021-08-13 12:34 | P.HPIM ---
History of Present Illness H&P Date: 08/13/21 History of present illness 60 years old male of Dr. Segura with past medical history of prediabetes according to patient, osteoarthritis comes in with acute on chronic diarrhea that is happening for 4 months intermittently. For the past 4 days patient having multiple episodes of diarrhea associated with left lower quadrant of abdominal pain. He denies any blood in his stools, denies any history of melanoma. Patient denies any fever or chills. He does have history of diverticulitis in the past. He denies any use of new antibiotics or Protonix. Patient denies any sick contact. He discussed his symptoms with the primary care physician but since his symptoms got worse he decided to come to the emergency room. Vitals are stable patient afebrile pulse 93 respiratory rate 18 blood pressure 1:30/84 oxygen saturation 98% on room air. Labs are reviewed WBC is 8.1 hemoglobin 12.9 sodium 134 creatinine 0.92 BUN 17 lactic acid on admission was 3 glucose 327 and lipase 49. Patient came in with similar symptoms a day before and a CAT scan of abdomen and pelvis was done with IV contrast only CT abdomen and pelvis on 08/13 suggest with hepatomegaly fatty infiltration of the liver appendix could not be visualized no sign of acute abdomen or pelvis was seen L3-L4 lumbar spinal stenosis was noted. Finding was done with IV contrast only normal with contrast was infused. Patient will be initiated on levofloxacin 500 every every 24 hours and metronidazole 500 IV every 8 hours. We'll culture will be obtained. C. diff will be obtained. ESR and CRP obtained. CT abdomen was negative for pneumoperitoneum. Abdominal x-ray will be obtained today. ROS Constitutional: Denies chills, Denies fever, Denies lethargy, Denies malaise, Denies poor appetite, Denies weakness, Denies weight loss Eyes: denies decreased vision, denies diplopia, denies discharge, denies pain Ears: deny: decreased hearing Ears, nose, mouth and throat: Denies dental pain, Denies headache, Denies nasal discharge, Denies nose pain Cardiovascular: Denies chest pain, Denies decreased exercise tolerance, Denies edema, Denies high blood pressure, Denies irregular heart beat, Denies palpitations, Denies paroxysmal nocturnal dyspnea, Denies rapid heart beat, Denies shortness of breath Respiratory: Denies congestion, Denies cough, Denies cough with sputum, Denies dyspnea, Denies home oxygen, Denies wheezing Gastrointestinal:Endorses abdominal pain,endorses change in bowel habits, Denies coffee ground emesis, Denies early satiety, Denies excessive gas, Denies heartburn, Denies hematemesis, Denies hematochezia, Denies loss of appetite, Denies nausea, Denies vomiting Genitourinary: Denies dysuria, Denies flank pain, Denies kidney stones, Denies menorrhagia, Denies urgency, Denies urinary frequency Musculoskeletal: Denies gait dysfunction, Denies limitation of motion, Denies morning stiffness, Denies muscle cramps Integumentary: Denies rash, Denies wounds, Denies brittle nails, Denies change in hair/nails, Denies darkening of skin Neurological: Denies balance difficulties, Denies change in speech, Denies double vision, Denies gait dysfunction, Denies loss of vision, Denies motor dis turbance, Denies numbness, Denies paralysis, Denies paresthesias, Denies seizures Psychiatric: Denies anxiety, Denies depression Endocrine: Denies excessive sweating, Denies excessive thirst, Denies high blood sugars, Denies palpitations Hematologic/Lymphatic: Denies easy bruising, Denies lymphadenopathy Social history Nonsmoker Nondrinker No illicit drug use No children Family history Mother at age of 87 from COPD complications Father at age of 76 from stroke Patient has 6 brothers and 2 sisters. One brother has a history of head and neck cancer. One sister from suicide Physical exam - Constitutional General appearance: cooperative, no acute distress, obese - EENT Eyes: anicteric sclerae, PERRLA, normal appearance ENT: hearing grossly normal - Neck Neck: no lymphadenopathy, normal ROM, no other, no rigidity, no stridor, no thyromegaly - Respiratory Respiratory: bilateral: CTA, negative: diminished, dullness, rales, rhonchi - Cardiovascular Rhythm: regular Heart sounds: normal: S1, S2 Abnormal Heart Sounds: no systolic murmur, no diastolic murmur, no rub, no S3 Gallop, no S4 Gallop, no click, no other - Gastrointestinal General gastrointestinal: normal bowel sounds, softTender in the left and right lower quadrant. - Integumentary Integumentary: no rash - Neurologic Neurologic:Motor or sensory deficits - Musculoskeletal Musculoskeletal: gait normal, strength equal bilaterally - Psychiatric Psychiatric: A&O x's 3, appropriate affect Assessment and plan Acute abdominal pain with diarrhea likely secondary to diverticulitis - Continue IV fluids at 75 mL per hour - Clear liquid diet - Levofloxacin 500 mg IV daily and metronidazole 500 IV to 8 hours - stool culture and C. diff obtained to rule out C. diff colitis - Abdominal x-ray ordered - CT abdomen revealed no sign of pneumoperitoneum or acute abdomen. Oral contrast was not given bowels no visualized of the CAT scan of the abdomen and pelvis - If no improvement in pain, surgery will be consulted for possible colonoscopy - Pain control with morphine 4 mg IV every 6 hours - Hold Toradol Hyperglycemia, type 2 diabetes with diabetic neuropathy - HbA1c ordered - Insulin sliding scale - Hold metformin - Diabetic diet - Diabetic education - Continue gabapentin at 600 every 8 Hypertension - Continue Norvasc at 10 mg by mouth daily - Continue lisinopril 10 mg daily Acute anemia - Rule out GI bleed - Fecal occult ordered - Iron studies ordered - Likely due to dilutional continue continue to monitor daily CBC Hyperlipidemia - continue Lipitor 20 mg by mouth daily Anxiety and depression - Continue citalopram at 20 mg daily Disposition patient will need 1-2 inpatient nights for stabilization DVT prophylaxis with heparin every 12 GI prophylaxis with omeprazole. CODE STATUS full code Past Medical History Past Medical History: Osteoarthritis (OA) Additional Past Medical History / Comment(s): Torn meniscus right knee; Vertigo; Lower back pain. Pre-diabetic History of Any Multi-Drug Resistant Organisms: None Reported Additional Past Surgical History / Comment(s): Varicocele Past Anesthesia/Blood Transfusion Reactions: Family History of Problems w/ Anesthesia Additional Past Anesthesia/Blood Transfusion Reaction / Comment(s): BROTHERS HAD REACTION, UNSURE WHAT. Past Psychological History: No Psychological Hx Reported Smoking Status: Never smoker Past Alcohol Use History: Occasional, Rare Past Drug Use History: None Reported - Past Family History Father Brother(s) Family Medical History: Cancer Sister(s) Family Medical History: Deep Vein Thrombosis (DVT) Medications and Allergies Home Medications Medication Instructions Recorded Confirmed Type Aspirin [Adult Low Dose Aspirin EC] 81 mg PO DAILY 02/15/19 08/13/21 History Atorvastatin [Lipitor] 20 mg PO HS 02/15/19 08/13/21 History Gabapentin [Neurontin] 600 mg PO Q8H PRN 02/15/19 08/13/21 History Montelukast Sodium [Singulair] 10 mg PO HS 02/15/19 08/13/21 History amLODIPine BESYLATE 10 mg PO DAILY 02/15/19 08/13/21 History hydroCHLOROthiazide [Hydrodiuril] 25 mg PO DAILY 02/15/19 08/13/21 History metFORMIN HCL [metFORMIN HCL ER] 750 mg PO HS 02/15/19 08/13/21 History traMADol HCL 50 - 100 mg PO TID 07/03/19 08/13/21 History Omeprazole 20 mg PO DAILY 10/18/20 08/13/21 History lisinopriL [Zestril] 10 mg PO DAILY 10/18/20 08/13/21 History Acetaminophen [Tylenol 8 Hour] 1,300 mg PO BID 05/19/21 08/13/21 History Ergocalciferol [Vitamin D2 (1250 1,250 mcg PO Q30D 05/19/21 08/13/21 History Mcg = 39195 Iu)] Citalopram Hydrobromide [CeleXA] 20 mg PO DAILY 08/13/21 08/13/21 History Fish Oil 1200mg W/Vitamin D3 50mcg 2 cap PO HS 08/13/21 08/13/21 History Ibuprofen [Advil] 400 mg PO BID 08/13/21 08/13/21 History Multivitamin [Multivitamins Adult 2 tab PO HS 08/13/21 08/13/21 History Gummies] Allergies Allergy/AdvReac Type Severity Reaction Status Date / Time latex Allergy REDNESS Verified 08/13/21 09:51 eye dilating drop AdvReac jaw locked Uncoded 08/13/21 09:51 Physical Exam Vitals: Vital Signs Temp Pulse Resp BP Pulse Ox 08/13/21 09:26 87 20 142/87 96 08/13/21 07:26 97.8 F 93 18 134/84 98 Intake and Output 08/12/21 08/13/21 08/13/21 22:59 06:59 14:59 Other: Voiding Method Toilet Weight 150.593 kg Results CBC & Chem 7: 08/13/21 07:57 08/13/21 07:57 Labs: Abnormal Lab Results - Last 24 Hours (Table) 08/13/21 08/13/21 08/13/21 Range/Units 07:57 07:57 07:57 Hgb 12.9 L (13.0-17.5) gm/dL Sodium 134 L (137-145) mmol/L Glucose 327 H (74-99) mg/dL Plasma Lactic Acid Pierre 3.0 H* (0.7-2.0) mmol/L Lipase 409 H (23-300) U/L
--- NOTE | 2021-08-13 13:35 | XR ---
EXAMINATION TYPE: XR abdomen 1V DATE OF EXAM: 08/13/2021 12:54 PM CLINICAL HISTORY: Pain and diarrhea TECHNIQUE: Two Upright KUB images of the abdomen are obtained. COMPARISON: CT abdomen and pelvis earlier today. FINDINGS: Some paucity of bowel gas. Gas seen in nondistended stomach. Scattered gas seen in nondiste nded small and large bowel loops. Surgical change in the mid lumbar spine redemonstrated. Underlying scoliosis with multilevel spurring in the spine redemonstrated. Prominent liver and spleen redemonstr ated. Cardiomegaly again seen. No free air. IMPRESSION: Overall nonspecific favor nonobstructive bowel gas pattern. Hepatosplenomegaly redemonstrated.
[2021-08-13 14:59] LABS: Glucose,Whole Blood 255 mg/dL (75-99)
[2021-08-13] MEDS: traMADol 50 MG TAB PO SCH ×3 (16:07→21:18)
[2021-08-13] MEDS ORDERED: SODIUM CHLORIDE 0.9% 1,000 ML IV ONE ×2 (16:51→21:09)
[2021-08-13 17:32] LABS: Glucose,Whole Blood 164 mg/dL (75-99)
[2021-08-13] MEDS: INSULIN ASPART (NovoLOG) 100 UNIT/ML VIAL SQ SCH ×2 (18:05→21:17)
[2021-08-13] MEDS: SODIUM CHLORIDE 0.9% 1,000 ML IV SCH (19:23)
[2021-08-13 20:52] LABS: Glucose,Whole Blood 199 mg/dL (75-99)
[2021-08-13] MEDS: HEPARIN SODIUM,PORCINE/PF 5,000 UNIT/0.5 ML SYRINGE SQ SCH (21:17)
[2021-08-13] MEDS: ATORVASTATIN 20 MG TAB PO SCH (21:18)
[2021-08-13] MEDS: MONTELUKAST 10 MG TAB PO SCH (21:18)
[2021-08-13] MEDS: IOPAMIDOL CONTRAST (ORAL USE) VIAL PO PRN ×2 (22:15→23:08)
--- NOTE | 2021-08-14 00:20 | CT ---
EXAMINATION TYPE: CT abdomen pelvis wo con DATE OF EXAM: 08/14/2021 COMPARISON: Today HISTORY: generalized abdominal pain. prior on PACS CT DLP: 1662.80 mGycm Automated exposure control for dose reduction was used. Images obtained from the diaphragm to the floor the pelvis with oral contrast only. Lung bases are clear. There is no pleural effusion. Heart size is fairly normal. There is no pericard ial effusion. Liver spleen stomach pancreas gallbladder appear intact. The bile ducts are not dilated. There is no adrenal mass. Kidneys have normal size and contour. There is no hydronephrosis. Ureters a re not dilated. There is no retroperitoneal adenopathy. Bladder distends smoothly. There is no inguinal hernia. There is no mesenteric edema. There is no ascites or free air. There is no bowel obstruction. Appendi x appears normal. The lumbar vertebra have fairly normal alignment. There is moderate spinal stenosis at L3-4. There is multilevel facet arthropathy in the lumbar spine. There is no compression fracture. IMPRESSION: There are bilateral renal parapelvic cysts. No hydronephrosis. Normal appendix. No acute abnormality of the abdomen pelvis. No adverse change. Hepatomegaly. Liver measures 27 cm. L3-4 bony spinal stenosis.
[2021-08-14] MEDS: SODIUM CHLORIDE 0.9% 1,000 ML IV SCH ×2 (01:58→13:36)
[2021-08-14 07:47] LABS: Glucose,Whole Blood 192 mg/dL (75-99)
[2021-08-14] MEDS: INSULIN ASPART (NovoLOG) 100 UNIT/ML VIAL SQ SCH ×4 (08:13→20:53)
[2021-08-14] MEDS: HEPARIN SODIUM,PORCINE/PF 5,000 UNIT/0.5 ML SYRINGE SQ SCH ×2 (08:15→20:54)
[2021-08-14] MEDS: amLODIPine 10 MG TAB PO SCH (08:15)
[2021-08-14] MEDS: hydroCHLOROthiazide 25 MG TAB PO SCH (08:15)
[2021-08-14] MEDS: CITALOPRAM HYDROBROMIDE 20 MG TAB PO SCH (08:16)
[2021-08-14] MEDS: ASPIRIN 81 MG PO SCH (08:16)
[2021-08-14] MEDS: traMADol 50 MG TAB PO SCH ×3 (08:16→20:54)
[2021-08-14] MEDS: lisinopriL 10 MG TAB PO SCH (08:17)
[2021-08-14 09:54] VITALS: BMI 48.3
--- NOTE | 2021-08-14 11:24 | P.PN ---
Subjective Progress Note Date: 08/14/21 History of present illness 60 years old male of Dr. Segura with past medical history of predi abetes according to patient, osteoarthritis comes in with acute on chronic diarrhea that is happening for 4 months intermittently. For the past 4 days patient having multiple episodes of diarrhea associated with left lower quadrant of abdominal pain. He denies any blood in his stools, denies any history of melanoma. Patient denies any fever or chills. He does have history of diverticulitis in the past. He denies any use of new antibiotics or Protonix. Patient denies any sick contact. He discussed his symptoms with the primary care physician but since his symptoms got worse he decided to come to the emergency room. Vitals are stable patient afebrile pulse 93 respiratory rate 18 blood pressure 1:30/84 oxygen saturation 98% on room air. Labs are reviewed WBC is 8.1 hemoglobin 12.9 sodium 134 creatinine 0.92 BUN 17 lactic acid on admission was 3 glucose 327 and lipase 49. Patient came in with similar symptoms a day before and a CAT scan of abdomen and pelvis was done with IV cont rast only CT abdomen and pelvis on 08/13 suggest with hepatomegaly fatty infiltration of the liver appendix could not be visualized no sign of acute abdomen or pelvis was seen L3-L4 lumbar spinal stenosis was noted. Finding was done with IV contrast only normal with contrast was infused. Patient will be initiated on levofloxacin 500 every every 24 hours and metronidazole 500 IV every 8 hours. We'll culture will be obtained. C. diff will be obtained. ESR and CRP obtained. CT abdomen was negative for pneumoperitoneum. Abdominal x-ray will be obtained today. 08/14 patient evaluated at bedside. Continues to have left upper quadrant abdominal pain. Patient denies any fever or chills or any episodes of diarrhea since hospitalization. Patient's lactic acid continues to remain elevated. Metformin discontinued due to lactic acidosis. Repeat computed tomography scan of abdomen with oral contrast were obtained but no abdominal etiology was noted. Patient does have hepatomegaly and L3-L4 spinal stenosis. Vitals are stable temperature 97.8, 78 respiratory rate 20 blood pressure 138/82 stat labs including CBC, CMP 7 and CRP ordered. If no improvement patient's abdominal pain but consult with general surgery for recommendations. ROS Constitutional: Denies chills, Denies fever, Denies lethargy, Denies malaise, Denies poor appetite, Denies weakness, Denies weight loss Eyes: denies decreased vision, denies diplopia, denies discharge, denies pain Ears: deny: decreased hearing Ears, nose, mouth and throat: Denies dental pain, Denies headache, Denies nasal discharge, Denies nose pain Cardiovascular: Denies chest pain, Denies decreased exercise tolerance, Denies edema, Denies high blood pressure, Denies irregular heart beat, Denies palpitations, Denies paroxysmal nocturnal dyspnea, Denies rapid heart beat, Denies shortness of breath Respiratory: Denies congestion, Denies cough, Denies cough with sputum, Denies dyspnea, Denies home oxygen, Denies wheezing Gastrointestinal:Endorses abdominal pain, diarrhea resolved, Denies coffee ground emesis, Denies early satiety, Denies excessive gas, Denies heartburn, Denies hematemesis, Denies hematochezia, Denies loss of appetite, Denies nausea, Denies vomiting Genitourinary: Denies dysuria, Denies flank pain, Denies kidney stones, Denies menorrhagia, Denies urgency, Denies urinary frequency Musculoskeletal: Denies gait dysfunction, Denies limitation of motion, Denies morning stiffness, Denies muscle cramps Integumentary: Denies rash, Denies wounds, Denies brittle nails, Denies change in hair/nails, Denies darkening of skin Neurological: Denies balance difficulties, Denies change in speech, Denies double vision, Denies gait dysfunction, Denies loss of vision, Denies motor disturbance, Denies numbness, Denies paralysis, Denies paresthesias, Denies seizures Psychiatric: Denies anxiety, Denies depression Endocrine: Denies excessive sweating, Denies excessive thirst, Denies high blood sugars, Denies palpitations Hematologic/Lymphatic: Denies easy bruising, Denies lymphadenopathy Physical exam - Constitutional General appearance: cooperative, no acute distress, obese - EENT Eyes: anicteric sclerae, PERRLA, normal appearance ENT: hearing grossly normal - Neck Neck: no lymphadenopathy, normal ROM, no other, no rigidity, no stridor, no thyromegaly - Respiratory Respiratory: bilateral: CTA, negative: diminished, dullness, rales, rhonchi - Cardiovascular Rhythm: regular Heart sounds: normal: S1, S2 Abnormal Heart Sounds: no systolic murmur, no diastolic murmur, no rub, no S3 Gallop, no S4 Gallop, no click, no other - Gastrointestinal General gastrointestinal: normal bowel sounds, soft, Tender in the left upper and lower quadrant no rebound no guarding - Integumentary Integumentary: no rash - Neurologic Neurologic:Motor or sensory deficits - Musculoskeletal Musculoskeletal: gait normal, strength equal bilaterally - Psychiatric Psychiatric: A&O x's 3, appropriate affect Assessment and plan Acute abdominal pain with diarrhea likely secondary to diverticulitis - Continue IV fluids at 75 mL per hour -Diet advanced to heart healthy diet - Levofloxacin 500 mg IV daily and metronidazole 500 IV to 8 hours - stool culture and C. diff could not be obtained - Abdominal x-ray nonspecific nonobstructive bowel pattern - CT abdomen with oral contrast on 08/13 revealed no sign of pneumoperitoneum or acute abdomen. - If no improvement in pain, surgery will be consulted for possible colonoscopy - Pain control with morphine 4 mg IV every 6 hours - Hold Toradol Lactic acidosis likely secondary to metformin - Status post 3 L of IV fluid continue normal saline at 75 mL per hour - Discontinue metformin - Ischemic colitis ruled out on CT abdomen - If no improvement we'll consult with surgery Hyperglycemia, type 2 diabetes with diabetic neuropathy - HbA1c ordered - Insulin sliding scale - Hold metformin - Diabetic diet - Diabetic education - Continue gabapentin at 600 every 8 Hypertension - Continue Norvasc at 10 mg by mouth daily - Continue lisinopril 10 mg daily Acute anemia -GI bleed unlikely - Fecal occult ordered - Iron studies ordered - Likely due to dilutional continue continue to monitor daily CBC Hyperlipidemia - continue Lipitor 20 mg by mouth daily Anxiety and depression - Continue citalopram at 20 mg daily Disposition patient will need 1-2 inpatient nights for stabilization DVT prophylaxis with heparin every 12 GI prophylaxis with omeprazole. CODE STATUS full code Objective - Vital Signs Vital signs: Vital Signs Temp 97.8 F 08/14/21 04:45 Pulse 78 08/14/21 04:45 Resp 20 08/14/21 04:45 BP 138/82 08/14/21 04:45 Pulse Ox 95 08/14/21 04:45 Intake & Output 08/13/21 08/14/21 08/14/21 18:59 06:59 18:59 Intake Total 200 Balance 200 Weight 150.593 kg Intake: Oral 200 Other: Voiding Method Toilet Toilet # Voids 0 2 - Labs CBC & Chem 7: 08/13/21 07:57 08/13/21 07:57 Labs: Abnormal Lab Results - Last 24 Hours (Table) 08/13/21 08/13/21 08/13/21 Range/Units 14:57 15:51 17:31 POC Glucose (mg/dL) 255 H 164 H (75-99) mg/dL Plasma Lactic Acid Pierre 3.0 H* (0.7-2.0) mmol/L 08/13/21 08/13/21 08/13/21 Range/Units 19:04 20:42 21:59 POC Glucose (mg/dL) 199 H (75-99) mg/dL Plasma Lactic Acid Pierre 3.5 H* 3.1 H* (0.7-2.0) mmol/L 08/14/21 08/14/21 08/14/21 Range/Units 02:04 06:48 07:45 POC Glucose (mg/dL) 192 H (75-99) mg/dL Plasma Lactic Acid Pierre 2.5 H* 3.0 H* (0.7-2.0) mmol/L
[2021-08-14 12:15] LABS: Basophils % (A) 0 %; Eosinophils # (A) 0.1 k/uL (0-0.7); Eosinophils % (A) 2 %; HCT 39.1 % (39.0-53.0); HGB 13.2 gm/dL (13.0-17.5); Lymphocytes # (A) 1.9 k/uL (1.0-4.8); Lymphocytes % (A) 24 %; MCH 28.8 pg (25.0-35.0); MCHC 33.8 g/dL (31.0-37.0); Mean Platelet Volume 7.7; Monocytes # (A) 0.3 k/uL (0-1.0); Monocytes % (A) 4 %; Neutrophils # (A) 5.6 k/uL (1.3-7.7); Neutrophils % (A) 70 %; Platelet Count 247 k/uL (150-450); RDW 13.7 % (11.5-15.5); WBC 8.1 k/uL (3.8-10.6)
[2021-08-14 12:27] LABS: ALT 36 U/L (4-49); AST 43 U/L (17-59); African American GFR (CKD) >90 (>60 ml/min/1.73 sqM); Albumin 4.1 g/dL (3.5-5.0); Albumin/Globulin Ratio 1.4; Alkaline Phosphatase 67 U/L (38-126); Anion Gap 9 mmol/L; Blood Urea Nitrogen 7 mg/dL (9-20); C Reactive Protein 0.8 mg/dL (<1.0); Calcium 8.9 mg/dL (8.4-10.2); Carbon Dioxide 24 mmol/L (22-30); Chloride 98 mmol/L (98-107); Glucose 194 mg/dL (74-99); Non-African American GFR(CKD) >90 (>60 ml/min/1.73 sqM); Potassium 3.9 mmol/L (3.5-5.1); Sodium 131 mmol/L (137-145); Total Bilirubin 0.6 mg/dL (0.2-1.3); Total Protein 7.1 g/dL (6.3-8.2)
[2021-08-14 13:09] LABS: Glucose,Whole Blood 156 mg/dL (75-99)
[2021-08-14 13:20] LABS: Erythrocyte Sedimentation Rate 18 mm/hr (0-15)
[2021-08-14 17:28] LABS: Glucose,Whole Blood 171 mg/dL (75-99)
[2021-08-14 20:16] LABS: Glucose,Whole Blood 198 mg/dL (75-99)
[2021-08-14] MEDS: MONTELUKAST 10 MG TAB PO SCH (20:54)
[2021-08-14] MEDS: ATORVASTATIN 20 MG TAB PO SCH (20:54)
--- NOTE | 2021-08-14 21:40 | CT ---
EXAMINATION TYPE: CT abdomen pelvis w con DATE OF EXAM: 08/14/2021 COMPARISON: Yesterday HISTORY: abdominal pain, diarrhea CT DLP: 2360.8 mGycm Automated exposure control for dose reduction was used. CONTRAST: Performed with IV Contrast, patient injected with 100 mL of Isovue 300. Lung bases are clear. There is no pleural effusion. Heart size is normal. There is no pericardial eff usion. There is fatty infiltration of the liver. Liver measures 27 cm in length. Spleen is intact. Th ere is no pancreatic mass. Stomach is intact. Gallbladder gallbladder is distended. The bile ducts ar e not dilated. Gallbladder measures 4.5 cm in diameter. There is no adrenal mass. Kidneys show bilateral parapelvic cysts. There is no hydronephrosis. There is no retroperitoneal adenopathy. Bladder distends smoothly. There is no mesenteric edema. There is no ascites or free air. There is no bowel obstruction. Lumbar vertebra have normal alignment. There is L3-4 bony spinal stenosis. IMPRESSION: Hepatomegaly without change. L3-4 bony spinal stenosis. No acute abnormality of the abdomen pelvis. L arge gallbladder consistent with gallbladder dysfunction without change.
[2021-08-15] MEDS: SODIUM CHLORIDE 0.9% 1,000 ML IV SCH (06:59)
[2021-08-15 07:05] LABS: Glucose,Whole Blood 186 mg/dL (75-99)
[2021-08-15] MEDS: INSULIN ASPART (NovoLOG) 100 UNIT/ML VIAL SQ SCH ×2 (09:04→13:21)
[2021-08-15] MEDS: hydroCHLOROthiazide 25 MG TAB PO SCH (09:05)
[2021-08-15] MEDS: lisinopriL 10 MG TAB PO SCH (09:06)
[2021-08-15] MEDS: traMADol 50 MG TAB PO SCH (09:06)
[2021-08-15] MEDS: ASPIRIN 81 MG PO SCH (09:06)
[2021-08-15] MEDS: HEPARIN SODIUM,PORCINE/PF 5,000 UNIT/0.5 ML SYRINGE SQ SCH (09:07)
[2021-08-15] MEDS: CITALOPRAM HYDROBROMIDE 20 MG TAB PO SCH (09:07)
[2021-08-15] MEDS: amLODIPine 10 MG TAB PO SCH (09:07)
--- NOTE | 2021-08-15 09:52 | P.GSCN ---
History of Present Illness Consult date: 08/15/21 History of present illness: Patient was sitting on phone refused to answer to multiple attempts to speak to him. He just waved his hand at me to leave. Therefore I was unable to complete exam or history. I will be signing off secondary to patient refusal to see me. If further concern for surgical process continues I suggest finding another surgeon. Past Medical History Past Medical History: Osteoarthritis (OA) Additional Past Medical History / Comment(s): Torn meniscus right knee; Vertigo; Lower back pain. Pre-diabetic History of Any Multi-Drug Resistant Organisms: None Reported Additional Past Surgical History / Comment(s): Varicocele Past Anesthesia/Blood Transfusion Reactions: Family History of Problems w/ Anesthesia Additional Past Anesthesia/Blood Transfusion Reaction / Comm: BROTHERS HAD REACTION, UNSURE WHAT. Past Psychological History: No Psychological Hx Reported Smoking Status: Never smoker Past Alcohol Use History: Occasional, Rare Additional Past Alcohol Use History / Comment(s): SMOKED AGE 17 FOR 3 MONTHS. Past Drug Use History: None Reported - Past Family History Father Brother(s) Family Medical History: Cancer Sister(s) Family Medical History: Deep Vein Thrombosis (DVT) Medications and Allergies Home Medications Medication Instructions Recorded Confirmed Type Aspirin [Adult Low Dose Aspirin EC] 81 mg PO DAILY 02/15/19 08/13/21 History Atorvastatin [Lipitor] 20 mg PO HS 02/15/19 08/13/21 History Gabapentin [Neurontin] 600 mg PO Q8H PRN 02/15/19 08/13/21 History Montelukast Sodium [Singulair] 10 mg PO HS 02/15/19 08/13/21 History amLODIPine BESYLATE 10 mg PO DAILY 02/15/19 08/13/21 History hydroCHLOROthiazide [Hydrodiuril] 25 mg PO DAILY 02/15/19 08/13/21 History metFORMIN HCL [metFORMIN HCL ER] 750 mg PO HS 02/15/19 08/13/21 History traMADol HCL 50 - 100 mg PO TID 07/03/19 08/13/21 History Omeprazole 20 mg PO DAILY 10/18/20 08/13/21 History lisinopriL [Zestril] 10 mg PO DAILY 10/18/20 08/13/21 History Acetaminophen [Tylenol 8 Hour] 1,300 mg PO BID 05/19/21 08/13/21 History Ergocalciferol [Vitamin D2 (1250 1,250 mcg PO Q30D 05/19/21 08/13/21 History Mcg = 46636 Iu)] Citalopram Hydrobromide [CeleXA] 20 mg PO DAILY 08/13/21 08/13/21 History Fish Oil 1200mg W/Vitamin D3 50mcg 2 cap PO HS 08/13/21 08/13/21 History Ibuprofen [Advil] 400 mg PO BID 08/13/21 08/13/21 History Multivitamin [Multivitamins Adult 2 tab PO HS 08/13/21 08/13/21 History Gummies] Allergies Allergy/AdvReac Type Severity Reaction Status Date / Time latex Allergy REDNESS Verified 08/13/21 09:51 eye dilating drop AdvReac jaw locked Uncoded 08/13/21 09:51 Surgical - Exam Osteopathic Statement: *. No significant issues noted on an osteopathic structural exam other than those noted in the History and Physical/Consult. Vital Signs Temp Pulse Resp BP Pulse Ox 97.8 F 93 18 134/84 98 08/13/21 07:26 08/13/21 07:26 08/13/21 07:26 08/13/21 07:26 08/13/21 07:26 Results - Labs 08/14/21 12:02 08/14/21 12:02 Abnormal Lab Results - Last 24 Hours (Table) 08/14/21 08/14/21 08/14/21 Range/Units 06:48 12:02 12:02 ESR 18 H (0-15) mm/hr Sodium 131 L (137-145) mmol/L BUN 7 L (9-20) mg/dL Creatinine 0.56 L (0.66-1.25) mg/dL Glucose 194 H (74-99) mg/dL POC Glucose (mg/dL) (75-99) mg/dL Hemoglobin A1c 10.9 H (4.0-6.0) % Plasma Lactic Acid Pierre (0.7-2.0) mmol/L 08/14/21 08/14/21 08/14/21 Range/Units 12:02 13:07 14:42 ESR (0-15) mm/hr Sodium (137-145) mmol/L BUN (9-20) mg/dL Creatinine (0.66-1.25) mg/dL Glucose (74-99) mg/dL POC Glucose (mg/dL) 156 H (75-99) mg/dL Hemoglobin A1c (4.0-6.0) % Plasma Lactic Acid Pierre 3.2 H* 3.4 H* (0.7-2.0) mmol/L 08/14/21 08/14/21 08/14/21 Range/Units 17:17 17:26 20:14 ESR (0-15) mm/hr Sodium (137-145) mmol/L BUN (9-20) mg/dL Creatinine (0.66-1.25) mg/dL Glucose (74-99) mg/dL POC Glucose (mg/dL) 171 H 198 H (75-99) mg/dL Hemoglobin A1c (4.0-6.0) % Plasma Lactic Acid Pierre 2.2 H* (0.7-2.0) mmol/L 08/14/21 08/15/21 Range/Units 21:15 07:04 ESR (0-15) mm/hr Sodium (137-145) mmol/L BUN (9-20) mg/dL Creatinine (0.66-1.25) mg/dL Glucose (74-99) mg/dL POC Glucose (mg/dL) 186 H (75-99) mg/dL Hemoglobin A1c (4.0-6.0) % Plasma Lactic Acid Pierre 2.4 H* (0.7-2.0) mmol/L Diabetes panel 08/14/21 08/14/21 Range/Units 06:48 12:02 Sodium 131 L (137-145) mmol/L Potassium 3.9 (3.5-5.1) mmol/L Chloride 98 (98-107) mmol/L Carbon Dioxide 24 (22-30) mmol/L BUN 7 L (9-20) mg/dL Creatinine 0.56 L (0.66-1.25) mg/dL Glucose 194 H (74-99) mg/dL Hemoglobin A1c 10.9 H (4.0-6.0) % Calcium 8.9 (8.4-10.2) mg/dL AST 43 (17-59) U/L ALT 36 (4-49) U/L Alkaline Phosphatase 67 (38-126) U/L Total Protein 7.1 (6.3-8.2) g/dL Albumin 4.1 (3.5-5.0) g/dL Calcium panel 08/14/21 Range/Units 12:02 Calcium 8.9 (8.4-10.2) mg/dL Albumin 4.1 (3.5-5.0) g/dL Pituitary panel 08/14/21 Range/Units 12:02 Sodium 131 L (137-145) mmol/L Potassium 3.9 (3.5-5.1) mmol/L Chloride 98 (98-107) mmol/L Carbon Dioxide 24 (22-30) mmol/L BUN 7 L (9-20) mg/dL Creatinine 0.56 L (0.66-1.25) mg/dL Glucose 194 H (74-99) mg/dL Calcium 8.9 (8.4-10.2) mg/dL Adrenal panel 08/14/21 Range/Units 12:02 Sodium 131 L (137-145) mmol/L Potassium 3.9 (3.5-5.1) mmol/L Chloride 98 (98-107) mmol/L Carbon Dioxide 24 (22-30) mmol/L BUN 7 L (9-20) mg/dL Creatinine 0.56 L (0.66-1.25) mg/dL Glucose 194 H (74-99) mg/dL Calcium 8.9 (8.4-10.2) mg/dL Total Bilirubin 0.6 (0.2-1.3) mg/dL AST 43 (17-59) U/L ALT 36 (4-49) U/L Alkaline Phosphatase 67 (38-126) U/L Total Protein 7.1 (6.3-8.2) g/dL Albumin 4.1 (3.5-5.0) g/dL
[2021-08-15 11:46] LABS: Glucose,Whole Blood 199 mg/dL (75-99)
[2021-08-15 11:52] VITALS: BP 113/70; PULSE 85; RESP 16; TEMP 97.9
[2021-08-15] MEDS ORDERED: INSULIN DETEMIR (LEVEMIR) 100 UNIT/ML SYR SQ SCH (13:30)
--- NOTE | 2021-08-15 15:49 | P.DS ---
Providers Date of admission: 08/13/21 09:17 Attending physician: Abhinav Francois MD Consults: 08/14/21 15:25 Consult Physician Routine Consulting Provider: Pavel Callejas Consult Reason/Comments: lactic acidosis, abdominal pain Do you want consulting provider notified?: Yes Primary care physician: Jacob Segura [facility] Course: History of present illness 60 years old male of Dr. Segura with past medical history of prediabetes according to patient, osteoarthritis comes in with acute on chronic diarrhea that is happening for 4 months intermittently. For the past 4 days patient having multiple episodes of diarrhea associated with left lower quadrant of abdominal pain. He denies any blood in his stools, denies any history of melanoma. Patient denies any fever or chills. He does have history of diverticulitis in the past. He denies any use of new antibiotics or Protonix. Patient denies any sick contact. He discussed his symptoms with the primary care physician but since his symptoms got worse he decided to come to the emergency room. Vitals are stable patient afebrile pulse 93 respiratory rate 18 blood pressure 1:30/84 oxygen saturation 98% on room air. Labs are reviewed WBC is 8.1 hemoglobin 12.9 sodium 134 creatinine 0.92 BUN 17 lactic acid on admission was 3 glucose 327 and lipase 49. Patient came in with similar symptoms a day before and a CAT scan of abdomen and pelvis was done with IV contrast only CT abdomen and pelvis on 08/13 suggest with hepatomegaly fatty infiltration of the liver appendix could not be visualized no sign of acute abdomen or pelvis was seen L3-L4 lumbar spinal stenosis was noted. Finding was done with IV contrast only normal with contrast was infused. Patient will be initiated on levofloxacin 500 every every 24 hours and metro nidazole 500 IV every 8 hours. We'll culture will be obtained. C. diff will be obtained. ESR and CRP obtained. CT abdomen was negative for pneumoperitoneum. Abdominal x-ray will be obtained today. 08/14 patient evaluated at bedside. Continues to have left upper quadrant abdominal pain. Patient denies any fever or chills or any episodes of diarrhea since hospitalization. Patient's lactic acid continues to remain elevated. Metformin discontinued due to lactic acidosis. Repeat computed tomography scan of abdomen with oral contrast were obtained but no abdominal etiology was noted. Patient does have hepatomegaly and L3-L4 spinal stenosis. Vitals are stable temperature 97.8, 78 respiratory rate 20 blood pressure 138/82 stat labs including CBC, CMP 7 and CRP ordered. If no improvement patient's abdominal pain but consult with general surgery for recommendations. 08/15 patient evaluated bedside. Diarrhea is improved. Continues to have left lower abdominal pain. No hernia was reported. Patient had persistent lactic acidosis for which another CT angiogram was obtained by surgery. No ischemic colitis noted. Patient refused to be evaluated by surgeon and hence physical ex amination could not be completed by them. Patient denies any fever or chills. HbA1c was found to be 10.6 today. Patient to be initiated on Lantus 25 units daily. Diabetic education will be provided to the patient. Patient instructed to follow-up carb consistent diet. Metformin discontinued due to lactic acidosis. Actos initiated to 50 mg by mouth daily. Patient will follow with Dr. Cruz as outpatient ROS Constitutional: Denies chills, Denies fever, Denies lethargy, Denies malaise, Denies poor appetite, Denies weakness, Denies weight loss Eyes: denies decreased vision, denies diplopia, denies discharge, denies pain Ears: deny: decreased hearing Ears, nose, mouth and throat: Denies dental pain, Denies headache, Denies nasal discharge, Denies nose pain Cardiovascular: Denies chest pain, Denies decreased exercise tolerance, Denies edema, Denies high blood pressure, Denies irregular heart beat, Denies palpitations, Denies paroxysmal nocturnal dyspnea, Denies rapid heart beat, Darnell es shortness of breath Respiratory: Denies congestion, Denies cough, Denies cough with sputum, Denies dyspnea, Denies home oxygen, Denies wheezing Gastrointestinal:Endorses abdominal pain improved, diarrhea resolved, Denies coffee ground emesis, Denies early satiety, Denies excessive gas, Denies heartburn, Denies hematemesis, Denies hematochezia, Denies loss of appetite, Denies nausea, Denies vomiting Genitourinary: Denies dysuria, Denies flank pain, Denies kidney stones, Denies menorrhagia, Denies urgency, Denies urinary frequency Musculoskeletal: Denies gait dysfunction, Denies limitation of motion, Denies morning stiffness, Denies muscle cramps Integumentary: Denies rash, Denies wounds, Denies brittle nails, Denies change in hair/nails, Denies darkening of skin Physical exam - Constitutional General appearance: cooperative, no acute distress, obese - EENT Eyes: anicteric sclerae, PERRLA, normal appearance ENT: hearing grossly normal - Neck Neck: no lymphadenopathy, normal ROM, no other, no rigidity, no stridor, no thyromegaly - Respiratory Respiratory: bilateral: CTA, negative: diminished, dullness, rales, rhonchi - Cardiovascular Rhythm: regular Heart sounds: normal: S1, S2 Abnormal Heart Sounds: no systolic murmur, no diastolic murmur, no rub, no S3 Gallop, no S4 Gallop, no click, no other - Gastrointestinal General gastrointestinal: normal bowel sounds, soft, mildly mildly tender at left lower quadrant - Integumentary Integumentary: no rash - Neurologic Neurologic:Motor or sensory deficits - Musculoskeletal Musculoskeletal: gait normal, strength equal bilaterally - Psychiatric Psychiatric: A&O x's 3, appropriate affect Assessment and plan Acute abdominal pain with diarrhea likely gastroenteritis. Colitis ruled out -C. diff negative - No need for antibiotics Lactic acidosis likely secondary to metformin - CT abdomen with oral contrast, CT angiogram consistently negative Controlled type 2 diabetes with diabetic neuropathy - HbA1c 10.5 -Lantus initiated at 25 units daily - Hold metformin - Diabetic diet - Diabetic education - Continue gabapentin at 600 every 8 Hypertension - Continue Norvasc at 10 mg by mouth daily - Continue lisinopril 10 mg daily Acute anemia - Likely due to dilutional continue continue to monitor daily CBC Hyperlipidemia - continue Lipitor 20 mg by mouth daily Anxiety and depression - Continue citalopram at 20 mg daily Disposition home with self-care More than 30 minutes was spent in making patient's assessment and plan and counseling the patient on diabetic care Patient Condition at Discharge: Stable Plan - Discharge Summary Discharge Rx Participant: No New Discharge Prescriptions: New Pioglitazone [Actos] 15 mg PO DAILY #30 tab Insulin Glargine,Hum.rec.anlog [Lantus Solostar Pen] 25 unit SQ DAILY #3 each Continue amLODIPine BESYLATE 10 mg PO DAILY Atorvastatin [Lipitor] 20 mg PO HS Gabapentin [Neurontin] 600 mg PO Q8H PRN PRN Reason: Pain hydroCHLOROthiazide [Hydrodiuril] 25 mg PO DAILY Montelukast Sodium [Singulair] 10 mg PO HS Aspirin [Adult Low Dose Aspirin EC] 81 mg PO DAILY traMADol HCL 50 - 100 mg PO TID lisinopriL [Zestril] 10 mg PO DAILY Omeprazole 20 mg PO DAILY Citalopram Hydrobromide [CeleXA] 20 mg PO DAILY Multivitamin [Multivitamins Adult Gummies] 2 tab PO HS Ergocalciferol [Vitamin D2 (1250 Mcg = 94364 Iu)] 1,250 mcg PO Q30D Acetaminophen [Tylenol 8 Hour] 1,300 mg PO BID Fish Oil 1200mg W/Vitamin D3 50mcg 2 cap PO HS Ibuprofen [Advil] 400 mg PO BID Discontinued metFORMIN HCL [metFORMIN HCL ER] 750 mg PO HS Discharge Medication List Aspirin [Adult Low Dose Aspirin EC] 81 mg PO DAILY 02/15/19 [History] Atorvastatin [Lipitor] 20 mg PO HS 02/15/19 [History] Gabapentin [Neurontin] 600 mg PO Q8H PRN 02/15/19 [History] Montelukast Sodium [Singulair] 10 mg PO HS 02/15/19 [History] amLODIPine BESYLATE 10 mg PO DAILY 02/15/19 [History] hydroCHLOROthiazide [Hydrodiuril] 25 mg PO DAILY 02/15/19 [History] traMADol HCL 50 - 100 mg PO TID 07/03/19 [History] Omeprazole 20 mg PO DAILY 10/18/20 [History] lisinopriL [Zestril] 10 mg PO DAILY 10/18/20 [History] Acetaminophen [Tylenol 8 Hour] 1,300 mg PO BID 05/19/21 [History] Ergocalciferol [Vitamin D2 (1250 Mcg = 02920 Iu)] 1,250 mcg PO Q30D 05/19/21 [History] Citalopram Hydrobromide [CeleXA] 20 mg PO DAILY 08/13/21 [History] Fish Oil 1200mg W/Vitamin D3 50mcg 2 cap PO HS 08/13/21 [History] Ibuprofen [Advil] 400 mg PO BID 08/13/21 [History] Multivitamin [Multivitamins Adult Gummies] 2 tab PO HS 08/13/21 [History] Insulin Glargine,Hum.rec.anlog [Lantus Solostar Pen] 25 unit SQ DAILY #3 each 08/15/21 [Rx] Pioglitazone [Actos] 15 mg PO DAILY #30 tab 08/15/21 [Rx] Follow up Appointment(s)/Referral(s): Jacob Segura MD [Primary Care Provider] - 1-2 days (Patient will need to make own appt. Office is closed at time of discharge. ) Patient Instructions/Handouts: Pioglitazone (By mouth), Insulin Glargine (By i njection), Type 2 Diabetes in Adults: New Diagnosis (DC), Diabetic Hyperglycemia (DC) Activity/Diet/Wound Care/Special Instructions: Monitor Blood Glucose level before meals and at bedtime. Keep a log of blood sugars and take it to your follow-up appt. Please ask Primary Care Physician to supply new glucometer and test strips. Discharge Disposition: HOME SELF-CARE
== END 2021-08-15 14:54 | disposition home or self-care (01) | DRG 392 ==
LOC: EC 07:24 → 5NMEDONC 09:17
PROVIDERS: ADMIT Internal Medicine; ATTEND Internal Medicine
DX: K52.9 Noninfective gastroenteritis and colitis, unspecified (principal); E87.2 Acidosis; Z68.42 Body mass index [BMI] 45.0-49.9, adult; R16.0 Hepatomegaly, not elsewhere classified; E11.40 Type 2 diabetes mellitus with diabetic neuropathy, unspecified; D64.9 Anemia, unspecified; E11.65 Type 2 diabetes mellitus with hyperglycemia; K76.0 Fatty (change of) liver, not elsewhere classified; E66.9 Obesity, unspecified; T38.3X5A Adverse effect of insulin and oral hypoglycemic [antidiabetic] drugs, initial encounter; I10 Essential (primary) hypertension; E86.0 Dehydration; E78.5 Hyperlipidemia, unspecified; F32.A Depression, unspecified; F41.9 Anxiety disorder, unspecified; M54.50 Low back pain, unspecified; H91.90 Unspecified hearing loss, unspecified ear; M48.061 Spinal stenosis, lumbar region without neurogenic claudication; M19.90 Unspecified osteoarthritis, unspecified site; Z79.82 Long term (current) use of aspirin; Z79.84 Long term (current) use of oral hypoglycemic drugs; Z79.891 Long term (current) use of opiate analgesic; Z79.899 Other long term (current) drug therapy; Z87.39 Personal history of other diseases of the musculoskeletal system and connective tissue; Z87.438 Personal history of other diseases of male genital organs; Z87.19 Personal history of other diseases of the digestive system; Z71.3 Dietary counseling and surveillance; Z98.890 Other specified postprocedural states; Z88.8 Allergy status to other drugs, medicaments and biological substances; Z91.040 Latex allergy status; Z83.2 Family history of diseases of the blood and blood-forming organs and certain disorders involving the immune mechanism; Z82.5 Family history of asthma and other chronic lower respiratory diseases; Z82.3 Family history of stroke; Z80.8 Family history of malignant neoplasm of other organs or systems; Z81.8 Family history of other mental and behavioral disorders
CPT/HCPCS: 36415; 74018; 74176; 74177; 80053; 83036; 83605; 83690; 85025; 85652; 86140; 87324; 96374; 99285

== ENCOUNTER 2021-08-16 17:47 | Emergency (ER) | payer OTHER ==
[2021-08-16 21:24] VITALS: BP 110/65; PULSE 94; RESP 18; TEMP 98.3
[2021-08-16 21:26] LABS: Glucose,Whole Blood 191 mg/dL (75-99)
--- NOTE | 2021-08-16 21:29 | ED ---
General Adult HPI - General Stated complaint: high blood sugar Time Seen by Provider: 08/16/21 21:19 - History of Present Illness Initial comments: 60 year-old male patient presents to the emergency department for evaluation of elevated blood glucose. He was diagnosed with new-onset diabetes a couple of days ago had a 3 day admission to the hospital and then was discharged. He was started on Lantus. He is uncomfortable taking it until he has a working home glucose meter. States he is coming in today to ensure that his meter is in working order and to learn how to use it. Denies nausea or vomiting. Reports dizziness. Denies headaches, blurred vision, or double vision. Reports diarrhea. Denies hematochezia or melena. No fevers. - Related Data Home Medications Medication Instructions Recorded Confirmed Aspirin [Adult Low Dose Aspirin EC] 81 mg PO DAILY 02/15/19 08/13/21 Atorvastatin [Lipitor] 20 mg PO HS 02/15/19 08/13/21 Gabapentin [Neurontin] 600 mg PO Q8H PRN 02/15/19 08/13/21 Montelukast Sodium [Singulair] 10 mg PO HS 02/15/19 08/13/21 amLODIPine BESYLATE 10 mg PO DAILY 02/15/19 08/13/21 hydroCHLOROthiazide [Hydrodiuril] 25 mg PO DAILY 02/15/19 08/13/21 traMADol HCL 50 - 100 mg PO TID 07/03/19 08/13/21 Omeprazole 20 mg PO DAILY 10/18/20 08/13/21 lisinopriL [Zestril] 10 mg PO DAILY 10/18/20 08/13/21 Acetaminophen [Tylenol 8 Hour] 1,300 mg PO BID 05/19/21 08/13/21 Ergocalciferol [Vitamin D2 (1250 1,250 mcg PO Q30D 05/19/21 08/13/21 Mcg = 98968 Iu)] Citalopram Hydrobromide [CeleXA] 20 mg PO DAILY 08/13/21 08/13/21 Fish Oil 1200mg W/Vitamin D3 50mcg 2 cap PO HS 08/13/21 08/13/21 Ibuprofen [Advil] 400 mg PO BID 08/13/21 08/13/21 Multivitamin [Multivitamins Adult 2 tab PO HS 08/13/21 08/13/21 Gummies] Previous Rx's Medication Instructions Recorded Insulin Glargine,Hum.rec.anlog 25 unit SQ DAILY #3 each 08/15/21 [Lantus Solostar Pen] [place], Insulin Disposable [Bd 1 needle SQ DIRECTED #30 each 08/15/21 Ultra-Fine Pen Needle 4mm 32g] Pioglitazone [Actos] 15 mg PO DAILY #30 tab 08/15/21 Allergies Allergy/AdvReac Type Severity Reaction Status Date / Time latex Allergy REDNESS Verified 08/16/21 21:24 eye dilating drop AdvReac jaw locked Uncoded 08/16/21 21:24 Review of Systems ROS Statement: Those systems with pertinent positive or pertinent negative responses have been documented in the HPI. ROS Other: All systems not noted in ROS Statement are negative. Past Medical History Past Medical History: Osteoarthritis (OA) Additional Past Medical History / Comment(s): Torn meniscus right knee; Vertigo; Lower back pain. Pre-diabetic History of Any Multi-Drug Resistant Organisms: None Reported Additional Past Surgical History / Comment(s): Varicocele Past Anesthesia/Blood Transfusion Reactions: Family History of Problems w/ Anesthesia Additional Past Anesthesia/Blood Transfusion Reaction / Comment(s): BROTHERS HAD REACTION, UNSURE WHAT. Past Psychological History: No Psychological Hx Reported Smoking Status: Never smoker Past Alcohol Use History: Occasional, Rare Additional Past Alcohol Use History / Comment(s): SMOKED AGE 17 FOR 3 MONTHS. Past Drug Use History: None Reported - Past Family History Father Brother(s) Family Medical History: Cancer Sister(s) Family Medical History: Deep Vein Thrombosis (DVT) General Exam General appearance: alert, in no apparent distress, other (This is a well- developed, well-nourished adult male in no acute distress.) Respiratory exam: Present: normal lung sounds bilaterally. Absent: respiratory distress, wheezes, rales, rhonchi, stridor Cardiovascular Exam: Present: regular rate, normal rhythm, normal heart sounds. Absent: systolic murmur, diastolic murmur, rubs, gallop, clicks GI/Abdominal exam: Present: soft, normal bowel sounds. Absent: distended, tenderness, guarding, rebound, rigid Neurological exam: Present: alert, oriented X3, CN II-XII intact Psychiatric exam: Present: normal affect, normal mood Skin exam: Present: warm, dry, intact, normal color. Absent: rash Course Vital Signs 08/16/21 21:19 Temperature 98.3 F Pulse Rate 94 Respiratory 18 Rate Blood Pressure 110/65 O2 Sat by Pulse 96 Oximetry Medical Decision Making - Medical Decision Making 60-year-old male patient presents to ensure that his blood glucose meter is working and to learn how to use it. He is a newly diagnosed type II diabetic. I did obtain blood glucose in triage was 191. Obtain a blood glucose with his home meter showed 180. History of are . I did teach him how to use the machine. He is instructed to obtain new strips for this. He does have a new meter coming 08/25/21. He is instructed to follow-up with his primary care physician as soon as possible. Return parameters were discussed in detail. He verbalizes understanding and agrees with this plan. My attending is Dr. Stallworth. - Lab Data Lab Results 08/16/21 Range/Units 21:24 POC Glucose (mg/dL) 191 H (75-99) mg/dL POC Glu Cattle Tester ID Nadeen Fowler Disposition Clinical Impression: High blood sugar Disposition: HOME SELF-CARE Condition: Good Instructions (If sedation given, give patient instructions): Type 2 Diabetes in Adults: New Diagnosis (ED) Additional Instructions: Obtain new strips or new meter from the pharmacy. Follow diet. Follow up with your primary care physician for recheck in 1-2 days. Is patient prescribed a controlled substance at d/c from ED?: No Referrals: Jacob Segura MD [Primary Care Provider] - 1-2 days Time of Disposition: 21:29
== END 2021-08-16 21:47 | disposition home or self-care (01) ==
LOC: EC 17:47
DX: E11.9 Type 2 diabetes mellitus without complications (principal); M19.90 Unspecified osteoarthritis, unspecified site; Z72.89 Other problems related to lifestyle; Z79.4 Long term (current) use of insulin
CPT/HCPCS: 36415; 99284

== ENCOUNTER 2021-11-10 10:36 | Emergency (ER) | payer OTHER ==
[2021-11-10 11:30] VITALS: RESP 18; TEMP 97.9
[2021-11-10] MEDS ORDERED: ACETAMINOPHEN TAB 500 MG TAB PO STA (12:32)
--- NOTE | 2021-11-10 14:59 | XR ---
EXAMINATION TYPE: XR pelvis AP view DATE OF EXAM: 11/10/2021 COMPARISON: 05/20/2021 HISTORY: Fall, pain TECHNIQUE: AP pelvis FINDINGS: Femoral heads articulate with the acetabulum. No acute fracture or dislocation is evident. Sacroiliac joints and symphysis pubis are patent. Osteoma the medial left symphysis pubis may be pres ent. IMPRESSION: 1. No acute fractures AP pelvis
--- NOTE | 2021-11-10 15:04 | XR ---
EXAMINATION TYPE: XR shoulder complete LT DATE OF EXAM: 11/10/2021 COMPARISON: NONE HISTORY: Pain TECHNIQUE: Shoulder examined in 3 views FINDINGS: The humeral head articulates with the glenoid. Acromial humeral space is somewhat narrowed. No elevat ion within the glenoid is evident. The acromio-clavicular junction has some spurring compatible with mild degenerative change. No definite acute fractures are identified. There is some lucency within the humeral head on the sagi ttal plane images. Occult fracture could be considered. CT could be performed if additional evaluatio n would be of benefit. A follow up study can be performed 7-10 days from acute trauma for continued pain. IMPRESSION: 1. No displaced fractures identified. Occult fracture within the dorsal humeral neck could be conside red potentially present. Follow-up study or CT could be performed.
--- NOTE | 2021-11-10 15:06 | XR ---
EXAMINATION TYPE: XR knee complete LT DATE OF EXAM: 11/10/2021 COMPARISON: 03/08/2016 HISTORY: Pain, fall TECHNIQUE: 3 view left knee FINDINGS: There is progression of the loss of the medial compartment joint space. Medial femoral cond ylar and medial femoral plateau spurring is now evident. Milder spurring is present lateral compartme nt. Lateral compartment joint space appears preserved. Patellofemoral joint space changes are progres sive. Increasing spurring from the distal femur and from the posterior patella are evident. No acute fractures are evident. Follow-up studies can be performed 7-10 days from acute trauma for co ntinued pain. No joint effusion is evident. IMPRESSION: 1. Progressive moderate degenerative changes medial compartment left knee and mild degenerative ortiz ges lateral compartment left knee.
--- NOTE | 2021-11-10 15:09 | CT ---
EXAMINATION TYPE: CT Cerv Thoracic spine wo con DATE OF EXAM: 11/10/2021 COMPARISON: CT dated 05/19/2021 HISTORY: slip and fall CT DLP: 3528.2 mGycm Automated exposure control for dose reduction was used. TECHNIQUE: Multiplanar CT scan of the cervical and thoracic spine without IV contrast administration. FINDINGS: Cervical spine: No definite vertebral body collapse or acute displaced fracture. Unremarkable atlantoaxial and atlant ooccipital articulations. Fused C4 and C5 vertebrae, appreciated previously. Advanced degenerative ch anges of the cervical spine most evident at C4-5, C5-6 and C6-7 levels. Persistent multilevel central spinal canal stenosis and neuroforaminal stenosis. No paraspinal lesion. Thoracic spine: Osteopenia. Good alignment without significant anterolisthesis or retrolisthesis. No definite vertebr al body collapse or acute displaced fracture. Advanced degenerative changes of the thoracic spine wit h opposing endplate osteophytosis, degenerative discs and multilevel facet osteoarthropathy. No obvio us bony spinal canal stenosis. Multilevel neural foraminal stenosis most evident at the left T2-3 lev el. Scattered arterial atherosclerotic calcifications. No paraspinal lesion. IMPRESSION: No evidence for acute traumatic bony injury of the cervical or the thoracic spine. Incidental finding s as described above.
--- NOTE | 2021-11-10 16:32 | ED ---
General Adult HPI <Damien Pedraza - Last Filed: 11/10/21 16:49> - General Source: patient, family, RN notes reviewed, old records reviewed Mode of arrival: ambulatory Limitations: no limitations <Yariel Bryant - Last Filed: 11/10/21 17:44> - General Chief complaint: Fall Stated complaint: fall on ice, lt leg injury Time Seen by Provider: 11/10/21 12:32 - History of Present Illness Initial comments: Patient is a 61-year-old male with past medical history remarkable for arthritis, vertigo, lower back surgery who presents emergency Department following a fall. Patient was walking down a ramp with his walker slipped and fell onto his back. Is currently complaining of mid back pain, left shoulder pain, left knee pain, left hip pain. Isn't on blood thinners. No loss consciousness. He presents emergency Department multiple hours after the fall over concern for traumatic injury.Patient ambulated following the fall, and drove himself to the hospital. (Yariel Bryant) - Related Data Home Medications Medication Instructions Recorded Confirmed Aspirin [Adult Low Dose Aspirin EC] 81 mg PO DAILY 02/15/19 11/10/21 Atorvastatin [Lipitor] 20 mg PO DAILY 02/15/19 11/10/21 Gabapentin [Neurontin] 600 mg PO Q8H PRN 02/15/19 11/10/21 Montelukast Sodium [Singulair] 10 mg PO HS 02/15/19 11/10/21 amLODIPine BESYLATE 10 mg PO DAILY 02/15/19 11/10/21 hydroCHLOROthiazide [Hydrodiuril] 25 mg PO DAILY 02/15/19 11/10/21 traMADol HCL 50 mg PO DAILY 07/03/19 11/10/21 Omeprazole 20 mg PO DAILY 10/18/20 11/10/21 lisinopriL [Zestril] 10 mg PO DAILY 10/18/20 11/10/21 Acetaminophen [Tylenol 8 Hour] 1,300 mg PO BID 05/19/21 11/10/21 Ergocalciferol [Vitamin D2 (1250 1,250 mcg PO Q30D 05/19/21 11/10/21 Mcg = 85902 Iu)] Citalopram Hydrobromide [CeleXA] 20 mg PO DAILY 08/13/21 11/10/21 Ibuprofen [Advil] 400 mg PO BID 08/13/21 11/10/21 Multivitamin [Multivitamins Adult 1 tab PO DAILY 08/13/21 11/10/21 Gummies] [place]-3 Fatty Acids/Fish Oil [Fish 1 cap PO DAILY 11/10/21 11/10/21 Oil 1,000 mg Softgel] Pioglitazone [Actos] 30 mg PO DAILY 11/10/21 11/10/21 metFORMIN HCL [Glucophage XR] 750 mg PO W/SUPPER 11/10/21 11/10/21 Previous Rx's Medication Instructions Recorded Insulin Glargine,Hum.rec.anlog 25 unit SQ DAILY #3 each 08/15/21 [Lantus Solostar Pen] Allergies Allergy/AdvReac Type Severity Reaction Status Date / Time latex Allergy REDNESS Verified 11/10/21 13:08 eye dilating drop AdvReac jaw locked Uncoded 11/10/21 11:30 Review of Systems ROS Other: All systems not noted in ROS Statement are negative. <Damien Pedraza - Last Filed: 11/10/21 16:49> ROS Other: All systems not noted in ROS Statement are negative. <Yariel Bryant - Last Filed: 11/10/21 17:44> ROS Statement: Those systems with pertinent positive or pertinent negative responses have been documented in the HPI. Review of Systems: CONST: Denies fever EYES: Denies blurry vision ENT: Denies nasal congestion C/V: Denies Chest pain RESP: Denies shortness of breath GI: Denies abdominal pain : Denies dysuria SKIN: Denies rash. MSK: Endorses joint pain NEURO: Denies headache (Yariel Bryant) Past Medical History Past Medical History: Osteoarthritis (OA) Additional Past Medical History / Comment(s): Torn meniscus right knee; Vertigo; Lower back pain. Pre-diabetic History of Any Multi-Drug Resistant Organisms: None Reported Additional Past Surgical History / Comment(s): Varicocele Past Anesthesia/Blood Transfusion Reactions: Family History of Problems w/ Anesthesia Additional Past Anesthesia/Blood Transfusion Reaction / Comment(s): BROTHERS HAD REACTION, UNSURE WHAT. Past Psychological History: No Psychological Hx Reported Smoking Status: Never smoker Past Alcohol Use History: Occasional, Rare Past Drug Use History: None Reported - Past Family History Father Brother(s) Family Medical History: Cancer Sister(s) Family Medical History: Deep Vein Thrombosis (DVT) <Yariel Bryant - Last Filed: 11/10/21 17:44> General Exam Limitations: no limitations <Yariel Bryant - Last Filed: 11/10/21 17:44> - General Exam Comments Initial Comments: General: Appears in no acute distress. HEAD: Normal with no signs of head trauma. No step-offs or deformities of the skull. Negative Blakely sign. Negative raccoon eyes. EYES: PERRLA, EOMI, conjunctiva normal, no discharge. Pupils are 3 mm equal bilaterally. ENT: Hearing grossly intact, normal oropharynx. RESPIRATORY: Clear breath sounds bilaterally. No wheezes, rales, or rhonchi. C/V: Regular rate and rhythm. S1 and S2 auscultated, no edema, peripheral pulses 2+ and intact throughout ABD: Abd is soft, nontender, nondistended EXT: Midline mid thoracic spine tenderness palpation. No obvious lumbar or cer vical spine tenderness palpation midline. Some mild left paraspinal muscle tightness to palpation over the left neck. Patient does have left shoulder tenderness to palpation primarily over the superior aspect of the shoulder. No obvious humeral tenderness to palpation of the left shoulder. Some mild left hip tenderness to palpation as well as left knee tenderness to palpation. Full range of motion otherwise. No obvious deformities. SKIN: No rashes or lesions observed on exposed skin. NEURO: Alert and oriented x 4. Cranial nerves II-XII intact. No focal sensory or strength deficits. GCS is 15. Patient ambulates with walker baseline, he was able to do so. (Yariel Bryant) Course Vital Signs 11/10/21 11/10/21 11:26 16:57 Temperature 97.9 F Pulse Rate 90 84 Respiratory 18 18 Rate Blood Pressure 123/65 124/63 O2 Sat by Pulse 97 98 Oximetry Medical Decision Making <Damien Pedraza - Last Filed: 11/10/21 16:49> <Yariel Bryant - Last Filed: 11/10/21 17:44> - Medical Decision Making Ears and attending by previous shift physician, Dr. Bryant. Briefly, patient is 61-year-old male presents to the emergency department after a fall. Plan at sign out was to follow-up with pending CT imaging of the upper extremity to rule out occult fracture of the humerus. CT image shows no fracture identified to the humerus. There does appear to be arthritis. Reevaluated at bedside at 4:51 PM. Patient stable is in no acute distress. Patient will be discharged. (Damien Pedraza) Based on the patient's presentation and physical exam, I'm concerned for acute bony traumatic injury the patient. We will obtain CT imaging of the cervical an thoracic spine as well as left shoulder x-ray, pelvis x-ray, knee x-ray. He'll be provided with Tylenol. Refuses any other analgesia. He was in agreement t his plan. The x-ray showed no acute injury. There are degenerative changes present. Pelvic x-ray revealed no acute process. Spinal in the cervical and thoracic spine revealed no acute injuries. Shoulder injury revealed a possible occult fracture within the dorsal humeral neck. Recommend follow-up CT. I did update the patient regarding these findings. He was in agreement with follow-up CT. Refuses any further analgesia at this time. At this time as the admission. Patient was signed out to the [facility] emergency department physician, Dr. Pedraza. Disposition is pending results of CT imaging. (Yariel Bryant) Disposition Is patient prescribed a controlled substance at d/c from ED?: No <Damien Pedraza - Last Filed: 11/10/21 16:49> Is patient prescribed a controlled substance at d/c from ED?: No <Yariel Bryant - Last Filed: 11/10/21 17:44> Clinical Impression: Fall Disposition: HOME SELF-CARE Condition: Good Instructions (If sedation given, give patient instructions): Fall Prevention for Older Adults (ED) Referrals: Jacob Segura MD [Primary Care Provider] - 1-2 days
--- NOTE | 2021-11-10 16:45 | CT ---
EXAMINATION TYPE: CT upper extremity LT wo con DATE OF EXAM: 11/10/2021 COMPARISON: No previous CT scan is available for comparison. X-ray performed earlier same day HISTORY: Fall on ice, shoulder pain. CT DLP: 1320.6 mGycm Automated exposure control for dose reduction was used. TECHNIQUE: Multiplanar CT scan of the left shoulder without IV contrast administration. 3-D reconstru ction images were performed and reviewed. FINDINGS: No definite left shoulder or proximal humeral fracture identified. Degenerative changes of the acromi oclavicular joint with inferior acromial osteophytosis. Milder degenerative changes of the glenohumer al articulation. Osteophytosis of the humeral head, likely degenerative. No humeral head dislocation or significant subluxation. Reduced acromiohumeral distance which could b e related to chronic rotator cuff tear. Suspected cardiomegaly. Groundglass opacities in the left sherri g, probably augmented by the expiratory exposure. IMPRESSION: No definite left shoulder or left proximal humeral fracture identified. Incidental findings as descri bed above.
[2021-11-10 17:05] VITALS: BP 124/63; PULSE 84
== END 2021-11-10 17:05 | disposition home or self-care (01) ==
LOC: EC 10:36
DX: M54.6 Pain in thoracic spine (principal); M25.512 Pain in left shoulder; M25.562 Pain in left knee; M25.552 Pain in left hip; M19.90 Unspecified osteoarthritis, unspecified site; W01.0XXA Fall on same level from slipping, tripping and stumbling without subsequent striking against object, initial encounter; Y93.01 Activity, walking, marching and hiking
CPT/HCPCS: 72125; 72128; 72170; 99284

== ENCOUNTER 2022-03-29 09:53 | Emergency (ER) | payer OTHER ==
[2022-03-29] MEDS ORDERED: SODIUM CHLORIDE 0.9% 500 ML 500 ML IV STA (11:02)
--- NOTE | 2022-03-29 11:29 | ED ---
General Adult HPI - General Chief complaint: Upper Respiratory Infection Stated complaint: leg lac not healing/coughing up blood Time Seen by Provider: 03/29/22 10:46 Source: patient Mode of arrival: ambulatory Limitations: no limitations - History of Present Illness Initial comments: Patient is a 61-year-old male with history of diabetes and hypertension presenting with chief complaint of cough. Patient states that for the last week he has been experiencing a cough and pleuritic chest pain. Patient states that after coughing it feels like someone has "punched me in the chest". Patient states that cough has been dry. States that he can't go several hours without having a coughing fit. Denies fever, chills, nausea, vomiting, diaphoresis, radiation of pain down the arms or the neck, radiation of pain to the back, abdominal pain, diarrhea, sore throat, ear pain, sinus pain, flank pain. Patient also states that he has a wound to the left lower leg that he is concerned about. Patient scratched his leg on 03/26, is worried about the wound healing properly. - Related Data Home Medications Medication Instructions Recorded Confirmed Aspirin [Adult Low Dose Aspirin EC] 81 mg PO DAILY 02/15/19 11/10/21 Atorvastatin [Lipitor] 20 mg PO DAILY 02/15/19 11/10/21 Gabapentin [Neurontin] 600 mg PO Q8H PRN 02/15/19 11/10/21 Montelukast Sodium [Singulair] 10 mg PO HS 02/15/19 11/10/21 amLODIPine BESYLATE 10 mg PO DAILY 02/15/19 11/10/21 hydroCHLOROthiazide [Hydrodiuril] 25 mg PO DAILY 02/15/19 11/10/21 traMADol HCL 50 mg PO DAILY 07/03/19 11/10/21 Omeprazole 20 mg PO DAILY 10/18/20 11/10/21 lisinopriL [Zestril] 10 mg PO DAILY 10/18/20 11/10/21 Acetaminophen [Tylenol 8 Hour] 1,300 mg PO BID 05/19/21 11/10/21 Ergocalciferol [Vitamin D2 (1250 1,250 mcg PO Q30D 05/19/21 11/10/21 Mcg = 97692 Iu)] Citalopram Hydrobromide [CeleXA] 20 mg PO DAILY 08/13/21 11/10/21 Ibuprofen [Advil] 400 mg PO BID 08/13/21 11/10/21 Multivitamin [Multivitamins Adult 1 tab PO DAILY 08/13/21 11/10/21 Gummies] [place]-3 Fatty Acids/Fish Oil [Fish 1 cap PO DAILY 11/10/21 11/10/21 Oil 1,000 mg Softgel] Pioglitazone [Actos] 30 mg PO DAILY 11/10/21 11/10/21 metFORMIN HCL [Glucophage XR] 750 mg PO W/SUPPER 11/10/21 11/10/21 Previous Rx's Medication Instructions Recorded Insulin Glargine,Hum.rec.anlog 25 unit SQ DAILY #3 each 08/15/21 [Lantus Solostar Pen] Benzonatate [Tessalon Perles] 100 mg PO TID PRN #20 capsule 03/29/22 Allergies Allergy/AdvReac Type Severity Reaction Status Date / Time latex Allergy REDNESS Verified 03/29/22 10:44 eye dilating drop AdvReac jaw locked Uncoded 03/29/22 10:44 Review of Systems ROS Statement: Those systems with pertinent positive or pertinent negative responses have been documented in the HPI. ROS Other: All systems not noted in ROS Statement are negative. Past Medical History Past Medical History: Diabetes Mellitus, Hypertension, Osteoarthritis (OA) Additional Past Medical History / Comment(s): Torn meniscus right knee; Vertigo; Lower back pain. Pre-diabetic History of Any Multi-Drug Resistant Organisms: None Reported Additional Past Surgical History / Comment(s): Varicocele Past Anesthesia/Blood Transfusion Reactions: Family History of Problems w/ Anesthesia Additional Past Anesthesia/Blood Transfusion Reaction / Comment(s): BROTHERS HAD REACTION, UNSURE WHAT. Past Psychological History: No Psychological Hx Reported Smoking Status: Never smoker Past Alcohol Use History: Occasional, Rare Past Drug Use History: None Reported - Past Family History Father Brother(s) Family Medical History: Cancer Sister(s) Family Medical History: Deep Vein Thrombosis (DVT) General Exam Limitations: no limitations General appearance: alert, in no apparent distress Head exam: Present: atraumatic, normocephalic, normal inspection Eye exam: Present: normal appearance, EOMI. Absent: scleral icterus, periorbital swelling Neck exam: Present: normal inspection Respiratory exam: Present: normal lung sounds bilaterally. Absent: respiratory distress, wheezes, rales, rhonchi, stridor Cardiovascular Exam: Present: regular rate, normal rhythm, normal heart sounds. Absent: systolic murmur, diastolic murmur, rubs, gallop, clicks Extremities exam: Present: normal inspection, full ROM, other (Healed wound to the left lower leg). Absent: tenderness Neurological exam: Present: alert, oriented X3, CN II-XII intact Psychiatric exam: Present: normal affect, normal mood Skin exam: Present: warm, dry, intact, normal color. Absent: rash Course Vital Signs 03/29/22 03/29/22 03/29/22 10:37 11:30 13:20 Temperature 98.1 F 98.4 F Pulse Rate 92 83 Respiratory 18 24 24 Rate Blood Pressure 120/68 127/80 O2 Sat by Pulse 98 97 Oximetry EKG Findings - EKG Comments: EKG Findings:: Sinus rhythm rate of 85. Right bundle branch block. IL interval 140. QRS duration 144. QTC 435. This EKG was also shown to and interpreted by my attending Dr. Evans Medical Decision Making - Medical Decision Making Patient is a 61-year-old male presenting with chief complaint of cough. Patient states that been present for the last week. After coughing patient experiences pain in the center of his chest. Patient is also concerned about a scratch to the left lower leg, stating he wants to make sure it's healing properly. On examination her lungs are clear to auscultation, there is some chest wall tenderness on palpation. CBC, PT/INR, electrolytes are WNL. Troponin is WNL. Glucose is 148. Patient is negative for coronavirus and influenza. Chest x-ray shows no acute process. Patient appears stable for discharge with outpatient follow-up at this time. He is given a prescription for Tessalon Perles. Follow-up with PCP in one to 2 days. Report back to ER with any new or worsening symptoms. Discussed return parameters answered all questions. Patient conveyed verbal understanding and agreed to the plan. I discussed this case with my attending Dr. Evans - Lab Data Result diagrams: 03/29/22 11:34 03/29/22 11:34 Lab Results 03/29/22 03/29/22 03/29/22 Range/Units 11:34 11:34 11:34 WBC 7.6 (3.8-10.6) k/uL RBC 4.74 (4.30-5.90) m/uL Hgb 14.0 (13.0-17.5) gm/dL Hct 41.8 (39.0-53.0) % MCV 88.2 (80.0-100.0) fL MCH 29.6 (25.0-35.0) pg MCHC 33.6 (31.0-37.0) g/dL RDW 14.4 (11.5-15.5) % Plt Count 256 (150-450) k/uL MPV 8.0 Neutrophils % 65 % Lymphocytes % 25 % Monocytes % 5 % Eosinophils % 3 % Basophils % 1 % Neutrophils # 5.0 (1.3-7.7) k/uL Lymphocytes # 1.9 (1.0-4.8) k/uL Monocytes # 0.4 (0-1.0) k/uL Eosinophils # 0.2 (0-0.7) k/uL Basophils # 0.1 (0-0.2) k/uL PT 11.3 (9.0-12.0) sec INR 1.0 (<1.2) APTT 25.1 (22.0-30.0) sec Sodium 139 (137-145) mmol/L Potassium 4.1 (3.5-5.1) mmol/L Chloride 100 (98-107) mmol/L Carbon Dioxide 25 (22-30) mmol/L Anion Gap 14 mmol/L BUN 10 (9-20) mg/dL Creatinine 0.65 L (0.66-1.25) mg/dL Est GFR (CKD-EPI)AfAm >90 (>60 ml/min/1.73 sqM) Est GFR (CKD-EPI)NonAf >90 (>60 ml/min/1.73 sqM) Glucose 148 H (74-99) mg/dL Calcium 8.9 (8.4-10.2) mg/dL Magnesium 2.1 (1.6-2.3) mg/dL Total Bilirubin 0.5 (0.2-1.3) mg/dL AST 31 (17-59) U/L ALT 32 (4-49) U/L Alkaline Phosphatase 72 (38-126) U/L Troponin I (0.000-0.034) ng/mL Total Protein 7.5 (6.3-8.2) g/dL Albumin 4.5 (3.5-5.0) g/dL Coronavirus (PCR) (Not Detectd) Influenza Type A RNA (Not Detectd) Influenza Type B (PCR) (Not Detectd) 03/29/22 03/29/22 03/29/22 Range/Units 11:34 11:34 11:34 WBC (3.8-10.6) k/uL RBC (4.30-5.90) m/uL Hgb (13.0-17.5) gm/dL Hct (39.0-53.0) % MCV (80.0-100.0) fL MCH (25.0-35.0) pg MCHC (31.0-37.0) g/dL RDW (11.5-15.5) % Plt Count (150-450) k/uL MPV Neutrophils % % Lymphocytes % % Monocytes % % Eosinophils % % Basophils % % Neutrophils # (1.3-7.7) k/uL Lymphocytes # (1.0-4.8) k/uL Monocytes # (0-1.0) k/uL Eosinophils # (0-0.7) k/uL Basophils # (0-0.2) k/uL PT (9.0-12.0) sec INR (<1.2) APTT (22.0-30.0) sec Sodium (137-145) mmol/L Potassium (3.5-5.1) mmol/L Chloride (98-107) mmol/L Carbon Dioxide (22-30) mmol/L Anion Gap mmol/L BUN (9-20) mg/dL Creatinine (0.66-1.25) mg/dL Est GFR (CKD-EPI)AfAm (>60 ml/min/1.73 sqM) Est GFR (CKD-EPI)NonAf (>60 ml/min/1.73 sqM) Glucose (74-99) mg/dL Calcium (8.4-10.2) mg/dL Magnesium (1.6-2.3) mg/dL Total Bilirubin (0.2-1.3) mg/dL AST (17-59) U/L ALT (4-49) U/L Alkaline Phosphatase (38-126) U/L Troponin I <0.012 (0.000-0.034) ng/mL Total Protein (6.3-8.2) g/dL Albumin (3.5-5.0) g/dL Coronavirus (PCR) Not Detected (Not Detectd) Influenza Type A RNA Not Detected (Not Detectd) Influenza Type B (PCR) Not Detected (Not Detectd) Disposition Clinical Impression: Bronchospasm Disposition: HOME SELF-CARE Condition: Good Instructions (If sedation given, give patient instructions): Bronchospasm (ED) Additional Instructions: Follow-up with PCP in one to 2 days. Report back to ER with any new or worsening symptoms. Take medication as prescribed. Prescriptions: Benzonatate [Tessalon Perles] 100 mg PO TID PRN #20 capsule PRN Reason: Cough Is patient prescribed a controlled substance at d/c from ED?: No Referrals: Jacob Segura MD [Primary Care Provider] - 1-2 days Time of Disposition: 13:11
[2022-03-29 11:44] LABS: Basophils # (A) 0.1 k/uL (0-0.2); Basophils % (A) 1 %; Eosinophils # (A) 0.2 k/uL (0-0.7); Eosinophils % (A) 3 %; HCT 41.8 % (39.0-53.0); Lymphocytes # (A) 1.9 k/uL (1.0-4.8); Lymphocytes % (A) 25 %; MCH 29.6 pg (25.0-35.0); MCHC 33.6 g/dL (31.0-37.0); MCV 88.2 fL (80.0-100.0); Monocytes # (A) 0.4 k/uL (0-1.0); Monocytes % (A) 5 %; Neutrophils % (A) 65 %; Platelet Count 256 k/uL (150-450); RBC 4.74 m/uL (4.30-5.90); RDW 14.4 % (11.5-15.5); WBC 7.6 k/uL (3.8-10.6)
[2022-03-29 11:54] LABS: ALT 32 U/L (4-49); AST 31 U/L (17-59); African American GFR (CKD) >90 (>60 ml/min/1.73 sqM); Albumin 4.5 g/dL (3.5-5.0); Alkaline Phosphatase 72 U/L (38-126); Anion Gap 14 mmol/L; Blood Urea Nitrogen 10 mg/dL (9-20); Calcium 8.9 mg/dL (8.4-10.2); Carbon Dioxide 25 mmol/L (22-30); Chloride 100 mmol/L (98-107); Glucose 148 mg/dL (74-99); Magnesium 2.1 mg/dL (1.6-2.3); Non-African American GFR(CKD) >90 (>60 ml/min/1.73 sqM); Potassium 4.1 mmol/L (3.5-5.1); Sodium 139 mmol/L (137-145); Total Bilirubin 0.5 mg/dL (0.2-1.3); Total Protein 7.5 g/dL (6.3-8.2)
[2022-03-29 11:55] LABS: Partial Thromboplastin Time 25.1 sec (22.0-30.0); Prothrombin Time 11.3 sec (9.0-12.0)
[2022-03-29 11:57] VITALS: RESP 24
--- NOTE | 2022-03-29 12:03 | XR ---
EXAMINATION TYPE: XR chest 2V DATE OF EXAM: 03/29/2022 COMPARISON: 04/28/2021 HISTORY: Shortness of breath TECHNIQUE: Frontal and lateral views of the chest are obtained. FINDINGS: Scattered senescent parenchymal changes noted. Hyperinflation compatible with COPD. No evidence for infiltrate. No evidence for atelectasis. Heart size is stable. Mediastinal structures are stable and grossly unremarkable. No evidence for hilar prominence. Degenerative changes dorsal spine. IMPRESSION: 1. No evidence for acute pulmonary disease.
[2022-03-29 13:22] VITALS: BP 127/80; PULSE 83; TEMP 98.4
== END 2022-03-29 13:31 | disposition home or self-care (01) ==
LOC: EC 09:53
DX: J98.01 Acute bronchospasm (principal); Z20.822 Contact with and (suspected) exposure to COVID-19; E11.9 Type 2 diabetes mellitus without complications; I10 Essential (primary) hypertension; M19.90 Unspecified osteoarthritis, unspecified site; Z79.4 Long term (current) use of insulin; Z79.84 Long term (current) use of oral hypoglycemic drugs; Z79.82 Long term (current) use of aspirin; Z79.899 Other long term (current) drug therapy
CPT/HCPCS: 36415; 71046; 80053; 83735; 84484; 85025; 85610; 85730; 87502; 87635; 93005; 96360; 99284

== ENCOUNTER 2022-09-01 19:11 | Emergency (ER) | payer OTHER ==
[2022-09-01 19:24] VITALS: TEMP 97.9
--- NOTE | 2022-09-01 21:25 | ED ---
Recheck HPI - General Chief Complaint: Recheck/Abnormal Lab/Rx Stated Complaint: Swallowed piece of tooth filling Time Seen by Provider: 09/01/22 20:39 Source: patient, RN notes reviewed Mode of arrival: ambulatory Limitations: no limitations - History of Present Illness Initial Comments: This is a pleasant 62-year-old male with a history of diabetes mellitus and hypertension. He inadvertently swallowed one of his feelings earlier today. Patient was concerned about it not passing. Denying any choking. Denies any shortness of breath. Denies any vomiting. Denies any chest pain or abdominal pain. No headache, no fever or chills, no changes in vision or hearing, no sore throat or difficulty with speech, no neck pain, no chest pain or shortness of breath, no abdominal pain, no nausea or vomiting, no changes in urination or bowel movements, no numbness or tingling, no extremity pain, no skin rashes or lesions. Past medical, surgical, social, and family history reviewed. - Related Data Home Medications Medication Instructions Recorded Confirmed Aspirin [Adult Low Dose Aspirin EC] 81 mg PO DAILY 02/15/19 11/10/21 Atorvastatin [Lipitor] 20 mg PO DAILY 02/15/19 11/10/21 Gabapentin [Neurontin] 600 mg PO Q8H PRN 02/15/19 11/10/21 Montelukast Sodium [Singulair] 10 mg PO HS 02/15/19 11/10/21 amLODIPine BESYLATE 10 mg PO DAILY 02/15/19 11/10/21 hydroCHLOROthiazide [Hydrodiuril] 25 mg PO DAILY 02/15/19 11/10/21 traMADol HCL 50 mg PO DAILY 07/03/19 11/10/21 Omeprazole 20 mg PO DAILY 10/18/20 11/10/21 lisinopriL [Zestril] 10 mg PO DAILY 10/18/20 11/10/21 Acetaminophen [Tylenol 8 Hour] 1,300 mg PO BID 05/19/21 11/10/21 Ergocalciferol [Vitamin D2 (1250 1,250 mcg PO Q30D 05/19/21 11/10/21 Mcg = 70979 Iu)] Citalopram Hydrobromide [CeleXA] 20 mg PO DAILY 08/13/21 11/10/21 Ibuprofen [Advil] 400 mg PO BID 08/13/21 11/10/21 Multivitamin [Multivitamins Adult 1 tab PO DAILY 08/13/21 11/10/21 Gummies] [place]-3 Fatty Acids/Fish Oil [Fish 1 cap PO DAILY 11/10/21 11/10/21 Oil 1,000 mg Softgel] Pioglitazone [Actos] 30 mg PO DAILY 11/10/21 11/10/21 metFORMIN HCL [Glucophage XR] 750 mg PO W/SUPPER 11/10/21 11/10/21 Previous Rx's Medication Instructions Recorded Insulin Glargine,Hum.rec.anlog 25 unit SQ DAILY #3 each 08/15/21 [Lantus Solostar Pen] Benzonatate [Tessalon Perles] 100 mg PO TID PRN #20 capsule 03/29/22 Allergies Allergy/AdvReac Type Severity Reaction Status Date / Time latex Allergy REDNESS Verified 09/01/22 19:24 eye dilating drop AdvReac jaw locked Uncoded 09/01/22 19:24 Review of Systems ROS Statement: Those systems with pertinent positive or pertinent negative responses have been documented in the HPI. ROS Other: All systems not noted in ROS Statement are negative. Past Medical History Past Medical History: Diabetes Mellitus, Hypertension, Osteoarthritis (OA) Additional Past Medical History / Comment(s): Torn meniscus right knee; Vertigo; Lower back pain. Pre-diabetic History of Any Multi-Drug Resistant Organisms: None Reported Additional Past Surgical History / Comment(s): Varicocele Past Anesthesia/Blood Transfusion Reactions: Family History of Problems w/ Anesthesia Additional Past Anesthesia/Blood Transfusion Reaction / Comment(s): BROTHERS HAD REACTION, UNSURE WHAT. Past Psychological History: No Psychological Hx Reported Smoking Status: Never smoker Past Alcohol Use History: Occasional, Rare Past Drug Use History: None Reported - Past Family History Father Brother(s) Family Medical History: Cancer Sister(s) Family Medical History: Deep Vein Thrombosis (DVT) General Exam Limitations: no limitations General appearance: alert, in no apparent distress Head exam: Present: atraumatic, normocephalic, normal inspection Eye exam: Present: normal appearance, PERRL, EOMI. Absent: scleral icterus, conjunctival injection, periorbital swelling ENT exam: Present: normal exam, mucous membranes moist Neck exam: Present: normal inspection. Absent: tenderness, meningismus, lymphadenopathy Respiratory exam: Present: normal lung sounds bilaterally. Absent: respiratory distress, wheezes, rales, rhonchi, stridor Cardiovascular Exam: Present: regular rate, normal rhythm, normal heart sounds. Absent: systolic murmur, diastolic murmur, rubs, gallop, clicks GI/Abdominal exam: Present: soft, normal bowel sounds. Absent: distended, tenderness, guarding, rebound, rigid Extremities exam: Present: normal inspection, full ROM, normal capillary refill. Absent: tenderness, pedal edema, joint swelling, calf tenderness Back exam: Present: normal inspection Neurological exam: Present: alert, oriented X3, CN II-XII intact Psychiatric exam: Present: normal affect, normal mood Skin exam: Present: warm, dry, intact, normal color. Absent: rash Course Vital Signs 09/01/22 19:18 Temperature 97.9 F Pulse Rate 96 Respiratory 22 Rate Blood Pressure 130/68 O2 Sat by Pulse 96 Oximetry Medical Decision Making - Medical Decision Making Radiopaque foreign body appears to be past the pylorus. Patient in no distress. No evidence of abdominal pain or abdominal tenderness. Suspect this swallowed foreign body will just pass without incident. Discussed return and follow-up fremitus in detail with the patient. Patient concurs with the treatment plan. Patient was told to return to the ER for any signs or symptoms worsen. Told to return immediately if any other problems arise. All questions answered. Treatment plan discussed. Patient in agreement Every effort has been made to ensure accuracy of this dictation. However, due to the limitations of electronic medical records and dictation devices, errors in charting still occur. Supervising physician Dr. Tapia - Radiology Data Radiology results: pending, image reviewed Radiopaque foreign body consistent with size of a filling noted on abdominal x- ray independently interpreted by me. Appears be past the pylorus. Chest x-ray is unremarkable for acute pathology. Radiology report is delayed. Disposition Clinical Impression: Swallowed foreign body Disposition: HOME SELF-CARE Condition: Good Instructions (If sedation given, give patient instructions): Foreign Body Ingestion in Children (ED) Additional Instructions: Discharge instructions are for her child, although they are pretty much analogous for an adult. No specific adult instructions otherwise. Follow-up with your regular physician as directed. Return to the ER immediately if any symptoms worsen, new symptoms arise, or any other problems develop. Is patient prescribed a controlled substance at d/c from ED?: No Referrals: Jacob Segura MD [Primary Care Provider] - 1-2 days Time of Disposition: 21:25
[2022-09-01 21:38] VITALS: BP 142/76; PULSE 92; RESP 20
--- NOTE | 2022-09-01 22:04 | XR ---
EXAMINATION TYPE: XR KUB DATE OF EXAM: 09/01/2022 COMPARISON: None INDICATION: Swallowed foreign body piece of tooth filling TECHNIQUE: Single view abdomen FINDINGS: Radiopaque foreign body is adjacent to the left aspect of the L4 vertebral level on the upper abdomen may be the patient's to filling. Bowel gas appears normal. Psoas margins are normal. No organomegaly is present. IMPRESSION: 1. Radio opaque foreign body within the midabdomen
--- NOTE | 2022-09-01 22:05 | XR ---
EXAMINATION TYPE: XR chest 2V DATE OF EXAM: 09/01/2022 COMPARISON: 03/29/2022 INDICATION: TECHNIQUE: Frontal and lateral views of the chest are obtained. FINDINGS: The heart size is mildly prominent. The pulmonary vasculature is normal. The lungs are clear. IMPRESSION: 1. No acute pulmonary process.
== END 2022-09-01 21:38 | disposition home or self-care (01) ==
LOC: EC 19:11
DX: T18.9XXA Foreign body of alimentary tract, part unspecified, initial encounter (principal); I10 Essential (primary) hypertension; E11.9 Type 2 diabetes mellitus without complications; M19.90 Unspecified osteoarthritis, unspecified site; Z79.84 Long term (current) use of oral hypoglycemic drugs; Z79.4 Long term (current) use of insulin; Z79.899 Other long term (current) drug therapy; Z79.82 Long term (current) use of aspirin; Z91.040 Latex allergy status
CPT/HCPCS: 71046; 74018; 99283

== ENCOUNTER 2023-03-13 17:45 | Emergency (ER) | payer OTHER ==
[2023-03-13 18:29] LABS: Appearance,Urine Clear (Clear); Bilirubin,Urine Negative (Negative); Blood,Urine Negative (Negative); Color,Urine Yellow; Glucose,Urine (UA) Negative (Negative); Ketones,Urine Negative (Negative); Leukocyte Esterase,Urine Negative (Negative); Nitrite,Urine Negative (Negative); PH, Urine 7.5 (5.0-8.0); Protein,Urine Negative (Negative); Specific Gravity,Urine 1.018 (1.001-1.035)
[2023-03-13] MEDS ORDERED: KETOROLAC 15 MG/ML 1 ML VIAL IM STA (18:39)
--- NOTE | 2023-03-13 19:01 | ED ---
General Adult HPI - General Chief complaint: Urogenital Stated complaint: groin pain Time Seen by Provider: 03/13/23 17:55 Source: patient, RN notes reviewed, old records reviewed Mode of arrival: ambulatory - History of Present Illness Initial comments: This is a 62-year-old male who presents emergency department stating that 24 hours ago he was working in the backyard with a pulse ox when he turns and was possibly felt a pull in his right groin ever since then he's been having pain in his right groin down to his testicle. Patient denies any dysuria hematuria or urinary frequency. Patient denies any abdominal pain. Patient denies any flank pain. Patient states touching still is painful up into the groin area and he denies seeing any bulging or swelling in the area indicative of a hernia. Patient denies any previous similar episode. patient states the pain is almost gone when he lays on his left side he states it's worse with any Movement of the right leg. - Related Data Home Medications Medication Instructions Recorded Confirmed Aspirin [Adult Low Dose Aspirin EC] 81 mg PO DAILY 02/15/19 11/10/21 Atorvastatin [Lipitor] 20 mg PO DAILY 02/15/19 11/10/21 Gabapentin [Neurontin] 600 mg PO Q8H PRN 02/15/19 11/10/21 Montelukast Sodium [Singulair] 10 mg PO HS 02/15/19 11/10/21 amLODIPine BESYLATE 10 mg PO DAILY 02/15/19 11/10/21 hydroCHLOROthiazide [Hydrodiuril] 25 mg PO DAILY 02/15/19 11/10/21 traMADol HCL 50 mg PO DAILY 07/03/19 11/10/21 Omeprazole 20 mg PO DAILY 10/18/20 11/10/21 lisinopriL [Zestril] 10 mg PO DAILY 10/18/20 11/10/21 Acetaminophen [Tylenol 8 Hour] 1,300 mg PO BID 05/19/21 11/10/21 Ergocalciferol [Vitamin D2 (1250 1,250 mcg PO Q30D 05/19/21 11/10/21 Mcg = 45187 Iu)] Citalopram Hydrobromide [CeleXA] 20 mg PO DAILY 08/13/21 11/10/21 Ibuprofen [Advil] 400 mg PO BID 08/13/21 11/10/21 Multivitamin [Multivitamins Adult 1 tab PO DAILY 08/13/21 11/10/21 Gummies] [place]-3 Fatty Acids/Fish Oil [Fish 1 cap PO DAILY 11/10/21 11/10/21 Oil 1,000 mg Softgel] Pioglitazone [Actos] 30 mg PO DAILY 11/10/21 11/10/21 metFORMIN HCL [Glucophage XR] 750 mg PO W/SUPPER 11/10/21 11/10/21 Previous Rx's Medication Instructions Recorded Insulin Glargine,Hum.rec.anlog 25 unit SQ DAILY #3 each 08/15/21 [Lantus Solostar Pen] Benzonatate [Tessalon Perles] 100 mg PO TID PRN #20 capsule 03/29/22 Ketorolac [Toradol] 10 mg PO Q6HR #15 tab 03/13/23 Allergies Allergy/AdvReac Type Severity Reaction Status Date / Time latex Allergy REDNESS Verified 11/09/22 16:15 eye dilating drop AdvReac jaw locked Uncoded 03/13/23 17:49 Review of Systems ROS Statement: Those systems with pertinent positive or pertinent negative responses have been documented in the HPI. ROS Other: All systems not noted in ROS Statement are negative. Past Medical History Past Medical History: Diabetes Mellitus, Hypertension, Osteoarthritis (OA) Additional Past Medical History / Comment(s): Torn meniscus right knee; Vertigo; Lower back pain. Pre-diabetic History of Any Multi-Drug Resistant Organisms: None Reported Additional Past Surgical History / Comment(s): Varicocele Past Anesthesia/Blood Transfusion Reactions: Family History of Problems w/ Anesthesia Additional Past Anesthesia/Blood Transfusion Reaction / Comment(s): BROTHERS HAD REACTION, UNSURE WHAT. Past Psychological History: No Psychological Hx Reported Smoking Status: Never smoker Past Alcohol Use History: Occasional, Rare Past Drug Use History: None Reported - Past Family History Father Brother(s) Family Medical History: Cancer Sister(s) Family Medical History: Deep Vein Thrombosis (DVT) General Exam - General Exam Comments Initial Comments: GENERAL: Patient is well-developed and well-nourished. Patient is nontoxic and well- hydrated and is in mild distress. ENT: Neck is soft and supple. No significant lymphadenopathy is noted. Oropharynx is clear. Moist mucous membranes. Neck has full range of motion without eliciting any pain. EYES: The sclera were anicteric and conjunctiva were pink and moist. Extraocular movements were intact and pupils were equal round and reactive to light. Eyelids were unremarkable. ABDOMEN: Soft and nontender with normal bowel sounds. SKIN: Skin is clear with no lesions or rashes and otherwise unremarkable. GENITALIA: On exam is no erythema of the scrotum or in the groin area there is no hernia noted on exam patient has tenderness in the right inguinal area as well as palpation of the testicle I feel no fullness in the scrotum around the testicle. NEUROLOGIC: Patient is alert and oriented x3. Cranial nerves II through XII are grossly intact. Motor and sensory are also intact. Normal speech, volume and content. Symmetrical smile. MUSCULOSKELETAL: Normal extremities with adequate strength and full range of motion. No lower extremity swelling or edema. No calf tenderness. LYMPHATICS: No significant lymphadenopathy is noted PSYCHIATRIC: Normal psychiatric evaluation. Course Vital Signs 03/13/23 17:45 Temperature 97.8 F Pulse Rate 94 Respiratory 20 Rate Blood Pressure 125/65 O2 Sat by Pulse 96 Oximetry Medical Decision Making - Medical Decision Making Was pt. sent in by a medical professional or institution (, PA, CABLE LAYER, urgent care, hospital, or penitentiary...) When possible be specific @ -No Did you speak to anyone other than the patient for history (EMS, parent, family, police, friend...)? What history was obtained from this source @ -No Did you review nursing and triage notes (agree or disagree)? Why? @ -I reviewed and agree with nursing and triage notes Were old charts reviewed (outside hosp., previous admission, EMS record, old EKG, old radiological studies, urgent care reports/EKG's, penitentiary records)? Report findings @ -No old charts were reviewed Differential Diagnosis (chest pain, altered mental status, abdominal pain women, abdominal pain men, vaginal bleeding, weakness, fever, dyspnea, syncope, headache, dizziness, GI bleed, back pain, seizure, CVA, palpatations, mental health, musculoskeletal)? @ -Testicular torsion, epididymitis, varicocele, hydrocele, inguinal strain, this is not a nonocclusive list EKG interpreted by me (3pts min.). @ -As above X-rays interpreted by me (1pt min.). @ -None done CT interpreted by me (1pt min.). @ -None done U/S interpreted by me (1pt. min.). @ -Ultrasound showed no signs of torsion, showed no signs of epididymitis, it did show a small hydrocele What testing was considered but not performed or refused? (CT, X-rays, U/S, labs)? Why? @ -None What meds were considered but not given or refused? Why? @ -None Did you discuss the management of the patient with other professionals (professionals i.e. , PA, CABLE LAYER, lab, RT, psych nurse, case management social worker, scale and skip car operator, teacher, risk officer, caser up)? Give summary @ -No Was smoking cessation discussed for >3mins.? @ -No Was critical care preformed (if so, how long)? @ -No Were there social determinants of health that impacted care today? How? (Homelessness, low income, unemployed, alcoholism, drug addiction, transportation, low edu. Level, literacy, decrease access to med. care, snf, rehab)? @ -No Was there de-escalation of care discussed even if they declined (Discuss DNR or withdrawal of care, Hospice)? DNR status @ -No What co-morbidities impacted this encounter? (DM, HTN, Smoking, COPD, CAD, Cancer, CVA, ARF, Chemo, Hep., AIDS, mental health diagnosis, sleep apnea, morbid obesity)? @ -None Was patient admitted / discharged? Hospital course, mention meds given and route, prescriptions, significant lab abnormalities, going to OR and other pertinent info. @ -Is given a shot of Toradol. Patient states when he laid on his left side the pain was completely gone. Patient states lifting the right leg definitely exacerbated the pain patient patient thinks he pulled a muscle when he was using the pole saw. Undiagnosed new problem with uncertain prognosis? @ -No Drug Therapy requiring intensive monitoring for toxicity (Heparin, Nitro, Insulin, Cardizem)? @ -No Were any procedures done? @ -No Diagnosis/symptom? @ -Inguinal strain Acute, or Chronic, or Acute on Chronic? @ -Acute Uncomplicated (without systemic symptoms) or Complicated (systemic symptoms)? @ -Uncomplicated Side effects of treatment? @ -No Exacerbation, Progression, or Severe Exacerbation? @ -No Poses a threat to life or bodily function? How? (Chest pain, [place], [place], pneumonia, PE, COPD, DKA, ARF, appy, cholecystitis, CVA, Diverticulitis, Homicidal, Suicidal, threat to staff... and all critical care pts) @ -No - Lab Data Lab Results 03/13/23 Range/Units 18:04 Urine Color Yellow Urine Appearance Clear (Clear) Urine pH 7.5 (5.0-8.0) Ur Specific [place] 1.018 (1.001-1.035) Urine Protein Negative (Negative) Urine Glucose (UA) Negative (Negative) Urine Ketones Negative (Negative) Urine Blood Negative (Negative) Urine Nitrite Negative (Negative) Urine Bilirubin Negative (Negative) Urine Urobilinogen 2.0 (<2.0) mg/dL Ur Leukocyte Esterase Negative (Negative) Disposition Clinical Impression: Inguinal muscle strain Disposition: HOME SELF-CARE Condition: Good Instructions (If sedation given, give patient instructions): Muscle Strain (ED) Prescriptions: Ketorolac [Toradol] 10 mg PO Q6HR #15 tab Is patient prescribed a controlled substance at d/c from ED?: No Referrals: Jacob Segura MD [Primary Care Provider] - 1-2 days Time of Disposition: 20:46
--- NOTE | 2023-03-13 19:31 | US ---
EXAMINATION TYPE: US scrotum with doppler. Grayscale and color Doppler Duplex imaging performed of diana eugene scrotum. DATE OF EXAM: 03/13/2023 COMPARISON: 07/03/19 CLINICAL INDICATION: Male, 62 years old with history of Right groin and testicular pain; Rt groind an d testicle pain after doing yard work yesterday EXAM MEASUREMENTS: TESTICLES: Right Testicle: 4.7 x 3.2 x 2.3 cm Left Testicle: 4.8 x 2.8 x 2.3 cm EPIDIDYMIS HEAD: Right Epididymis: 1.1 cm Left Epididymis: 1.0 cm Doppler performed to assess for testicular vascularity; good bilateral color flow and waveforms are s een. There is no evidence of testicular torsion. Presence of hydroceles: Small on right side Presence of varicoceles: No IMPRESSION: Small right-sided hydrocele. Otherwise unremarkable study.
--- NOTE | 2023-03-13 19:32 | US ---
EXAMINATION TYPE: US groin RT DATE OF EXAM: 03/13/2023 COMPARISON: NONE CLINICAL INDICATION: Male, 62 years old with history of Right groin and testicular pain; Right groin pain after doing yard work yesterday FINDINGS: No obvious abnormalities visualized. No enlarged lymph nodes or findings consistent with h ernias seen. IMPRESSION: No discrete abnormality seen.
[2023-03-13] MEDS ORDERED: ACET/COD 300 MG/30 MG STARTER PACK 6 TAB BTL PO STA (20:47)
[2023-03-13] MEDS ORDERED: ONDANSETRON 4 MG ODT STARTER PACK 2 TAB BTL PO STA (20:47)
[2023-03-13 20:49] VITALS: BP 130/86; PULSE 77; RESP 18; TEMP 98.9
== END 2023-03-13 21:02 | disposition home or self-care (01) ==
LOC: EC 17:45
DX: S39.011A Strain of muscle, fascia and tendon of abdomen, initial encounter (principal); N43.3 Hydrocele, unspecified; E11.9 Type 2 diabetes mellitus without complications; I10 Essential (primary) hypertension; Z79.84 Long term (current) use of oral hypoglycemic drugs; Z79.82 Long term (current) use of aspirin; Z79.899 Other long term (current) drug therapy; Z91.040 Latex allergy status; Z88.8 Allergy status to other drugs, medicaments and biological substances; X58.XXXA Exposure to other specified factors, initial encounter
CPT/HCPCS: 81003; 93975; 76870; 76882; 99284; 96372; J1885; S0119

== ENCOUNTER 2024-06-02 18:54 | Emergency (ER) | payer MEDICARE ==
[2024-06-02] MEDS: ACETAMINOPHEN TAB 500 MG TAB PO STA (21:20)
--- NOTE | 2024-06-02 21:21 | XR ---
EXAMINATION TYPE: XR thoracic spine complete DATE OF EXAM: 06/02/2024 9:09 PM CLINICAL INDICATION: Male, 63 years old with history of fall; COMPARISON: None TECHNIQUE: XR thoracic spine complete views of the spine in Frontal and lateral projections. FINDINGS: No evidence of acute fracture. There is scattered multilevel disk space narrowing without loss of ve rtebral body height. There is normal alignment of the thoracic vertebral bodies. Scattered osteophyte formation along the anterior and lateral aspects of the vertebral bodies. Neural foramen are patent given limitations of this exam. Spinal canal appears patent. IMPRESSION: 1. No acute osseous pathology. 2. [id number] multilevel degeneration changes of the spine. [facility], , 06/02/2024 9:18 PM
--- NOTE | 2024-06-02 21:23 | XR ---
EXAMINATION TYPE: XR chest 2V DATE OF EXAM: 06/02/2024 9:09 PM CLINICAL INDICATION: Male, 63 years old with history of fall COMPARISON: Chest radiographs from 09/01/2022 TECHNIQUE: XR chest 2V Frontal view of the chest. FINDINGS: Lungs/Pleura: There is no evidence of pleural effusion, focal consolidation, or pneumothorax. Pulmonary vascularity: Unremarkable. Heart/mediastinum: Cardiomediastinal silhouette is enlarged. Musculoskeletal: No acute osseous pathology. IMPRESSION: No acute cardiopulmonary disease/process. [facility], , 06/02/2024 9:21 PM
--- NOTE | 2024-06-02 22:22 | ED ---
Fall HPI - General Chief Complaint: Fall Stated Complaint: Fall, Abd pain Time Seen by Provider: 06/02/24 20:20 Source: patient, RN notes reviewed Mode of arrival: wheelchair Limitations: no limitations - History of Present Illness Initial Comments: 63-year male presented to ER with a chief complaint of a fall. Patient states around 5:30 PM he was mowing the lawn. He states the lawnmower got caught on a parking log. He states he got off of the lawnmower and was attempting to lift the back and to help her get over the bump when the lawnmower took off. He states he fell landing on all fours. He states since then he has been endorsing a epigastric and thoracic back pain. He has not taken anything for his symptoms at this time. Denies any shortness of breath, chest pain or radiation of pain. No paresthesias. No other injuries or complaints. - Related Data Home Medications Medication Instructions Recorded Confirmed Aspirin [Adult Low Dose Aspirin EC] 81 mg PO DAILY 02/15/19 03/13/23 Gabapentin [Neurontin] 600 mg PO BID 02/15/19 03/13/23 Montelukast Sodium [Singulair] 10 mg PO HS 02/15/19 03/13/23 amLODIPine BESYLATE 10 mg PO DAILY 02/15/19 03/13/23 hydroCHLOROthiazide [Hydrodiuril] 25 mg PO DAILY 02/15/19 03/13/23 traMADol HCL 50 mg PO DAILY PRN 07/03/19 03/13/23 lisinopriL [Zestril] 10 mg PO DAILY 10/18/20 03/13/23 Acetaminophen [Tylenol 8 Hour] 1,300 mg PO BID 05/19/21 03/13/23 Ergocalciferol [Vitamin D2 (1250 1,250 mcg PO Q14D 05/19/21 03/13/23 Mcg = 90736 Iu)] Citalopram Hydrobromide [CeleXA] 20 mg PO DAILY 08/13/21 03/13/23 Ibuprofen [Advil] 400 mg PO BID 08/13/21 03/13/23 Fluticasone Nasal [place] [Flonase 1 spray EA NOSTRIL DAILY 03/13/23 03/13/23 Nasal [place]] Furosemide [Lasix] 20 mg PO DAILY 03/13/23 03/13/23 Insulin Glargine,Hum.rec.anlog 40 unit SQ DAILY 03/13/23 03/13/23 [Lantus Solostar Pen] Pioglitazone [Actos] 45 mg PO DAILY 03/13/23 03/13/23 Potassium Chloride ER [K-Dur 10] 10 meq PO DAILY 03/13/23 03/13/23 Prostate Supplement 1 tab PO HS 03/13/23 03/13/23 SILVER sulfADIAZINE Cream 1 applic TOPICAL DAILY 03/13/23 03/13/23 [Silvadene 1% Cream] Tamsulosin [Flomax] 0.4 mg PO DAILY 03/13/23 03/13/23 traZODone HCL [Desyrel] 100 mg PO HS 03/13/23 03/13/23 Previous Rx's Medication Instructions Recorded Ketorolac [Toradol] 10 mg PO Q6HR #15 tab 03/13/23 Cyclobenzaprine [Flexeril] 10 mg PO HS #15 tab 06/02/24 Lidocaine 4% Patch 1 patch TOPICAL DAILY #30 patch 06/02/24 Allergies Allergy/AdvReac Type Severity Reaction Status Date / Time latex Allergy REDNESS Verified 03/13/23 20:47 eye dilating drop AdvReac jaw locked Uncoded 03/13/23 17:49 Review of Systems ROS Statement: Those systems with pertinent positive or pertinent negative responses have been documented in the HPI. ROS Other: All systems not noted in ROS Statement are negative. Past Medical History Past Medical History: Diabetes Mellitus, Hypertension, Osteoarthritis (OA) Additional Past Medical History / Comment(s): Torn meniscus right knee; Vertigo; Lower back pain. Pre-diabetic History of Any Multi-Drug Resistant Organisms: None Reported Additional Past Surgical History / Comment(s): Varicocele Past Anesthesia/Blood Transfusion Reactions: Family History of Problems w/ Anesthesia Additional Past Anesthesia/Blood Transfusion Reaction / Comment(s): BROTHERS HAD REACTION, UNSURE WHAT. Past Psychological History: No Psychological Hx Reported Smoking Status: Never smoker Past Alcohol Use History: Occasional, Rare Past Drug Use History: None Reported - Past Family History Father Brother(s) Family Medical History: Cancer Sister(s) Family Medical History: Deep Vein Thrombosis (DVT) General Exam Limitations: no limitations General appearance: alert, in no apparent distress Respiratory exam: Present: normal lung sounds bilaterally. Absent: respiratory distress, wheezes, rales, rhonchi, stridor Cardiovascular Exam: Present: regular rate, normal rhythm, normal heart sounds. Absent: systolic murmur, diastolic murmur, rubs, gallop, clicks GI/Abdominal exam: Present: soft, tenderness (epigastric), normal bowel sounds Back exam: Present: tenderness (Mid Thoracic paraspinal muscles. No overlying skin changes.) Neurological exam: Present: alert, oriented X3, CN II-XII intact Skin exam: Present: warm, dry, intact, normal color. Absent: rash Course Vital Signs 06/02/24 06/02/24 19:03 23:17 Temperature 98 F 97.9 F Pulse Rate 83 79 Respiratory 16 18 Rate Blood Pressure 108/70 110/68 O2 Sat by Pulse 97 99 Oximetry Medical Decision Making - Medical Decision Making Was pt. sent in by a medical professional or institution (, PA, MUSIC ARTIST, urgent care, hospital, or group home...) When possible be specific @ -No Did you speak to anyone other than the patient for history (EMS, parent, family, police, friend...)? What history was obtained from this source @ -No Did you review nursing and triage notes (agree or disagree)? Why? @ -I reviewed and agree with nursing and triage notes Were old charts reviewed (outside hosp., previous admission, EMS record, old EKG, old radiological studies, urgent care reports/EKG's, group home records)? Report findings @ -No old charts were reviewed Differential Diagnosis (chest pain, altered mental status, abdominal pain women, abdominal pain men, vaginal bleeding, weakness, fever, dyspnea, syncope, headache, dizziness, GI bleed, back pain, seizure, CVA, palpatations, mental health, musculoskeletal)? @ -Differential Musculoskeletal: Muscular strain, contusion, ligament sprain, fracture, arthritis, septic arthritis, bursitis, cellulitis, muscle spasm, nerve compression, DVT, arterial occlusion, herpes zoster, electrolyte abnormality, tumor.... This is not meant to be in all inclusive list EKG interpreted by me (3pts min.). @ -None done X-rays interpreted by me (1pt min.). @ -Chest x-ray interpreted by me negative for acute cardiopulmonary process. Thoracic spine x-ray showing degenerative changes. No acute process. CT interpreted by me (1pt min.). @ -None done U/S interpreted by me (1pt. min.). @ -None done What testing was considered but not performed or refused? (CT, X-rays, U/S, labs)? Why? @ -None What meds were considered but not given or refused? Why? @ -None Did you discuss the management of the patient with other professionals (professionals i.e. , PA, MUSIC ARTIST, lab, RT, psych nurse, health and social care teacher, exercise rider, teacher, special loan officer, case liner)? Give summary @ -No Was smoking cessation discussed for >3mins.? @ -No Was critical care preformed (if so, how long)? @ -No Were there social determinants of health that impacted care today? How? (Homelessness, low income, unemployed, alcoholism, drug addiction, tra nsportation, low edu. Level, literacy, decrease access to med. care, long-term, rehab)? @ -No Was there de-escalation of care discussed even if they declined (Discuss DNR or withdrawal of care, Hospice)? DNR status @ -No What co-morbidities impacted this encounter? (DM, HTN, Smoking, COPD, CAD, Cancer, CVA, ARF, Chemo, Hep., AIDS, mental health diagnosis, sleep apnea, morbid obesity)? @ -Morbid obesity Was patient admitted / discharged? Hospital course, mention meds given and route, prescriptions, significant lab abnormalities, going to OR and other pertinent info. @ -Discharge. 63-year-old male presented to ER with a chief complaint of a fall. History and physical exam completed. Vitals within limits. Patient in no signs of acute distress and nontoxic-appearing. No red flag back pain symptoms indicative cauda equina syndrome. Tenderness to thoracic spine and epigastric region. No overlying skin changes. Patient has full range of motion of all extremities. Patient denies head injury during fall. No peritoneal signs. X-rays obtained negative for acute process. Pain believed to musculoskeletal in nature.Patient received by mouth Tylenol, Flexeril and a lidocaine patch in the ER. Upon reevaluation, patient resting comfortably in exam room in no signs of acute distress. Results discussed with patient, all questions answered. Flexeril and lidocaine patches prescribed. Advise close follow-up with PCP. Strict return parameters discussed. Patient discharged in stable condition. Patient verbally expressed understanding agree with care plan. Case discussed with ED attending, Dr. Stallworth. Undiagnosed new problem with uncertain prognosis? @ -No Drug Therapy requiring intensive monitoring for toxicity (Heparin, Nitro, Insulin, Cardizem)? @ -No Were any procedures done? @ -No Diagnosis/symptom? @ -fall/back pain/musculoskeletal pain Acute, or Chronic, or Acute on Chronic? @ -Acute Uncomplicated (without systemic symptoms) or Complicated (systemic symptoms)? @ -Uncomplicated Side effects of treatment? @ -No Exacerbation, Progression, or Severe Exacerbation? @ -No Poses a threat to life or bodily function? How? (Chest pain, [place], MA, pneumonia, PE, COPD, DKA, ARF, appy, cholecystitis, CVA, Diverticulitis, Homicidal, Suicidal, threat to staff... and all critical care pts) @ -No - Radiology Data Radiology results: report reviewed, image reviewed Disposition Clinical Impression: Fall, Musculoskeletal pain, Back pain Disposition: HOME SELF-CARE Condition: Stable Instructions (If sedation given, give patient instructions): Fall Prevention (ED) Additional Instructions: I recommend [id number] ibuprofen. You may take Flexeril at bedtime for muscle pain. Follow-up with PCP. Return to the ER for new or worsening concerns. Prescriptions: Cyclobenzaprine [Flexeril] 10 mg PO HS #15 tab Lidocaine 4% Patch 1 patch TOPICAL DAILY #30 patch Is patient prescribed a controlled substance at d/c from ED?: No Referrals: Jacob Segura [Primary Care Provider] - 1-2 days Time of Disposition: 22:35
[2024-06-02] MEDS: LIDOCAINE 4% PATCH TOPICAL ONE (23:17)
[2024-06-02] MEDS: CYCLOBENZAPRINE 10 MG TAB PO STA (23:17)
[2024-06-02 23:19] VITALS: BP 110/68; PULSE 79; RESP 18; TEMP 97.9
== END 2024-06-02 23:19 | disposition home or self-care (01) ==
LOC: EC 18:54
CPT/HCPCS: 71046; 72072; 99284

== ENCOUNTER → 2024-06-05 | Outpatient (CLI) | payer MEDICARE ==
[2024-06-05 14:55] VITALS: BP 110/61; PULSE 82; RESP 18; TEMP 97.9
--- NOTE | 2024-06-05 15:38 | P.SLEEP ---
History of Present Illness DATE: 06/05/2024 CONSULTATION/NEW PATIENT EVALUATION HISTORY OF PRESENT ILLNESS/SLEEP-WAKE EVALUATION: 63-year-old gentleman had b een evaluated in the sleep center for possible obstructive sleep apnea hypopnea syndrome. SLEEP SCHEDULE: Usually sleep schedule from 10 PM to 4 AM. FALLING ASLEEP: No problems with falling asleep. DURING SLEEP: Patient usually sleeps on the side with snoring and awakenings from sleep 3 times with nocturia. No history of hypnogogical hallucinations, sleep paralysis, or cataplexy. DURING THE DAY/WAKE STATE: Patient feels sleepiness during the day. [place] sleepiness scale is 8. Patient takes 2 naps during the day to 11 AM and 2 PM. PAST MEDICAL HISTORY: Hypertension, osteoarthritis, degenerative disc disease, hyperlipidemia, BPH, diabetes mellitus type 2, colon polyps, cellulitis of the lower legs. PAST SURGICAL HISTORY: Uvula ectomy in 1991, tonsillectomy and adenoidectomy in 1973. MEDICATIONS: Please see below. SOCIAL HISTORY: Please see below. FAMILY HISTORY: Stroke, heart problems, sinus problems. REVIEW OF SYSTEMS: Snoring, multiple awakenings from sleep, sleepiness during the day. No fevers. No double vision. No recent chest pain. No shortness of breath. No abdominal pain. No bleeding episodes. No blood in urine. No seizure episodes. PHYSICAL EXAMINATION: GENERAL: A pleasant patient without any distress. VITAL SIGNS: Please see below, weight 345 pounds. HEENT: PERRLA, EOMI. Evaluation of oropharynx showed tongue protrudes midline, low position of soft palate Mallampati 3. NECK: Supple. No JVD. Thyroid is not palpable. 20.5 inches in circumference. LUNGS: Clear to percussion and to auscultation. Good air exchange. No wheezing or rhonchi. HEART: S1, S2 regular. No murmurs, gallops or rubs. ABDOMEN: Soft and nontender. Bowel sounds are present. No organomegaly appreciated. EXTREMITIES: No clubbing or cyanosis. [place] BLACK BELT: Awake, alert, and oriented x3. Cranial nerves 2 to 7 intact. There is no fasciculation or atrophy noted. No focal deficits observed. ASSESSMENT: 1. Snoring, multiple awakenings from sleep, low position of soft palate Mall ampati 3, wide neck 20.5 inches in circumference, sleepiness with 2 naps during the day. Obstructive sleep apnea hypopnea syndrome. 2. Obesity, BMI 50.9. 3. Hypertension. 4. Diabetes mellitus type 2. 5 hyperlipidemia. 6 . BPH. 7. Low back cellulitis. 8. Colon polyps. 9 . Degenerative disc disease. 10. Osteoarthritis. 11. Status post uvulectomy. 12. Status post tonsillectomy and adenoidectomy. PLAN: 1. Polysomnography for evaluation of patient's breathing during sleep. 2. Plan after reading sleep study. 3. Preferable position during sleep on the side. 4. No driving if patient feels any sleepiness. Patient is aware of civil and criminal liability for unsafe driving. 5. Sleep hygiene with regular sleep time for at least 7.5-8 hours. 6. Watching and aggressive losing weight. Thank you very much for referring this patient for consultation. Sincerely, Tavo Delaney MD, PhD, FAASM. Diplomat of [place] [employer], Sleep Medicine Board by [place] [employer] [place] [employer] Continuous Washer Operator [facility] [place] cc: Jacob Segura MD Past Medical History Past Medical History: Diabetes Mellitus, Hypertension, Osteoarthritis (OA) Additional Past Medical History / Comment(s): Torn meniscus right knee; Vertigo; Lower back pain. Pre-diabetic History of Any Multi-Drug Resistant Organisms: None Reported Past Surgical History: Orthopedic Surgery Additional Past Surgical History / Comment(s): Varicocele, Interlamineer stabilization (L2, L3) Past Anesthesia/Blood Transfusion Reactions: Family History of Problems w/ Anesthesia Additional Past Anesthesia/Blood Transfusion Reaction / Comment(s): BROTHERS HAD REACTION, UNSURE WHAT. Past Psychological History: No Psychological Hx Reported Smoking Status: Never smoker Past Alcohol Use History: Occasional, Rare Additional Past Alcohol Use History / Comment(s): SMOKED AGE 17 FOR 3 MONTHS. Past Drug Use History: None Reported - Past Family History Father Brother(s) Family Medical History: Cancer Sister(s) Family Medical History: Deep Vein Thrombosis (DVT) Medications and Allergies Home Medications Medication Instructions Recorded Confirmed Type Aspirin [Adult Low Dose Aspirin EC] 81 mg PO DAILY 02/15/19 06/05/24 History Gabapentin [Neurontin] 600 mg PO BID 02/15/19 06/05/24 History Montelukast Sodium [Singulair] 10 mg PO HS 02/15/19 03/13/23 History amLODIPine BESYLATE 10 mg PO DAILY 02/15/19 06/05/24 History hydroCHLOROthiazide [Hydrodiuril] 25 mg PO DAILY 02/15/19 03/13/23 History traMADol HCL 50 mg PO DAILY PRN 07/03/19 06/05/24 History lisinopriL [Zestril] 10 mg PO DAILY 10/18/20 06/05/24 History Acetaminophen [Tylenol 8 Hour] 1,300 mg PO BID 05/19/21 06/05/24 History Ergocalciferol [Vitamin D2 (1250 1,250 mcg PO Q14D 05/19/21 06/05/24 History Mcg = 29380 Iu)] Citalopram Hydrobromide [CeleXA] 20 mg PO DAILY 08/13/21 03/13/23 History Ibuprofen [Advil] 400 mg PO BID 08/13/21 06/05/24 History Fluticasone Nasal [place] [Flonase 1 spray EA NOSTRIL DAILY 03/13/23 03/13/23 History Nasal [place]] Furosemide [Lasix] 20 mg PO DAILY 03/13/23 03/13/23 History Insulin Glargine,Hum.rec.anlog 40 unit SQ DAILY 03/13/23 06/05/24 History [Lantus Solostar Pen] Ketorolac [Toradol] 10 mg PO Q6HR #15 tab 03/13/23 Rx Pioglitazone [Actos] 45 mg PO DAILY 03/13/23 06/05/24 History Potassium Chloride ER [K-Dur 10] 10 meq PO DAILY 03/13/23 03/13/23 History Prostate Supplement 1 tab PO HS 03/13/23 03/13/23 History SILVER sulfADIAZINE Cream 1 applic TOPICAL DAILY 03/13/23 03/13/23 History [Silvadene 1% Cream] Tamsulosin [Flomax] 0.4 mg PO DAILY 03/13/23 03/13/23 History traZODone HCL [Desyrel] 100 mg PO HS 03/13/23 06/05/24 History Cyclobenzaprine [Flexeril] 10 mg PO HS #15 tab 06/02/24 Rx Lidocaine 4% Patch 1 patch TOPICAL DAILY #30 patch 06/02/24 Rx Allergies Allergy/AdvReac Type Severity Reaction Status Date / Time latex Allergy REDNESS Verified 03/13/23 20:47 eye dilating drop AdvReac jaw locked Uncoded 03/13/23 17:49 Physical Exam Vitals: Vital Signs Temp Pulse Resp BP Pulse Ox 06/05/24 14:54 97.9 F 82 18 110/61 96 Intake and Output 06/05/24 06/05/24 06/05/24 06:59 14:59 22:59 Other: Weight 156.489 kg Sleep Note - Sleep Data ESS Total: 8 - Sleep Note Sleep Note: Temperature: 97.9 F Pulse Rate: 82 Respiratory Rate: 18 Blood Pressure: 110/61 SpO2: 96 Height: 5 ft 9 in Weight: 156.489 kg BMI: Neck Circumference: 20.5
== END ==
LOC: 3 N SLEEP 13:28
PROVIDERS: ATTEND Internal Medicine
CPT/HCPCS: 99211

== ENCOUNTER 2024-06-17 19:30 | Outpatient (CLI) | payer MEDICARE ==
--- NOTE | 2024-06-19 11:39 | P.PCN ---
Description of Procedure: POLYSOMNOGRAPHY REPORT PROCEDURE(S)/DATE(S): Polysomnography 06/17/2024 CLINICAL: Patient has been seen in the sleep center for evaluation of obstructive sleep apnea-hypopnea syndrome. Please see my consultation. Sleep study has been done for evaluation of patient breathing during the sleep. PROCEDURE: The standard montage for clinical polysomnography included the electroencephalogram, the electrooculogram, the mentalis surface electromyography and Lead II cardiography. The respiratory battery consisted of measurements of nasal/buccal air flow, pressure transducer measurements from nose, thoracic and/or abdominal effort and intercostal surface electromyography. Video monitoring has been done to check for any parasomnia events. Nocturnal oxyhemoglobin saturations were obtained by finger oximetry. Step-chandler titration with positive airway pressure was utilized to control the respiratory events, if necessary. RESULTS: During the diagnostic sleep study sleep efficiency was slightly decreased to 85.3%. Latency to sleep onset was short 6.0 min. Sleep architecture showed stage NI was extremely high 25.5%, Delta sleep was absent 0%, REM sleep was extremely high 38.9%. Respiratory channel showed 0 obstructive apneas, 1 mixed apneas, 0 central apneas, 84 hypopneas with lowest oxygen level 83%. Total apnea hypopnea index was 15.3. Heart rate was in the range between 68 and 74, average 71. EMG showed 0 periodic limb movements per hour with 0 micro-arousals per hour. IMPRESSIONS: 1. Moderate obstructive sleep apnea hypopnea syndrome. 2. No significant periodic limb movements have been documented. Please see other impressions from consultation PLAN: 1. The patient will have PAP titration for correction of respiratory abnormalities during the sleep. 2. Losing weight program. 3. Sleep hygiene with regular time in bed for at least 7-1/2 hours. 4. No driving if feeling sleepiness. Thank you very much for allowing me to participate in the management of your patient. Sincerely, Tavo Delaney MD, PhD, FAASM. Diplomat of [place] [employer], Sleep Medicine Board by [place] [employer] Advanced Practice [facility] [place] cc: Jacob Segura MD
== END 2024-06-18 05:50 | disposition home or self-care (01) ==
LOC: 3 N SLEEP 19:30
PROVIDERS: ATTEND Internal Medicine
CPT/HCPCS: 95810

== ENCOUNTER 2024-08-20 19:23 | Outpatient (CLI) | payer MEDICARE ==
--- NOTE | 2024-08-21 12:14 | P.PCN ---
Description of Procedure: CLINICAL: Titration with positive air pressure has been done for correction of respiratory abnormalities during sleep. DESCRIPTION OF PROCEDURE: The standard montage for clinical polysomnography included the electroencephalogram, the electrocardiogram, the mentalis surface electromyography and Lead II cardiography. The respiratory battery consisted of measurements of nasal /buccal air flow, pressure transducer measurements from the nose, thoracic and /or abdominal effort and intercostal surface electromyography. Video monitoring has been done to check for any parasomnia events. Nocturnal oxyhemoglobin saturations were obtained by finger oximetry. Step-chandler titration with positive airway pressure was utilized to control respiratory events. Raw data of sleep recording has been reviewed and is adequate. RESULTS: Sleep efficiency was practically normal 88.7%. Latency to sleep onset was normal 11.5 minutes.]. Sleep architecture showed stage N1 was short 2.4%, Delta sleep was absent 0%, REM sleep was increased to 32.8%. Heart rate was minimum 70 BPM, maximum 77 BPM, average 73 BPM. EMG showed 0 periodic limb movements per hour with 0 micriarousals per hour. PAP titration have been done with CPAP up to the pressure 10 cm H2O. The best results were at the pressure 10 cm H2O. Apnea hypopnea index reduced to 0. IMPRESSION: 1. Obstructive sleep apnea hypopnea syndrome on controle with PAP treatment. 2. No periodic limb movements have been documented. Please see other impressions from consultation. PLAN: 1. The patient will have treatment with positive air pressure equipment with the level of pressure AutoPAP 5-11 cm H2O and should use it every night for the whole night. 2. Watching and losing weight. 3. Sleep hygiene with regular time in bed for at least 8 hours. 4. No driving if feeling any sleepiness. 5. I will see the patient for follow up visit to explain the results of the test, recommendations, check compliance with treatment and make any necessary adjustment related to mask fitting, pressure and humidification. Thank you very much for allowing me to participate in the management of your patient. Sincerely, Tavo Delaney MD, PhD, FAASM Diplomat of [place] [employer] Sleep Medicine Board of [place] [employer] [facility] [place] cc: Jacob Segura MD
== END 2024-08-21 05:45 | disposition home or self-care (01) ==
LOC: 3 N SLEEP 19:23
PROVIDERS: ATTEND Internal Medicine
DX: G47.33 Obstructive sleep apnea (adult) (pediatric) (principal); Z99.89 Dependence on other enabling machines and devices; Z91.040 Latex allergy status; Z87.891 Personal history of nicotine dependence; Z91.048 Other nonmedicinal substance allergy status
CPT/HCPCS: 95811

== ENCOUNTER → 2024-12-26 | Outpatient (CLI) | payer MEDICARE ==
[2024-12-26 13:43] VITALS: BP 120/71; PULSE 90; RESP 20; TEMP 97.5
--- NOTE | 2024-12-26 14:35 | P.PROGSL ---
Subjective DATE: 12/26/2024 FOLLOW UP VISIT. Patient with obstructive sleep apnea hypopnea syndrome return to sleep center for follow-up visit. Information from previous visit have been reviewed. Patient is using PAP equipment every night for the whole night, getting PAP supplies in time. Patient sleeps better with CPAP and feels better during the day. The patient does not have significant problems with the mask, PAP unit and humidification. [place] sleepiness scale is 2. I checked information from PAP unit. PAP unit pressure 5-16, average pressure 6.0 cm H2O. Usage is 98% % for more then 4 hours, average 9.6 hours per night. Leak is extremely high 46 l/m. Apnea Hypopnea Index is significantly increased to 15. MEDICATIONS: Mounjaro once a day, trazodone, lisinopril, gabapentin During physical exam: GENERAL: A pleasant patient without any distress on wheelchair. VITAL SIGNS: Please see below, weight is 382 lbs. HEENT: PERRLA, EOMI.low position of soft palate, Mallapati 3. NECK: Supple. No JVD. LUNGS: Clear to percussion and to auscultation. Good air exchange. No wheezing or rhonchi. HEART: S1, S2 regular. ABDOMEN: Soft and nontender. Obese EXTREMITIES: No clubbing or cyanosis. SKIN INSTALLER: Awake, alert, and oriented x3. No focal deficit. Impressions: 1. Obstructive sleep apnea-hypopnea syndrome. Patient demonstrated great c ompliance with treatment, benefiting from treatment, but apnea hypopnea index still increased. 2. Obesity. 3. Hypertension. 4. Diabetes mellitus type 2. 5. Hyperlipidemia. 6. BPH. 7. History of colon polyps. 8. History of degenerative disc disease. 9. Status post uvulectomy, tonsillectomy and adenoidectomy. 10. Osteoarthritis. I adjusted pressure in [employer] unit to the range 5 to 17 cm of water, I increased temperature and heated tube to 78 degree, it was at 60 degree. We provide patient with different type of fullface mask with the goal to prevent leak. Plan: 1. Continue using PAP equipment every night for the whole night. 2. Sleep hygiene with regular time in bed for at least 7.5-8 hours 3. PAP unit should stay lower then position of the head. 4. Advised patient to remove all remaining water from humidifier canister daily and make it dry after each usage. Refill canister with fresh distilled water before each usage. 5. Watching weight. 6. Precautions related to driving. No driving if feel any sleepiness. 7. I will maintain prescription for PAP supplies including mask, tube, filters. 8. Follow up visit in 2 months or earlier if patient has any problems. Thank you very much for allowing me to participate in the management of your patient. Tavo Delaney MD, PhD, FAASM. Diplomat of [employer], Sleep Medicine Board by [employer] Palliative Care Coordinator of [facility] [place] Objective - Vital Signs Vital Signs: Vital Signs Temp 97.5 F L 12/26/24 13:43 Pulse 90 12/26/24 13:43 Resp 20 12/26/24 13:43 BP 120/71 12/26/24 13:43 Pulse Ox 90 L 12/26/24 13:43 FiO2 Intake & Output 12/25/24 12/26/24 12/26/24 18:59 06:59 18:59 Weight 173.272 kg Home Medications: Home Medications Medication Instructions Recorded Confirmed Type Aspirin [Adult Low Dose Aspirin EC] 81 mg PO DAILY 02/15/19 06/05/24 History Gabapentin [Neurontin] 600 mg PO BID 02/15/19 06/05/24 History Montelukast Sodium [Singulair] 10 mg PO HS 02/15/19 03/13/23 History amLODIPine BESYLATE 10 mg PO DAILY 02/15/19 06/05/24 History hydroCHLOROthiazide [Hydrodiuril] 25 mg PO DAILY 02/15/19 03/13/23 History traMADol HCL 50 mg PO DAILY PRN 07/03/19 06/05/24 History lisinopriL [Zestril] 10 mg PO DAILY 10/18/20 06/05/24 History Acetaminophen [Tylenol 8 Hour] 1,300 mg PO BID 05/19/21 06/05/24 History Ergocalciferol [Vitamin D2 (1250 1,250 mcg PO Q14D 05/19/21 06/05/24 History Mcg = 67831 Iu)] Citalopram Hydrobromide [CeleXA] 20 mg PO DAILY 08/13/21 03/13/23 History Ibuprofen [Advil] 400 mg PO BID 08/13/21 06/05/24 History Fluticasone Nasal [place] [Flonase 1 spray EA NOSTRIL DAILY 03/13/23 03/13/23 History Nasal [place]] Furosemide [Lasix] 20 mg PO DAILY 03/13/23 03/13/23 History Insulin Glargine,Hum.rec.anlog 40 unit SQ DAILY 03/13/23 06/05/24 History [Lantus Solostar Pen] Ketorolac [Toradol] 10 mg PO Q6HR #15 tab 03/13/23 Rx Pioglitazone [Actos] 45 mg PO DAILY 03/13/23 06/05/24 History Potassium Chloride ER [K-Dur 10] 10 meq PO DAILY 03/13/23 03/13/23 History Prostate Supplement 1 tab PO HS 03/13/23 03/13/23 History SILVER sulfADIAZINE Cream 1 applic TOPICAL DAILY 03/13/23 03/13/23 History [Silvadene 1% Cream] Tamsulosin [Flomax] 0.4 mg PO DAILY 03/13/23 03/13/23 History traZODone HCL [Desyrel] 100 mg PO HS 03/13/23 06/05/24 History Cyclobenzaprine [Flexeril] 10 mg PO HS #15 tab 06/02/24 Rx Lidocaine 4% Patch 1 patch TOPICAL DAILY #30 patch 06/02/24 Rx
== END ==
LOC: 3 N SLEEP 13:11
PROVIDERS: ATTEND Internal Medicine
DX: G47.33 Obstructive sleep apnea (adult) (pediatric) (principal); E66.9 Obesity, unspecified; I10 Essential (primary) hypertension; E11.9 Type 2 diabetes mellitus without complications; E78.5 Hyperlipidemia, unspecified; N40.0 Benign prostatic hyperplasia without lower urinary tract symptoms; M19.90 Unspecified osteoarthritis, unspecified site; Z91.040 Latex allergy status; Z88.8 Allergy status to other drugs, medicaments and biological substances; Z86.0100 Personal history of colon polyps, unspecified; Z87.39 Personal history of other diseases of the musculoskeletal system and connective tissue; Z90.89 Acquired absence of other organs; Z87.891 Personal history of nicotine dependence
CPT/HCPCS: 99212

== ENCOUNTER → 2025-02-27 | Outpatient (CLI) | payer MEDICARE ==
[2025-02-27 14:13] VITALS: BP 102/60; PULSE 90; RESP 16; TEMP 98.1
--- NOTE | 2025-02-27 14:34 | P.PROGSL ---
Subjective DATE: 02/27/2025 FOLLOW UP VISIT. Patient with obstructive sleep apnea hypopnea syndrome return to sleep center for follow-up visit. Information from previous visit have been reviewed. Patient is using PAP equipment every night for the whole night, getting PAP supplies in time. The patient does not have significant problems with the mask, PAP unit and humidification. [place] sleepiness scale is 2, which is perfect. I checked information from PAP unit. PAP unit pressure 5-17, average 10.2 cm H2O. Usage is 100% for more then 4 hours, average 8.5 hours per night. Leak is slightly increased to 30.3 l/m. Apnea Hypopnea Index is 5.1, which is normal. MEDICATIONS have been reviewed, please see below. During physical exam: GENERAL: A pleasant patient without any distress on wheelchair. VITAL SIGNS: Please see below, BMI 54.0. HEENT: PERRLA, EOMI.low position of soft palate, Mallapati 3 . NECK: Supple. No JVD. LUNGS: Clear to percussion and to auscultation. Good air exchange. No wheezing or rhonchi. HEART: S1, S2 regular. ABDOMEN: Soft and nontender. Obese EXTREMITIES: No clubbing or cyanosis. DINING ROOM HOST/HOSTESS: Awake, alert, and oriented x3. No focal deficit. Impressions: 1. Obstructive sleep apnea-hypopnea syndrome. Patient demonstrated great compliance with treatment, benefiting from treatment. 2. Obesity, BMI 54.0. 3. Hypertension. 4. Diabetes mellitus type 2. 5. BPH. 6. Hyperlipidemia. 7. History of colon polyps. 8. History of degenerative disc disease. 9. Status post tonsillectomy, adenoidectomy, uvulectomy. 10. Osteoarthritis. Plan: 1. Continue using PAP equipment every night for the whole night. 2. Sleep hygiene with regular time in bed for at least 7.5-8 hours 3. PAP unit should stay lower then position of the head. 4. Advised patient to remove all remaining water from humidifier canister daily and make it dry after each usage. Refill canister with fresh distilled water before each usage. 5. Watching weight. 6. Precautions related to driving. No driving if feel any sleepiness. 7. I will maintain prescription for PAP supplies including mask, tube, filters. 8. Follow up visit in 8 months or earlier if patient has any problems. Thank you very much for allowing me to participate in the management of your patient. Tavo Delaney MD, PhD, FAASM. Diplomat of [employer], Sleep Medicine Board by [employer] Sort Line Worker of [facility] [place] Objective - Vital Signs Vital Signs: Vital Signs Temp 98.1 F 02/27/25 14:13 Pulse 90 02/27/25 14:13 Resp 16 02/27/25 14:13 BP 102/60 02/27/25 14:13 Pulse Ox 96 02/27/25 14:13 FiO2 Intake & Output 02/26/25 02/27/25 02/27/25 18:59 06:59 18:59 Weight 168.283 kg Home Medications: Home Medications Medication Instructions Recorded Confirmed Type Aspirin [Adult Low Dose Aspirin EC] 81 mg PO DAILY 02/15/19 06/05/24 History Gabapentin [Neurontin] 600 mg PO BID 02/15/19 06/05/24 History Montelukast Sodium [Singulair] 10 mg PO HS 02/15/19 03/13/23 History amLODIPine BESYLATE 10 mg PO DAILY 02/15/19 06/05/24 History hydroCHLOROthiazide [Hydrodiuril] 25 mg PO DAILY 02/15/19 03/13/23 History traMADol HCL 50 mg PO DAILY PRN 07/03/19 06/05/24 History lisinopriL [Zestril] 10 mg PO DAILY 10/18/20 06/05/24 History Acetaminophen [Tylenol 8 Hour] 1,300 mg PO BID 05/19/21 06/05/24 History Ergocalciferol [Vitamin D2 (1250 1,250 mcg PO Q14D 05/19/21 06/05/24 History Mcg = 37042 Iu)] Citalopram Hydrobromide [CeleXA] 20 mg PO DAILY 08/13/21 03/13/23 History Ibuprofen [Advil] 400 mg PO BID 08/13/21 06/05/24 History Fluticasone Nasal [place] [Flonase 1 spray EA NOSTRIL DAILY 03/13/23 03/13/23 History Nasal [place]] Furosemide [Lasix] 20 mg PO DAILY 03/13/23 03/13/23 History Insulin Glargine,Hum.rec.anlog 40 unit SQ DAILY 03/13/23 06/05/24 History [Lantus Solostar Pen] Ketorolac [Toradol] 10 mg PO Q6HR #15 tab 03/13/23 Rx Pioglitazone [Actos] 45 mg PO DAILY 03/13/23 06/05/24 History Potassium Chloride ER [K-Dur 10] 10 meq PO DAILY 03/13/23 03/13/23 History Prostate Supplement 1 tab PO HS 03/13/23 03/13/23 History SILVER sulfADIAZINE Cream 1 applic TOPICAL DAILY 03/13/23 03/13/23 History [Silvadene 1% Cream] Tamsulosin [Flomax] 0.4 mg PO DAILY 03/13/23 03/13/23 History traZODone HCL [Desyrel] 100 mg PO HS 03/13/23 06/05/24 History Cyclobenzaprine [Flexeril] 10 mg PO HS #15 tab 06/02/24 Rx Lidocaine 4% Patch 1 patch TOPICAL DAILY #30 patch 06/02/24 Rx
== END ==
LOC: 3 N SLEEP 13:53
PROVIDERS: ATTEND Internal Medicine
DX: G47.33 Obstructive sleep apnea (adult) (pediatric) (principal); E66.9 Obesity, unspecified; I10 Essential (primary) hypertension; E11.9 Type 2 diabetes mellitus without complications; N40.0 Benign prostatic hyperplasia without lower urinary tract symptoms; E78.5 Hyperlipidemia, unspecified; M19.90 Unspecified osteoarthritis, unspecified site; Z86.0100 Personal history of colon polyps, unspecified; Z68.43 Body mass index [BMI] 50.0-59.9, adult; Z87.39 Personal history of other diseases of the musculoskeletal system and connective tissue; Z90.89 Acquired absence of other organs; Z98.890 Other specified postprocedural states; Z99.89 Dependence on other enabling machines and devices
CPT/HCPCS: 99212